=== PATIENT | male | born 1950 | race African-American/Black ===

== ENCOUNTER 2017-03-13 03:01 | Inpatient (IN) | payer MEDICARE ==
[2017-03-13] MEDS ORDERED: Fentanyl 20 MCG/ML 250 ML ONE (03:11)
[2017-03-13 03:28] LABS: Oxyhemoglobin 96.6 % (94.0-97.0); Sodium 142 mmol/L (135-148)
[2017-03-13 03:42] LABS: Mechanical Tidal Volume 450 ml; Modified Allen's Test POSITIVE; Vent YES
[2017-03-13 03:43] LABS: Mode SIMV; Pressure Support 10 cmH2O
[2017-03-13 04:28] LABS: #Lymphocytes 0.7 thou/uL (1.20-3.40); #Monocytes 0.5 thou/uL (0.11-0.59); #Neutrophils 4.4 thou/uL (1.40-6.50); %Basophils 0.3 % (0.0-1.0); %Eosinophils 0.3 % (0.0-10.0); %Lymphocytes 12.3 % (21.0-51.0); %Monocytes 8.4 % (0.0-10.0); Hematocrit 48.4 % (42.0-52.0); Mean Platelet Volume 11.1 fL (7.4-10.4); Red Blood Cell (RBC) Count 5.27 mill/uL (4.70-6.10); White Blood Cell (WBC) Count 5.6 thou/uL (4.8-10.8)
[2017-03-13 04:31] LABS: Lactic Acid - Sepsis 1.7 mmol/L (0.5-2.2)
[2017-03-13 04:35] LABS: ALT (SGPT) 22 U/L (8-55); AST (SGOT) 33 U/L (5-34); Alkaline Phosphatase 138 U/L (40-150); Anion Gap 13 mmol/L (10-20); BUN (Urea Nitrogen) 47 mg/dL (8.4-25.7); Bilirubin, Total 7.2 mg/dL (0.2-1.2); CK (CPK) 167 U/L (30-200); Calc. Creatinine Clearance 0 mL/min (70-130); Calcium 9.1 mg/dL (7.8-10.44); Carbon Dioxide 23 mmol/L (23-31); Chloride 106 mmol/L (98-107); Estimated GFR-MDRD 40; Globulin 4.2 g/dL (2.4-3.5)
[2017-03-13 04:36] LABS: Troponin I 0.089 ng/mL (< 0.028)
[2017-03-13] MEDS ORDERED: Sedation Protocol FS ONE (04:49)
[2017-03-13] MEDS ORDERED: Acetaminophen 325 MG/10.15 ML UDCUP PO PRN (04:49)
[2017-03-13] MEDS ORDERED: CCU Electrolyte Replacement 1 EACH IVPB ONE (04:49)
[2017-03-13] MEDS ORDERED: Potassium Phosphate 12 MMOL in Sodium Chloride 0.9% 250 ML 250 ML IV PRN (05:05)
[2017-03-13] MEDS ORDERED: Fentanyl 20 MCG/ML 250 ML IVPB SCH (05:05)
[2017-03-13] MEDS ORDERED: Potassium Chloride 40 MEQ in Sodium Chloride 0.9% 250 ML 250 ML IVPB PRN (05:05)
[2017-03-13] MEDS ORDERED: Magnesium Oxide 400 MG TAB PO PRN ×2 (05:05)
[2017-03-13] MEDS ORDERED: Potassium Phosphate 9 MMOL in Sodium Chloride 0.9% 100 ML IVPB PRN (05:05)
[2017-03-13] MEDS ORDERED: Magnesium 2 GM/NS 0.9% 100 ML 2 GM in Premix Bag 1 BAG IVPB PRN (05:05)
[2017-03-13] MEDS ORDERED: Potassium Chloride 20 MEQ TAB PO PRN (05:05)
[2017-03-13] MEDS ORDERED: Potassium Chloride 40 MEQ in Premix Bag 1 BAG IVPB PRN (05:05)
[2017-03-13] MEDS ORDERED: Propofol 1,000 MG/100 ML VIAL IV PRN (05:05)
[2017-03-13] MEDS ORDERED: CCU ELECTROLYTE REPLACEMENT PROTOCOL FS PRN (05:05)
[2017-03-13] MEDS ORDERED: DISCONTINUE PREVIOUS NARCOTIC PAIN MEDICATIONS AND BENZODIAZEPINES FS SCH (05:05)
[2017-03-13] MEDS ORDERED: Potassium Phosphate 15 MMOL in Sodium Chloride 0.9% 250 ML 250 ML IV PRN (05:05)
[2017-03-13] MEDS ORDERED: Lorazepam 2 MG/ML VIAL SLOW IVP PRN (05:05)
[2017-03-13] MEDS ORDERED: Morphine 4 MG/ML VIAL IV PRN (05:06)
[2017-03-13] MEDS ORDERED: Albuterol Sulfate 1.25 MG/3 ML NEB NEB PRN (05:47)
[2017-03-13] MEDS: Sodium Chloride 0.9% 1,000 ML IV SCH ×2 (05:58→08:00)
[2017-03-13] MEDS ORDERED: Vancomycin HCl 500 MG in Sodium Chloride 0.9% 100 ML IVPB SCH (06:00)
[2017-03-13] MEDS ORDERED: Piperacillin/Tazobactam 3.375 GM in Sodium Chloride 0.9% 100 ML IVPB SCH (06:00)
[2017-03-13 06:15] LABS: Amphetamine Not Detected (NotDetected); Methadone Not Detected (NotDetected); Methamphetamine Not Detected (NotDetected)
[2017-03-13 06:18] LABS: Acetaminophen Less than 6.0 mcg/mL (10.0-30.0); Salicylate Less than 8.0 mg/dL (15.0-30.0)
--- NOTE | 2017-03-13 07:18 | ER ---
DATE OF SERVICE: 03/13/2017 Please refer to the patient's electronic medical record for further details of his visit. In summary, the patient presents and transferred from [facility], where he presented wit h difficulty breathing and questionable near syncopal episode. Reportedly, he has sustained multiple falls over the past 2 days. He has a history of subdural hematoma and frequent falling in the past. He was intubated at [facility] prior to transfer due to respiratory distress. By thei r report, the patient had acute renal failure as well as CHF exacerbation. He was given Zosyn prior to transfer. This was for bilateral lower extremity cellulitis. On arrival, the patient was agitate d and poorly sedated. This improved significantly with ketamine administration on arrival. An OG tu be was placed, and a repeat chest x-ray was performed, which showed adequate endotracheal and OG tube placement. There is no significant vascular congestion noted on his chest x-ray. He does have lowe r extremity edema bilaterally, with erythema of both feet consistent with cellulitis, with multiple u lcerated areas as well. No family is available in the emergency department for further history or co nsultation. The patient remained hemodynamically stable throughout his ER stay. He was tachycardic on arrival and remained so during his stay. I did not give him IV fluids, given concern for CHF. Ad equate sedation was maintained with fentanyl drip. The patient was given vancomycin in addition to t he Zosyn that he had already received, to complete coverage for serious skin infection. He is in gua rded condition at the time of admission to the ICU.
--- NOTE | 2017-03-13 07:22 | HP-2 ---
LOCATION: [place], [place] DATE OF ADMISSION: 03/13/2017 CODE STATUS: Full. PRIMARY CARE PHYSICIAN: IZAIAH ATTENDING PHYSICIAN: Dr. Brina Franklin RESIDENT PHYSICIAN: Dr. Seth Damian HISTORIAN: Patient. History obtained from ER records as well as outside ER records. CHIEF COMPLAINT: Possible syncopal episode per ER records, however, this is extremely unclear. HISTORY OF PRESENT ILLNESS: The patient is a 66-year-old male from outside ER that was transferred h ere after he was intubated for an unknown reason. There is a questionable history of a syncopal epis ode and reports that family found him slumped in the recliner. He does have a history of numerous re cent falls per the outside ER record. ER COURSE: In outside ER, the patient given 2.25 grams of Zosyn and 1 liter normal saline, Versed an d etomidate. PAST MEDICAL HISTORY: 1. Gout. 2. CHF, ejection fraction 15-20% by the last available echocardiogram. 3. Hypertension. 4. Hyperlipidemia. 5. History of subdural hematoma. 6. History of multiple falls. 7. History of atrial flutter. PAST SURGICAL HISTORY: Hernia repair, subdural dural evacuation and AICD placement. ALLERGIES: Unknown. MEDICATIONS: 1. Allopurinol 300 mg. 2. Amlodipine 5 mg. 3. Atorvastatin 20 mg. 4. Carvedilol 25 mg. 5. Digoxin 0.125. 6. Furosemide 40 mg. 7. Coumadin, unknown dose. 8. Lisinopril 20 mg daily. 9. Potassium chloride 20 mEq daily. 10. Ranitidine 75 mg daily. 11. Tramadol 50 mg daily. 12. Aspirin 81 mg. FAMILY HISTORY: Unknown. SOCIAL HISTORY: Unable to obtain. REVIEW OF SYSTEMS: Unable to obtain. Although there is reports of possible syncopal episode from ou tside the ER. PHYSICAL EXAMINATION: VITAL SIGNS: Blood 120/95, pulse 108, respiratory rate on the vent, 12 breaths per minute, T-max 97. 6, pulse ox 90% on the ventilator. Current weight 90 kilograms. GENERAL: The patient is sedated and on the ventilator. EYES: Pupils are pinpoint, conjunctival icterus present. ENT: TMs are pearly page without bulging or erythema. No evidence of hemotympanum. The patient is intubated with endotracheal and OG tubes in place. NECK: Supple. CARDIOVASCULAR: The patient was tachycardic. No murmurs, rubs or gallops. Radial pulse 2+. Pedal pulse 2+. RESPIRATORY: The patient is intubated. Otherwise, lungs are clear to auscultation bilaterally. ABDOMEN: Soft, nontender, normoactive bowel sounds, no masses, distention or organomegaly is appreci ated. EXTREMITIES: There are numerous ulcers with eschar on the bilateral lower extremities as well as don thematous bilateral lower extremities to the knee. MUSCULOSKELETAL: The patient had decreased tone secondary to sedation. NEUROLOGIC: Patient is sedated. LABORATORY DATA: White blood cell count 6.6, hemoglobin 16.2, hematocrit 47.5, platelets 134. Sodiu m 141, potassium 4.5, chloride 102, bicarbonate 21, BUN 47, creatinine 2.37, glucose 72, calcium 9.9, total protein 8.9, albumin 3.4, AST 50, ALT 32, alkaline phosphatase 173, magnesium 2.1, PT 22.9, IN R 2.0, PTT 32.2. Estimated GFR is 31. CK is 289, troponin I is 0.12. UA showed small amount of blood in the urine, otherwise negative. ABG showed pH of 7.53, pCO2 of 19. EKG showed atrial flutter. Chest x-ray showed an enlarged cardiac silhouette. ASSESSMENT AND PLAN: 1. Hypoxic respiratory failure. The patient will be admitted to the ICU, continued on ventilation p rotocol. Repeat a chest x-ray. The patient will be started on broad spectrum antibiotics. Consider Cardiology consult. Pulmonary/Critical Care will be consulted, appreciate recommendations. Conside r an MRI in the morning. We will check a UDS and alcohol level. 2. Acute on chronic renal failure. The patient will be given IV fluids at 50 mL per hour. We will trend daily BMPs. 3. Elevated troponins, they have trended down from 0.12 to 0.089. We will continue to monitor. 4. Hyperbilirubinemia. We will check a direct and total bilirubin and order a right upper quadrant ultrasound. 5. History of atrial flutter. The patient is anticoagulated. INR is therapeutic. We will repeat c oags and trend. 6. Prophylaxis. The patient will be given SCDs as his INR is currently therapeutic and Pepcid for d eep venous thrombosis and gastrointestinal prophylaxis respectively. DISPOSITION/LENGTH OF STAY: Greater than or equal to 2 days. Symptomatic medication will be provided. History and physical exam as well as management was discussed with Dr. Brina Franklin who agrees with th e above history and physical exam, assessment and plan unless otherwise noted in her addendum.
[2017-03-13 08:19] LABS: Bilirubin, Direct 6.3 mg/dL (0.1-0.3); Bilirubin, Total 8.4 mg/dL (0.2-1.2)
[2017-03-13 08:25] LABS: Oxyhemoglobin 96.8 % (94.0-97.0); Sodium 140 mmol/L (135-148)
[2017-03-13 08:26] LABS: Mechanical Tidal Volume 550 ml; Mode SIMV/PSV; Modified Allen's Test NOT DONE; Pressure Support 10 cmH2O; Vent YES
--- NOTE | 2017-03-13 08:26 | ULT ---
RIGHT UPPER QUADRANT ULTRASOUND: DATE: 03/13/17. HISTORY: Hyperbilirubinemia. COMPARISON: None available. FINDINGS: Increased echogenic material within the gallbladder likely related to a large amount of gallbladder s ludge. No definite gallbladder calculus is seen. The gallbladder wall it thickened measuring 0.4 cm in thickness. The common duct is normal in caliber measuring 0.3 cm. The pancreas and right kidney demonstrate a normal sonographic appearance. The right kidney measures 10.1 cm in length. The IVC and hepatic veins are prominent which may be related to volume status. The liver demonstrates a normal sonographic appearance and no hepatic mass is visualized. There is a small amount of intraperitoneal free fluid seen within the right upper quadrant. IMPRESSION: 1. Gallbladder sludge with thickening of the gallbladder wall. No gallbladder calculus is seen and common duct is normal in caliber. Thickening of the gallbladder wall can be seen with cholecystitis in the correct clinical scenario, hypoproteinemia, liver disease versus other etiologies. 2. Ascites. POS: [facility]
[2017-03-13] MEDS: Piperacillin/Tazobactam 2.25 GM in Sodium Chloride 0.9% 100 ML IVPB SCH ×3 (08:27→20:08)
--- NOTE | 2017-03-13 08:37 | RAD ---
FRONTAL RADIOGRAPH OF CHEST: Date: 03/13/17 COMPARISON: 09/11/16. HISTORY: Intubated patient with dyspnea. FINDINGS: Endotracheal tube and nasogastric tube in proper position. Stable transvenous AICD. Stable enlargemen t of the cardiac silhouette. There is dense opacity in the left lung base suggesting left lower lobe consolidation/collapse. Probable associated small left pleural effusion present. IMPRESSION: Lines and tubes as above. Dense pleural and parenchymal opacity in the left lung base. POS: OFF
[2017-03-13] MEDS ORDERED: Famotidine/PF 20 mg/2ml Vial SLOW IVP SCH (09:00)
[2017-03-13 09:16] LABS: Troponin I 0.084 ng/mL (< 0.028)
--- NOTE | 2017-03-13 15:23 | CON ---
DATE OF CONSULTATION: 03/13/2017 REASON FOR CONSULTATION: ?syncope. REFERRING PROVIDER: Seth Damian DO HISTORY OF PRESENT ILLNESS: Mr. Rivero is an unfortunate 66-year-old gentleman who is a patient of Dr Crystal Ackerman. The history is obtained from the chart. He is currently intubated and sedated with no family present. From the chart, it appears he was transferred from an outlying facility after being intubated. His f amily per the note states that he was found slumped over. No other history noted. PAST MEDICAL HISTORY: Cardiomyopathy with LVEF of 15-20%, hyperlipidemia, hypertension, previous sub dural hematoma, atrial flutter, hernia repair. ALLERGIES: None. HOME MEDICATIONS: Include aspirin, tramadol, ranitidine, potassium, lisinopril, Coumadin, Lasix, dig oxin, carvedilol, atorvastatin, amlodipine, allopurinol. SOCIAL HISTORY: Unobtainable. REVIEW OF SYSTEMS: Unobtainable. PHYSICAL EXAMINATION: VITAL SIGNS: Blood pressure 140/90, pulse 113, respirations 20. GENERAL: Patient is a pleasant male who is in no acute distress. The patient appears his/her stated age. He is currently intubated and sedated. NEUROLOGIC: The patient is alert and oriented times 3 with no focal neurologic deficits. HEENT: Sclerae without icterus. Mouth has moist mucous membranes with normal pallor. NECK: No JVD. Carotid upstroke brisk. No bruits bilaterally. LUNGS: Clear to auscultation with unlabored respirations. BACK: No scoliosis or kyphosis. CARDIAC: Regular rate and rhythm with normal S1 and S2. No S3 or S4 noted. No significant rubs, mu rmurs, thrills, or gallops noted throughout the precordium. PMI is not displaced. There is no angelic ternal heave. ABDOMEN: Soft, nontender, nondistended. No peritoneal signs present. No hepatosplenomegaly. No ab normal striae. EXTREMITIES: 2+ femoral and 2+ dorsalis pedis pulses. No cyanosis, clubbing, or edema. SKIN: No gross abnormalities. LABORATORY: Hemoglobin 15.2, white count 5.6. Creatinine 2.02, BUN 47, CK-MB of 8. Peak troponin 0 .089. BNP of 2659. IMPRESSION: 1. Respiratory failure. 2. ?syncope. 3. Cardiomyopathy with last catheterization dated 07/18/2016, felt to be normal. RECOMMENDATIONS: Etiology to his current demise is unknown. This may have been all heart failure re lated. If he truly slumped over, may have been due to dysrhythmia. I do not have the records from [facility] emergency room to note whether he had appropriate blood pressure. At this point, we will have the ICD interrogated. We will repeat his echo. His BNP suggest heart failure. Previous creatinine als o suggested that this is acute on chronic renal insufficiency. The patient has had a previous subdur al hematoma, I would recommend a repeat CT scan.
--- NOTE | 2017-03-13 18:22 | CON ---
DATE OF CONSULTATION: 03/13/2017 HISTORY OF PRESENT ILLNESS: Mr. Rivero is a 66-year-old male. History is obtained from the records s jay he is intubated. Apparently, he was intubated for altered mental status and transferred here. He is primarily followe d at the [facility]. He was here in October and at that time he had bilateral chronic subdural hematomas. I am told by the nursing staff that he has a history of frequent falls. He also has a history of a cardiomyopathy. PAST MEDICAL HISTORY: Remarkable for a lipid disorder, hypertension, atrial flutter, herniorrhaphy. It is unknown whether he smokes or drinks. He was a heavy drinker in the past. Reviewing older records, it appears that on 09/12/2016 of this year, he had bilateral ivy hole evacu ation of his subdurals by Dr. Ruiz. Apparently had atrial flutter in the perioperative period and was seen by Dr. Reyes. Prior to that admission, he was reportedly chronically anticoagulated. He does have a defibrillator in place. He apparently has undergone cardiac catheterization in the past. He was admitted in 07/2016 with facial lacerations, facial fractures. He was here from 07/19/2016 to 07/25/2016. He was discharged from the hospital in July on his Xarelto. He came back in approximately 6 weeks l ater with his subdural hematomas. There is a note on the admission H and P that the patient had stop ped his Xarelto sometime along the way on his own. FAMILY HISTORY: Negative for lung disease at an early age. PHYSICAL EXAMINATION: VITAL SIGNS: Heart rate is 113, blood pressure 114/90, respiratory rate is per mechanical ventilatio n, oximetry is 100%. HEENT: Pupils are small and sluggish. Sclerae are anicteric. LUNGS: Clear anteriorly. HEART: Regular rhythm. ABDOMEN: Soft. EXTREMITIES: Without asymmetry. I do not see any blood culture results yet in the computer. His white count was normal on presentati on. Hemoglobin was 15, where has in September it was 13, suggests maybe it was little intravascularly vol ume depleted. It is interesting in that his liver enzymes are normal, but his bilirubin is 8.4. His BNP was 2659. His albumin was 2.8. I do not see a urinalysis to determine whether or not he is hav ing proteinuria mixed with this. IMPRESSION: Altered mental status of unclear etiology. He has chronic stasis ulcers over both lower extremities. Encephalopathy of unclear etiology, will remain mechanically ventilated. GI has been consulted. Ult rasound may be suggestive of cholecystitis. His elevated creatinine may be secondary to intravascula r volume depletion. With a such limited history on him, it is hard to know what the primary problem is at this point. We will be happy to follow with the other physicians caring for him. Blood gas sh ows that he has mild metabolic acidosis, it is partially compensated with a pH 7.33, CO2 of 41, and p O2 of 160. I suspect this is related to his renal dysfunction. It would not be unreasonable to chec k a cortisol and ammonia level.
[2017-03-13] MEDS ORDERED: Amiodarone HCl 450 MG in Dextrose 5% in Water 250 ML IVPB SCH ×2 (19:00)
--- NOTE | 2017-03-13 19:03 | CON ---
DATE OF CONSULTATION: 03/13/2017 HISTORY OF PRESENT ILLNESS: Patient is a 66-year-old -[place] gentleman who was brought to [facility] emergency room for frequent falls. Apparently there he had some respiratory distress and was intubated. He adds nothing to history of present illness. Consultation for GI was done because of abnormal liver function tests. Apparently according to the electronic medical record and nursing personnel, the patient does not have a history of alcohol abuse. He just had an echocardiogram done and the preliminary ejection fraction was 13%. Reviewing his bilirubin from prior hospitalization july of this year, his bilirubin was elevated at 2.8, then went to 3.1; in September it was 1.7 and t his hospitalization it is 7.2 and 8.4. AST was elevated in July of this year. ALT was also elevate d in July of this year. These are now normal. Alkaline phosphatase is normal. PAST MEDICAL/SURGICAL HISTORY: Includes gout, congestive heart failure, hypertension, hyperlipidemia , subdural hematoma, multiple falls, facial fractures, and atrial flutter. PAST MEDICAL HISTORY: Includes subdural evacuation, defibrillator placement, herniorrhaphy. ALLERGIES: No known allergies per the electronic medical record. HOME MEDICATIONS: Include tramadol 50 mg p.o. q.6 hours p.r.n., Keppra 500 mg p.o. b.i.d., potassium chloride 10 mEq p.o. daily, omeprazole 20 mg p.o. daily, multivitamin 1 p.o. daily, lisinopril 10 mg p.o. daily, Lasix 40 mg p.o. b.i.d., digoxin 0.125 mg p.o. daily, cephalexin 500 mg p.o. q.6 hours, Coreg 25 mg p.o. b.i.d., Lipitor 10 mg p.o. at bedtime, allopurinol 300 mg p.o. daily, albuterol inha ler, acetaminophen with codeine, and albuterol. SOCIAL HISTORY, FAMILY HISTORY AND REVIEW OF SYSTEMS: Unobtainable. PHYSICAL EXAMINATION: GENERAL: Shows a sedated -[place] gentleman in no acute distress. VITAL SIGNS: Temperature 97.7, pulse 114, respiratory rate 12, blood pressure 109/83. HEENT: Shows scleral icterus. NECK: Supple. CHEST: Clear. CARDIOVASCULAR: Regular rate and rhythm. ABDOMEN: Protuberant, but soft. No organomegaly or masses appreciable. He has a small umbilical he rnia. RECTAL: Deferred. EXTREMITIES: Show some pitting edema on the left lower extremity and bilateral ulcers on both lower extremities. LABORATORY DATA: Shows a normal CBC except for platelet count of 103. Chemistries show a total bili madrigal 7.2 with normal transaminases and normal alkaline phosphatase. Repeat showed a total bilirubin 8.4 with a direct of 6.3. BNP was 2659. Troponin was 0.084. BUN is 47, creatinine 2.02, glucose 7 5, albumin 2.8. Toxicology showed a digoxin of 0.3. Salicylate was less than 8. Acetaminophen was less than 6. Plasma alcohol is less than 10. HIV is nonreactive. Syphilis is nonreactive. Right u pper quadrant ultrasound showed gallbladder sludge with thickening of the gallbladder wall, small rebecca unt of ascites, the common bile duct is normal in caliber. ASSESSMENT: 1. Respiratory failure. 2. Frequent falls. 3. History of subdural hematoma. 4. Isolated conjugated hyperbilirubinemia - most likely secondary to the patient's severe cardiomyop athy and reduced ejection fraction. Other possibilities would be acute worsening of chronic underlyi ng liver disease. RECOMMENDATIONS: 1. Hepatitis panel. 2. Continue to follow bilirubin. 3. May consider CT of the liver if renal function improves substantially. 4. We will follow with you.
[2017-03-13 19:47] LABS: Prothrombin Time 22.2 SEC (12.0-14.7)
[2017-03-13] MEDS ORDERED: Warfarin Sodium 5 MG TAB PO SCH (20:30)
[2017-03-14] MEDS: Piperacillin/Tazobactam 2.25 GM in Sodium Chloride 0.9% 100 ML IVPB SCH ×4 (01:02→20:42)
[2017-03-14] MEDS: Sodium Chloride 0.9% 1,000 ML IV SCH (01:02)
[2017-03-14] MEDS: Amiodarone In Dextrose 200 ML IVPB SCH ×2 (02:41→16:31)
[2017-03-14] MEDS: Vancomycin HCl 1.5 GM in Sodium Chloride 0.9% 250 ML 300 ML IVPB SCH (05:03)
[2017-03-14 05:35] LABS: PTT 38.4 SEC (22.9-36.1); Prothrombin Time 21.5 SEC (12.0-14.7)
[2017-03-14 05:44] LABS: Anion Gap 13 mmol/L (10-20); BUN (Urea Nitrogen) 40 mg/dL (8.4-25.7); Calc. Creatinine Clearance 55 mL/min (70-130); Calcium 8.8 mg/dL (7.8-10.44); Carbon Dioxide 25 mmol/L (23-31); Chloride 108 mmol/L (98-107); Estimated GFR-MDRD 50
[2017-03-14 05:46] LABS: ALT (SGPT) 19 U/L (8-55); AST (SGOT) 24 U/L (5-34); Alkaline Phosphatase 124 U/L (40-150); Bilirubin, Direct 5.7 mg/dL (0.1-0.3); Bilirubin, Total 7.4 mg/dL (0.2-1.2); Protein, Total 6.7 g/dL (5.8-8.1)
[2017-03-14 06:46] LABS: Band 2 % (5-11); Bite Cells SLIGHT = 2-5 cells (100X) (0-1/hpf); Hematocrit 50.1 % (42.0-52.0); Mean Platelet Volume 11.3 fL (7.4-10.4); Neutrophil 85 % (42-75); Nucleated RBC 1 % (0); Red Blood Cell (RBC) Count 5.45 mill/uL (4.70-6.10); White Blood Cell (WBC) Count 6.8 thou/uL (4.8-10.8)
[2017-03-14 07:53] LABS: Oxyhemoglobin 96.9 % (94.0-97.0); Sodium 144 mmol/L (135-148)
[2017-03-14 07:56] LABS: Mechanical Tidal Volume 550 ml; Modified Allen's Test NOT DONE; Vent YES
[2017-03-14 07:57] LABS: Mode SIMV/PSV; Pressure Support 10 cmH2O
[2017-03-14] MEDS ORDERED: Furosemide 20 MG/2 ML VIAL SLOW IVP SCH (08:15)
[2017-03-14] MEDS: D5 1/2 NS w/20 mEq KCL 1,000 ML IV SCH (08:43)
[2017-03-14] MEDS ORDERED: Pantoprazole 40 MG VIAL IVP SCH (09:00)
--- NOTE | 2017-03-14 09:03 | RAD ---
PORTABLE CHEST: COMPARISON: Prior day's study. HISTORY: Intubation. FINDINGS: Endotracheal and NG tubes are in satisfactory position. Heart size is enlarged. Internal defibrilla tor device is present. No signs of overt failure. IMPRESSION: Essentially stable exam. POS: [facility]
--- NOTE | 2017-03-14 12:23 | PRG ---
DATE OF SERVICE: 03/14/2017 SUBJECTIVE: Mr. Rivero is awake and alert. Surprisingly, he is in no distress. Passes a leak test. His minute volume is 7-8 liters a minute. OBJECTIVE: VITAL SIGNS: His blood pressure is 113/79, heart rate is 115, respiratory rate in the teens. Oximet ry is in the low 90s. LUNGS: Clear. HEART: Regular rhythm. ABDOMEN: Soft. Ammonia was normal yesterday. Cortisol was 16. LABORATORY AND IMAGING DATA: White count 6.8, hemoglobin 15 grams and platelets 100,000. Sodium 143, potassium 3.4, chloride 108, bicarbonate 25, BUN 40, creatinine 1.6. Bilirubin has gone from 8.4-7.4. He is in sinus rhythm now. ASSESSMENT AND PLAN: I think he is in extremely high risk for complications with anticoagulation, so I would recommend withholding anticoagulation at this point. He had a fall and then developed eithe r bilateral subdurals as a result of his fall at a later date on anticoagulation or independent of th e fall or perhaps from a fall that no one knew about. I think the risk of this happening again is hi gh because of his history of frequent falls and I would recommend no anticoagulation at least for now until he can be documented to be stable on his feet. I do believe he is a candidate for extubation at this point his encephalopathy for whatever reason has resolved. He has passed a leak test and evaristo l be extubated. CRITICAL CARE TIME: 30 minutes.
--- NOTE | 2017-03-14 14:18 | ADD-PRG ---
ADDENDUM: 03/14/[address] the note of Dr. Nancy Thayer. Mr. Rivero is a 66-year-old black male patient with significant history of heart failure who was trans ferred from an outside ED. He was found "slumped over" and was subsequently intubated and transporte d to our institution. This morning, the patient is awake and alert and ready to be extubated, which will be carried out lucinda rtly. Labs looked good with a hemoglobin of 15.5 and hematocrit of 50. Chemistries: Sodium is 143, potassium 3.4, chloride 108, bicarbonate is 25, BUN 40 and creatinine is 1.65. He has a significant elevation of the bilirubin to 7.4 with a direct of 5.7, although his transaminases are normal. Extu bation is soon to follow.
[2017-03-14] MEDS ORDERED: Warfarin Sodium 5 MG TAB PO SCH (17:00)
--- NOTE | 2017-03-14 18:13 | PRG ---
DATE OF SERVICE: 03/14/2017 SUBJECTIVE: The patient has been extubated. He reports he is hungry. He denies any abdominal pain. OBJECTIVE: VITAL SIGNS: Temperature is 98.2, pulse 106, respiratory rate 21 and blood pressure 109/71. LABORATORY DATA: Shows a normal CBC except for platelet count of 100,000. Chemistries showed a tota l bilirubin of 7.5, with a direct of 5.7. Transaminases and alkaline phosphatase are normal. Albumi n is 26. ASSESSMENT: 1. Isolated elevated conjugated bilirubin. 2. Respiratory failure. 3. Cardiomyopathy. RECOMMENDATIONS: Recheck bilirubin. If it continues to decrease, would suspect this is probably rel ated to his severe cardiomyopathy. No other workup needs to be performed.
--- NOTE | 2017-03-14 20:21 | PDOC.FM ---
- Subjective Subjective: Pt intubated and sedated but waking up with stimulation and somewhat following commands. While on sedation vacation over night, pt became very agitated and tried to self-extubate but was able to be re-sedated. No acute events otherwise. - Objective MAR Reviewed: Yes Vital Signs & Weight: Vital Signs (12 hours) Temp Pulse Resp Pulse Ox 03/14/17 18:22 106 H 24 H 100 03/14/17 16:00 98.5 F 03/14/17 15:08 106 H 21 H 96 03/14/17 12:00 98.2 F 96 03/14/17 11:08 115 H 18 98 03/14/17 10:35 116 H 26 H 94 L 03/14/17 10:00 18 Weight Admit Weight 89.811 kg Weight 90.7 kg Most Recent Monitor Data Heart Rate from ECG 108 NIBP 120/89 NIBP BP-Mean 101 Respiration from ECG 18 SpO2 98 I&O: 03/13/17 03/14/17 03/15/17 06:59 06:59 06:59 Intake Total 1979.7 1102.3 Output Total 325 3080 1065 Balance -325 -1100.3 37.3 Result Diagrams: 03/14/17 05:03 03/14/17 05:03 EKG Reviewed by me: Yes (sinus tach to 110s on tele monitor) Radiology Reviewed by me: Yes (right small pleural effusion) Phys Exam - Physical Examination Constitutional: NAD intubated & sedated HEENT: moist MMs, oral pharynx no lesions mild JVD poor air movement in right lung base Cardiovascular: no significant murmur regular but tachycardic Gastrointestinal: soft, non-tender, no distention, positive bowel sounds Musculoskeletal: edema present (trace UE edema) sedated Dx/Plan (1) Acute respiratory failure with hypoxia Code(s): J96.01 - ACUTE RESPIRATORY FAILURE WITH HYPOXIA Status: Acute (2) Acute on chronic systolic heart failure Code(s): I50.23 - ACUTE ON CHRONIC SYSTOLIC (CONGESTIVE) HEART FAILURE Status : Acute (3) Hyperbilirubinemia Code(s): E80.6 - OTHER DISORDERS OF BILIRUBIN METABOLISM Status: Acute (4) Acute worsening of stage 3 chronic kidney disease Code(s): N18.3 - CHRONIC KIDNEY DISEASE, STAGE 3 (MODERATE) Status: Acute (5) Dyslipidemia Code(s): E78.5 - HYPERLIPIDEMIA, UNSPECIFIED Status: Chronic (6) Hypertension Code(s): I10 - ESSENTIAL (PRIMARY) HYPERTENSION Status: Chronic Qualifiers: Hypertension type: unspecified Qualified Code(s): I10 - Essential (primary ) hypertension (7) Non-ischemic cardiomyopathy Code(s): I42.9 - CARDIOMYOPATHY, UNSPECIFIED Status: Chronic (8) Atrial fibrillation Code(s): I48.91 - UNSPECIFIED ATRIAL FIBRILLATION Status: Chronic Qualifiers: Atrial fibrillation type: paroxysmal Qualified Code(s): I48.0 - Paroxysmal atrial fibrillation (9) Atrial flutter Code(s): I48.92 - UNSPECIFIED ATRIAL FLUTTER Status: Resolved Qualifiers: Atrial flutter type: typical Qualified Code(s): I48.3 - Typical atrial flutter - Plan Plan: 66yo AAM with poor history but by review of records has h/o multiple prior subdural hematomas, CKD, HTN, CHF and HLD who presents from outside ED intubated from undetermined etiology aside from hypoxia-- 1) Acute hypoxic respiratory failure- pt did well on SIMV on HD #1, currently on spontaneous breathing trial and following commands. Likely will be extubated later today. CXR shows inc in interval rt pleural effusion overnight. Will give lasix IV this am and monitor I&Os. change IVF from NS to D5 1/2NS + 20KCl. Pulm on board. 2) presumed acute on chronic systolic CHF- repeated echo shows EF 5-10% with AICD and pacer. Fluid restrict, strict I&O, daily weight, monitor fluid status closely. lasix now as above. 3) ALEXSANDRA on CKD- acute kidney injury likely secondary to demand ischemia of kidneys during resp distress. continuing to improve this morning. avoid nephrotoxins and monitor for improvement. 4) A Flutter- resolved after AICD/pacer reset by [employer] last night. remains in sinus tach at this time. Not an anticoagulant candidate due to prior subdurals (one of which was spontaneous and frequent falls). HAS BLED score = 5 with almost 10% risk of major bleed. Will confirm meds with family as med list per outside ER stated pt is on coumadin. On amiodarone gtt per Dr. eGe. 5) Encephalopathy, NOS- undetermined if acute or chronic. may be sedation- induced, neurogenic, or neither. CT Head at outside facility negative. Will wean sedation, reorient and monitor for improvement. 6) Hyperbilirubinemia- likely due to severe CHF, however will monitor. GI on board. appreciate recs. Attending- Dr. Grace.
[2017-03-14] MEDS: traMADol HCl 50 MG TAB PO PRN (20:37)
[2017-03-14] MEDS ORDERED: Carvedilol 25 MG TAB PO SCH (20:45)
[2017-03-14 21:17] LABS: Bilirubin Moderate (Negative); Blood, Urine Large (Negative); Glucose, Urine (Dipstick) Negative (Negative); Ketone, Urine Negative (Negative); Nitrite Negative (Negative); Protein, Urine (Dipstick) 100 mg/dL (Neg-Trace)
[2017-03-14 21:18] LABS: Bacteria/HPF Rare-Few HPF (None Seen); Hyaline Casts/LPF 0-3 HYALINE CAST LPF (0-3 Hyaline); RBC/HPF GREATER THAN 50-TNTC HPF (0-3); Squamous Epithelial 0-3 HPF (0-3); WBC/HPF 21-50 HPF (0-3)
[2017-03-14] MEDS: Atorvastatin Calcium 40 MG TAB PO SCH (21:19)
[2017-03-15] MEDS ORDERED: Sodium Chloride 0.9% 500 ML IVPB SCH (02:00)
[2017-03-15] MEDS: Piperacillin/Tazobactam 2.25 GM in Sodium Chloride 0.9% 100 ML IVPB SCH ×3 (02:08→07:56)
[2017-03-15] MEDS: D5 1/2 NS w/20 mEq KCL 1,000 ML IV SCH (04:12)
[2017-03-15] MEDS: Vancomycin HCl 1.5 GM in Sodium Chloride 0.9% 250 ML 300 ML IVPB SCH (04:12)
[2017-03-15] MEDS: Amiodarone In Dextrose 200 ML IVPB SCH (04:12)
[2017-03-15 04:21] LABS: PTT 44.8 SEC (22.9-36.1); Prothrombin Time 23.1 SEC (12.0-14.7)
[2017-03-15 04:25] LABS: Band 1 % (5-11); Hematocrit 46.9 % (42.0-52.0); Mean Platelet Volume 11.8 fL (7.4-10.4); Neutrophil 76 % (42-75); Red Blood Cell (RBC) Count 5.09 mill/uL (4.70-6.10); Target Cells SLIGHT = 2-5 cells (100X) (0-1/hpf); White Blood Cell (WBC) Count 5.5 thou/uL (4.8-10.8)
[2017-03-15 04:30] LABS: Anion Gap 11 mmol/L (10-20); BUN (Urea Nitrogen) 34 mg/dL (8.4-25.7); Calc. Creatinine Clearance 59 mL/min (70-130); Calcium 8.4 mg/dL (7.8-10.44); Carbon Dioxide 27 mmol/L (23-31); Chloride 107 mmol/L (98-107); Estimated GFR-MDRD 55
[2017-03-15 04:31] LABS: ALT (SGPT) 17 U/L (8-55); AST (SGOT) 21 U/L (5-34); Alkaline Phosphatase 100 U/L (40-150); Bilirubin, Total 6.5 mg/dL (0.2-1.2); Protein, Total 6.2 g/dL (5.8-8.1)
--- NOTE | 2017-03-15 07:21 | PDOC.FM ---
- Subjective Subjective: Pt awake and oriented only to self. Reoriented during morning's visit. Denies any pain at this time. - Objective MAR Reviewed: Yes Vital Signs & Weight: Vital Signs (12 hours) Temp Pulse Resp Pulse Ox 03/15/17 04:00 98.3 F 03/15/17 02:54 72 22 H 03/15/17 00:00 97.8 F 03/14/17 22:43 111 H 33 H 03/14/17 20:00 97.6 F 111 H 26 H 94 L Weight Admit Weight 89.811 kg Weight 91.3 kg Most Recent Monitor Data Heart Rate from ECG 67 NIBP 91/66 NIBP BP-Mean 78 Respiration from ECG 23 SpO2 98 I&O: 03/14/17 03/15/17 03/16/17 06:59 06:59 06:59 Intake Total 1979.7 3791.3 Output Total 3080 1350 Balance -1100.3 2441.3 Result Diagrams: 03/15/17 04:00 03/15/17 04:00 EKG Reviewed by me: Yes (normal sinus rhythm in 60s) Radiology Reviewed by me: Yes (improved right & left pleural effusions, no consolidations) Phys Exam - Physical Examination Constitutional: NAD HEENT: moist MMs, oral pharynx no lesions facial lac- well healing Neck: no JVD, supple Respiratory: no wheezing, clear to auscultation bilateral Cardiovascular: RRR, no significant murmur Gastrointestinal: soft, non-tender mildly distended Musculoskeletal: no edema Neurological: non-focal Psychiatric: normal affect Deviation from normal: oriented to self Skin: no rash Dx/Plan (1) Acute respiratory failure with hypoxia Code(s): J96.01 - ACUTE RESPIRATORY FAILURE WITH HYPOXIA Status: Acute (2) Acute on chronic systolic heart failure Code(s): I50.23 - ACUTE ON CHRONIC SYSTOLIC (CONGESTIVE) HEART FAILURE Status : Acute (3) Hyperbilirubinemia Code(s): E80.6 - OTHER DISORDERS OF BILIRUBIN METABOLISM Status: Acute (4) Acute worsening of stage 3 chronic kidney disease Code(s): N18.3 - CHRONIC KIDNEY DISEASE, STAGE 3 (MODERATE) Status: Acute (5) Dyslipidemia Code(s): E78.5 - HYPERLIPIDEMIA, UNSPECIFIED Status: Chronic (6) Hypertension Code(s): I10 - ESSENTIAL (PRIMARY) HYPERTENSION Status: Chronic Qualifiers: Hypertension type: unspecified Qualified Code(s): I10 - Essential (primary ) hypertension (7) Non-ischemic cardiomyopathy Code(s): I42.9 - CARDIOMYOPATHY, UNSPECIFIED Status: Chronic (8) Atrial fibrillation Code(s): I48.91 - UNSPECIFIED ATRIAL FIBRILLATION Status: Chronic Qualifiers: Atrial fibrillation type: paroxysmal Qualified Code(s): I48.0 - Paroxysmal atrial fibrillation (9) Atrial flutter Code(s): I48.92 - UNSPECIFIED ATRIAL FLUTTER Status: Resolved Qualifiers: Atrial flutter type: typical Qualified Code(s): I48.3 - Typical atrial flutter - Plan Plan: 66yo AAM with poor history but by review of records has h/o multiple prior subdural hematomas, CKD, HTN, CHF and HLD who presents from outside ED intubated from undetermined etiology aside from hypoxia-- 1) Acute hypoxic respiratory failure- doing well after extubation yesterday. satting 90s on 2L O2. Etiology unclear at this time- may be secondary to fluid overload from CHF vs. arrhythmia (pt in persistent Aflutter on arrival) vs. infectious etiology. BCx show NGTD. Descalate abx at this time-- d/c vanc and zosyn and likely po augmentin vs. omnicef. 2) presumed acute on chronic systolic CHF- repeated echo shows EF 5-10% with AICD and pacer. Fluid restrict, strict I&O, daily weight, monitor fluid status closely. lasix restarted po today. 3) ALEXSANDRA on CKD- acute kidney injury likely secondary to demand ischemia during resp distress. continuing to improve this morning. avoid nephrotoxins and monitor for improvement. 4) A Flutter- resolved after AICD/pacer reset by [employer] upon arrival. Pt noted to be in Aflutter for many months per interrogation, but remains in sinus tach at this time. Not an anticoagulant candidate due to prior subdurals (one of which was spontaneous and frequent falls). HAS BLED score = 5 with almost 10% risk of major bleed. On amiodarone gtt per Dr. Gee, and will likely transition to po today. 5) Encephalopathy, NOS- may be sedation-induced, neurogenic, or neither. CT Head at outside facility negative. continue to reorient. 6) Hyperbilirubinemia- likely due to severe CHF with hepatic congestion. improving.
[2017-03-15] MEDS: Carvedilol 6.25 MG TAB PO SCH ×2 (07:55→18:10)
[2017-03-15] MEDS: Lisinopril 10 MG TAB PO SCH (07:56)
[2017-03-15] MEDS: Multivit, Therapeutic 1 TAB PO SCH (07:56)
[2017-03-15] MEDS: Furosemide 40 MG TAB PO SCH ×2 (07:56→13:20)
[2017-03-15] MEDS ORDERED: Carvedilol 25 MG TAB PO SCH (08:00)
--- NOTE | 2017-03-15 08:46 | PRG ---
DATE OF SERVICE: 03/15/2017 SUBJECTIVE: The patient is much better today. He is eating. He is ready for more solid food. He i s having no abdominal pain. OBJECTIVE: VITAL SIGNS: Blood pressure 93/66, respiratory rate of 20, pulse of 63, temperature is 97.9. CHEST: Clear. CARDIOVASCULAR: Regular rate and rhythm. ABDOMEN: Soft, nontender, without organomegaly. LABORATORY DATA: Shows a total bilirubin of 6.5, direct bilirubin of 5.0. AST and ALT as well as al kaline phosphatase were all normal. ASSESSMENT: Isolated, elevated, conjugated bilirubin -- is unusual picture, but probably related to the patient's cardiomyopathy and probably some hepatic congestion. It seems to be improving. No oth er further workup needs to be performed. RECOMMENDATIONS: We will sign off.
[2017-03-15] MEDS ORDERED: FLU VACC TS2017-18 (>65YR) 0.5 ML SYRINGE IM ONE (09:00)
[2017-03-15] MEDS: Amoxicillin/Potassium Clav 875 MG TAB PO SCH ×2 (09:53→20:22)
--- NOTE | 2017-03-15 09:55 | ULT ---
BLADDER ULTRASOUND: HISTORY: Moody not draining. Decreased output. FINDINGS: There is ascites noted. The bladder appears contracted. A Moody catheter is in place. The bladder wall appears somewhat thick-walled, even considering the contraction. IMPRESSION: 1. Moderate ascites. 2. Moody catheter appears to be within the bladder which appears completely contracted on this exam. POS: [facility]
--- NOTE | 2017-03-15 10:22 | RAD ---
PORTABLE CHEST: HISTORY: Respiratory distress. COMPARISON: 03/14/17 exam. FINDINGS: The endotracheal and NG tubes have been removed. Heart size is enlarged. No signs of overt failure. IMPRESSION: 1. Interval removal of the endotracheal and nasogastric tubes. 2. Marked cardiomegaly. POS: [facility]
[2017-03-15] MEDS: traMADol HCl 50 MG TAB PO PRN (12:15)
--- NOTE | 2017-03-15 12:39 | ADD-PRG ---
DATE OF SERVICE: 03/15/2017 ADDENDUM This is an addendum to the note of Dr. Nancy Thayer. Mr. Rivero is awake and alert this morning, having been extubated yesterday. His vital signs are stab le and we will transfer him to the regular floor. He really cannot give us much more history than we have already in that he thinks he "passed out." He denies any chest pain. His AICD has been interr ogated and evidently readjusted. His labs this morning are within normal range except for a slight e levation of his creatinine to 1.54 with GFR of 55.
--- NOTE | 2017-03-15 18:14 | PRG ---
DATE OF SERVICE: 03/14/2017 SUBJECTIVE: Mr. Rivero actually is awake, alert, in no distress after being extubated. OBJECTIVE: GENERAL: He is oriented x3. VITAL SIGNS: He is afebrile, heart rate 60, respiratory rate 21, oximetry is 99 on 2 liters, blood p ressure 98/54. LUNGS: Clear. HEART: Regular rhythm. ABDOMEN: Soft. LABORATORY DATA: White count 5.5, hemoglobin 14.8, platelets 78,000. Sodium 141, potassium 3.6, chloride 107, bicarbonate 27, BUN 34, creatinine 1.54, which is improved f rom 1.65 yesterday. IMPRESSION: Respiratory failure with encephalopathy that is resolved. All cultures are negative so far. I believe he is medically stable to move out of the critical care environment.
[2017-03-15] MEDS: Atorvastatin Calcium 40 MG TAB PO SCH (20:22)
[2017-03-15] MEDS: Amiodarone 200 MG TAB PO SCH (20:22)
[2017-03-16 05:01] LABS: Prothrombin Time 21.2 SEC (12.0-14.7)
[2017-03-16 05:12] LABS: Anion Gap 14 mmol/L (10-20); BUN (Urea Nitrogen) 33 mg/dL (8.4-25.7); Calc. Creatinine Clearance 63 mL/min (70-130); Calcium 8.6 mg/dL (7.8-10.44); Carbon Dioxide 22 mmol/L (23-31); Chloride 106 mmol/L (98-107); Estimated GFR-MDRD 59
[2017-03-16 05:26] LABS: Band 2 % (5-11); Hematocrit 47.9 % (42.0-52.0); Neutrophil 84 % (42-75); Red Blood Cell (RBC) Count 5.17 mill/uL (4.70-6.10); Target Cells SLIGHT = 2-5 cells (100X) (0-1/hpf); White Blood Cell (WBC) Count 8.1 thou/uL (4.8-10.8)
--- NOTE | 2017-03-16 09:11 | PRG ---
DATE OF SERVICE: 03/16/2017 HISTORY: Mr. Rivero says he is feeling better, says his breathing is better. PHYSICAL EXAMINATION: VITAL SIGNS: Blood pressure is 115/78, pulse 76 regular. LUNGS: Clear. NECK: The neck veins are markedly distended. CARDIAC: Normal S1, S2. ABDOMEN: Soft, nontender. EXTREMITIES: Mild edema. ASSESSMENT: 1. Severe congestive heart failure. 2. Ventricular arrhythmias. 3. Atrial arrhythmias. PLAN: 1. EP has been consulted about the possibility of ablation for the atrial flutter. 2. He has a defibrillator in place concerning ventricular tachycardia. No other recommendations at this point. The patient wishes to have the Moody catheter removed.
[2017-03-16] MEDS ORDERED: Furosemide 40 MG/4 ML VIAL SLOW IVP SCH (09:15)
[2017-03-16] MEDS: Amoxicillin/Potassium Clav 875 MG TAB PO SCH ×2 (09:51→20:23)
[2017-03-16] MEDS: Carvedilol 6.25 MG TAB PO SCH ×2 (09:51→16:04)
[2017-03-16] MEDS: Amiodarone 200 MG TAB PO SCH ×2 (09:51→20:23)
[2017-03-16] MEDS: Multivit, Therapeutic 1 TAB PO SCH (09:51)
[2017-03-16] MEDS: Furosemide 40 MG TAB PO SCH ×2 (09:52→16:04)
--- NOTE | 2017-03-16 10:15 | PDOC.FM ---
- Subjective Subjective: CC: Ready to go home HPI: Patient resting comfortably in bed. Explained plan for today. patient states his memory is returning and understands he was confused over the past few weeks. Does not remember when his last visited. - Objective MAR Reviewed: Yes Vital Signs & Weight: Vital Signs (12 hours) Temp Pulse Resp BP Pulse Ox 03/16/17 08:10 97.8 F 76 20 115/78 94 L 03/16/17 07:46 97 03/16/17 07:44 88 20 97 03/16/17 04:00 81 18 108/73 94 L 03/16/17 03:38 93 L 03/15/17 23:40 98 03/15/17 23:39 98 Weight Admit Weight 89.811 kg Weight 90.356 kg Most Recent Monitor Data Heart Rate from ECG 74 NIBP 86/61 NIBP BP-Mean 75 Respiration from ECG 24 SpO2 95 I&O: 03/15/17 03/16/17 03/17/17 06:59 06:59 06:59 Intake Total 3791.3 1926 Output Total 1350 955 Balance 2441.3 971 Result Diagrams: 03/16/17 04:25 03/16/17 04:25 EKG Reviewed by me: Yes (2 brief episodes (5 and 8 beats) of V-tach overnight. A -paced rate 80s) <Nick Rodriguez - Last Filed: 03/16/17 10:12> - Objective Vital Signs & Weight: Vital Signs (12 hours) Temp Pulse Resp BP Pulse Ox 03/16/17 12:04 82 22 H 03/16/17 11:32 97.4 F L 81 20 118/85 98 03/16/17 08:10 97.8 F 76 20 115/78 94 L 03/16/17 08:00 97.8 F 82 22 H 03/16/17 07:46 97 03/16/17 07:44 88 20 97 03/16/17 04:00 81 18 108/73 94 L 03/16/17 03:38 93 L Weight Admit Weight 89.811 kg Weight 90.356 kg Most Recent Monitor Data Heart Rate from ECG 74 NIBP 86/61 NIBP BP-Mean 75 Respiration from ECG 24 SpO2 95 I&O: 03/15/17 03/16/17 03/17/17 06:59 06:59 06:59 Intake Total 3791.3 1926 Output Total 1350 955 Balance 2441.3 971 Result Diagrams: 03/16/17 04:25 03/16/17 04:25 <David Flor - Last Filed: 03/16/17 14:23> Phys Exam - Physical Examination Constitutional: NAD HEENT: sclera anicteric Dry MM Neck: no nodes, supple Respiratory: no wheezing, clear to auscultation bilateral Cardiovascular: RRR, no significant murmur Gastrointestinal: soft, non-tender Musculoskeletal: no edema Neurological: non-focal, moves all 4 limbs Psychiatric: A&O x 3 (Person, place, time, and situation, ) Skin: no rash, cap refill <2 seconds <Nick Rodriguez - Last Filed: 03/16/17 10:12> Dx/Plan (1) Acute on chronic systolic heart failure Code(s): I50.23 - ACUTE ON CHRONIC SYSTOLIC (CONGESTIVE) HEART FAILURE Status : Acute Plan: TTE showed EF 5-10% - EP consulted due to a-flutter at time of admission. awaiting recommendations. AICD in place. - (2) Acute respiratory failure with hypoxia Code(s): J96.01 - ACUTE RESPIRATORY FAILURE WITH HYPOXIA Status: Acute Plan: respiratory status improving. Off supplemental oxygen. - will provided oxygen PRN. (3) Physical deconditioning Code(s): R53.81 - OTHER MALAISE Status: Acute Plan: PT/OT consulted for eval and treatment - will consult case management for potential placement options and discharge planning. (4) Acute worsening of stage 3 chronic kidney disease Code(s): N18.3 - CHRONIC KIDNEY DISEASE, STAGE 3 (MODERATE) Status: Acute Plan: Cr. Trending down. Continue to monitor. (5) Hyperbilirubinemia Code(s): E80.6 - OTHER DISORDERS OF BILIRUBIN METABOLISM Status: Acute Plan: GI evaluated and has signed off. Will repeat tomorrow. <Nick Rodriguez - Last Filed: 03/16/17 10:12> Attending Addendum - Attending Addendum I personally evaluated the patient and discussed the management with Dr. Rodriguez. I agree with the History, Examination, Assessment and Plan documented above with any addition or exceptions noted below. <David Flor - Last Filed: 03/16/17 14:23>
[2017-03-16] MEDS: Atorvastatin Calcium 40 MG TAB PO SCH (20:24)
[2017-03-16] MEDS ORDERED: Furosemide 100 MG/10 ML VIAL SLOW IVP SCH (22:00)
[2017-03-17 04:55] LABS: PTT 40.7 SEC (22.9-36.1); Prothrombin Time 21.9 SEC (12.0-14.7)
[2017-03-17] MEDS: Amiodarone 200 MG TAB PO SCH ×2 (05:13→20:33)
[2017-03-17] MEDS: Carvedilol 6.25 MG TAB PO SCH ×2 (05:13→18:49)
[2017-03-17] MEDS: Furosemide 40 MG TAB PO SCH ×2 (05:13→15:38)
[2017-03-17 05:20] LABS: ALT (SGPT) 23 U/L (8-55); AST (SGOT) 33 U/L (5-34); Alkaline Phosphatase 107 U/L (40-150); Anion Gap 14 mmol/L (10-20); BUN (Urea Nitrogen) 32 mg/dL (8.4-25.7); Bilirubin, Direct 5.6 mg/dL (0.1-0.3); Bilirubin, Total 7.7 mg/dL (0.2-1.2); Calc. Creatinine Clearance 70 mL/min (70-130); Calcium 8.5 mg/dL (7.8-10.44); Carbon Dioxide 23 mmol/L (23-31); Chloride 103 mmol/L (98-107); Estimated GFR-MDRD 66; Protein, Total 6.5 g/dL (5.8-8.1)
[2017-03-17 05:32] LABS: Hematocrit 46.5 % (42.0-52.0); Mean Platelet Volume 8.1 fL (7.4-10.4); Red Blood Cell (RBC) Count 5.09 mill/uL (4.70-6.10); White Blood Cell (WBC) Count 5.6 thou/uL (4.8-10.8)
[2017-03-17 05:34] LABS: Neutrophil 86 % (42-75); Nucleated RBC 3 % (0); Target Cells SLIGHT = 2-5 cells (100X) (0-1/hpf)
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
--- NOTE | 2017-03-17 09:19 | PDOC.FM ---
- Subjective Subjective: CC: Ready to leave hospital HPI: Patient states he is eager to leave hospital for inpatient rehab but understands he needs some additional treatment. came and visited yesterday and is in agreement with rehab. Nurse reports rash in right groin and states EP is going to try to perform ablation today. - Objective MAR Reviewed: Yes Vital Signs & Weight: Vital Signs (12 hours) Temp Pulse Resp BP BP Pulse Ox 03/17/17 07:40 98.3 F 85 16 118/79 97 03/17/17 06:20 83 20 96 03/17/17 05:36 97 03/17/17 05:13 114/82 03/17/17 04:00 84 18 114/82 95 03/16/17 22:56 83 16 95 Weight Admit Weight 89.811 kg Weight 91.716 kg Most Recent Monitor Data Heart Rate from ECG 74 NIBP 86/61 NIBP BP-Mean 75 Respiration from ECG 24 SpO2 95 I&O: 03/16/17 03/17/17 03/18/17 06:59 06:59 06:59 Intake Total 1926 1800 Output Total 955 1775 Balance 971 25 Result Diagrams: 03/17/17 04:20 03/17/17 04:20 EKG Reviewed by me: Yes (atrial paced rate 80s. 11 beats V-tach yesterday morning ) <Nick Rodriguez - Last Filed: 03/17/17 09:17> - Objective Vital Signs & Weight: Vital Signs (12 hours) Temp Pulse Resp BP BP BP BP 03/17/17 11:54 97.5 F L 85 20 123/89 03/17/17 11:27 83 20 03/17/17 08:02 118/79 103/74 03/17/17 07:40 98.3 F 85 16 118/79 03/17/17 06:20 83 20 03/17/17 05:36 03/17/17 05:13 114/82 03/17/17 04:00 84 18 114/82 Pulse Ox 03/17/17 11:54 100 03/17/17 11:27 95 03/17/17 08:02 03/17/17 07:40 97 03/17/17 06:20 96 03/17/17 05:36 97 03/17/17 05:13 03/17/17 04:00 95 Weight Admit Weight 89.811 kg Weight 91.716 kg Most Recent Monitor Data Heart Rate from ECG 74 NIBP 86/61 NIBP BP-Mean 75 Respiration from ECG 24 SpO2 95 I&O: 03/16/17 03/17/17 03/18/17 06:59 06:59 06:59 Intake Total 1926 1800 Output Total 955 1775 Balance 971 25 Result Diagrams: 03/17/17 04:20 03/17/17 04:20 <David Flor - Last Filed: 03/17/17 13:49> Phys Exam - Physical Examination Constitutional: NAD HEENT: moist MMs, sclera anicteric Respiratory: no wheezing, clear to auscultation bilateral Cardiovascular: RRR, no significant murmur Musculoskeletal: pulses present, edema present (trace) Neurological: non-focal, moves all 4 limbs Psychiatric: normal affect, A&O x 3 Deviation from normal: excoriation in right groin crease <Nick Rodriguez - Last Filed: 03/17/17 09:17> Dx/Plan (1) Acute on chronic systolic heart failure Code(s): I50.23 - ACUTE ON CHRONIC SYSTOLIC (CONGESTIVE) HEART FAILURE Status : Acute Plan: TTE showed EF 5-10% - EP planning for ablation this afternoon or tomorrow. (2) Acute respiratory failure with hypoxia Code(s): J96.01 - ACUTE RESPIRATORY FAILURE WITH HYPOXIA Status: Acute Plan: respiratory status improving. Off supplemental oxygen. - will provided oxygen PRN. (3) Physical deconditioning Code(s): R53.81 - OTHER MALAISE Status: Acute Plan: PT/OT consulted for eval and treatment - case management awaiting PT/OT recs for submission to centers. (4) Acute worsening of stage 3 chronic kidney disease Code(s): N18.3 - CHRONIC KIDNEY DISEASE, STAGE 3 (MODERATE) Status: Acute Plan: Cr. Trending down. Continue to monitor. (5) Hyperbilirubinemia Code(s): E80.6 - OTHER DISORDERS OF BILIRUBIN METABOLISM Status: Acute Plan: GI evaluated and has signed off. remains elevated - will call Dr. Reyes to see if any additional evaluation needs to be performed. <Nick Rodriguez - Last Filed: 12/05/17 09:17> Attending Addendum - Attending Addendum I personally evaluated the patient and discussed the management with Dr. Rodriguez. I agree with the History, Examination, Assessment and Plan documented above with any addition or exceptions noted below. awaiting electro-electro mechanic luz. Examined large scab on right side of face Estefanía sebceous cyst underneath. Can have excision outpt. <David Flor - Last Filed: 03/17/17 13:49>
[2017-03-17] MEDS: Amoxicillin/Potassium Clav 875 MG TAB PO SCH ×2 (10:16→20:32)
[2017-03-17] MEDS: Multivit, Therapeutic 1 TAB PO SCH (10:16)
[2017-03-17] MEDS ORDERED: Heparin 1000 UNIT/NS 500ML(OR) 500 ML ONE (16:30)
[2017-03-17] MEDS ORDERED: Heparin 10,000 UNITS/1 ML VIAL ONE (16:30)
[2017-03-17] MEDS ORDERED: Fentanyl 100 MCG/2 ML VIAL ONE (16:37)
[2017-03-17] MEDS ORDERED: Ketamine 50 MG/ML VIAL ONE (16:37)
[2017-03-17] MEDS ORDERED: Midazolam HCl 2 mg/2 ml Vial ONE (16:37)
[2017-03-17] MEDS ORDERED: Propofol 500 MG/50 ML VIAL ONE (16:37)
[2017-03-17] MEDS ORDERED: DOPamine 400 MG/D5W 250 ML 250 ML ONE (17:29)
[2017-03-17] MEDS ORDERED: Acetaminophen 325 MG TAB PO PRN (19:12)
[2017-03-17] MEDS ORDERED: traMADol HCl 50 MG TAB PO PRN (19:12)
[2017-03-17] MEDS ORDERED: Nitroglycerin 0.4 MG TAB (25 Tab Bottle) SL PRN (19:12)
[2017-03-17] MEDS ORDERED: Mag-Al 1200 mg/1200 mg/30 ML UDCUP PO PRN (19:12)
[2017-03-17] MEDS ORDERED: Bisacodyl 10 MG SUPP PR PRN (19:12)
[2017-03-17] MEDS ORDERED: diphenhydrAMINE 25 MG CAP PO PRN (19:12)
[2017-03-17] MEDS ORDERED: Ondansetron HCl/PF 4 MG/2 ML Vial IVP PRN (19:12)
[2017-03-17] MEDS ORDERED: Bisacodyl 5 MG TAB PO PRN (19:12)
[2017-03-17] MEDS ORDERED: Temazepam 15 MG CAP PO PRN (19:12)
[2017-03-17] MEDS: Atorvastatin Calcium 40 MG TAB PO SCH (20:33)
[2017-03-18 06:23] LABS: PTT 39.7 SEC (22.9-36.1); Prothrombin Time 20.9 SEC (12.0-14.7)
[2017-03-18 06:27] LABS: Anion Gap 13 mmol/L (10-20); BUN (Urea Nitrogen) 27 mg/dL (8.4-25.7); Calc. Creatinine Clearance 72 mL/min (70-130); Calcium 8.7 mg/dL (7.8-10.44); Carbon Dioxide 21 mmol/L (23-31); Chloride 105 mmol/L (98-107); Estimated GFR-MDRD 68
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
[2017-03-18 07:35] LABS: Hematocrit 51.8 % (42.0-52.0); Mean Platelet Volume 8.5 fL (7.4-10.4); Neutrophil 87 % (42-75); Ovalocytes SLIGHT = 2-5 cells (100X) (0-1/hpf); Poikilocytosis SLIGHT = 6-15 cells (100X) (0-5/hpf); Red Blood Cell (RBC) Count 5.54 mill/uL (4.70-6.10); Tear Drops SLIGHT = 2-5 cells (100X) (0-1/hpf)
[2017-03-18] MEDS: Amoxicillin/Potassium Clav 875 MG TAB PO SCH ×2 (09:09→21:11)
[2017-03-18] MEDS: Amiodarone 200 MG TAB PO SCH (09:09)
[2017-03-18] MEDS: Carvedilol 6.25 MG TAB PO SCH ×2 (09:09→16:48)
[2017-03-18] MEDS: Multivit, Therapeutic 1 TAB PO SCH (09:10)
[2017-03-18] MEDS: Lisinopril 10 MG TAB PO SCH (09:10)
[2017-03-18] MEDS: Furosemide 40 MG TAB PO SCH (09:10)
[2017-03-18] MEDS: Torsemide 100 MG TAB PO SCH (09:11)
[2017-03-18] MEDS ORDERED: Apixaban 5 MG TAB PO SCH ×3 (10:17→21:00)
--- NOTE | 2017-03-18 10:21 | PDOC.FM ---
- Subjective Subjective: CC: Ready to go home HPI: States he has been walking to bathroom since littlejohn removed. No concerns. Denies chest pain. Tolerated EP procedure well. - Objective MAR Reviewed: Yes Vital Signs & Weight: Vital Signs (12 hours) Temp Pulse Resp BP BP Pulse Ox 03/18/17 09:10 131/94 H 03/18/17 09:09 114/82 03/18/17 08:50 92 20 98 03/18/17 08:00 97.9 F 97 17 131/94 H 91 L 03/18/17 04:00 98.1 F 100 22 H 121/85 100 03/18/17 02:40 97 03/18/17 01:36 99 20 97 Weight Admit Weight 89.811 kg Weight 91.354 kg Most Recent Monitor Data Heart Rate from ECG 74 NIBP 86/61 NIBP BP-Mean 75 Respiration from ECG 24 SpO2 95 I&O: 03/17/17 03/18/17 03/19/17 06:59 06:59 06:59 Intake Total 1800 500 Output Total 1775 1875 Balance 25 -1375 Result Diagrams: 03/18/17 05:51 03/18/17 05:51 EKG Reviewed by me: Yes (atrial paced. rate 90s ) Phys Exam - Physical Examination Constitutional: NAD HEENT: moist MMs Neck: no nodes, supple Respiratory: no wheezing, no rales, no rhonchi, clear to auscultation bilateral Cardiovascular: RRR, no significant murmur Musculoskeletal: pulses present, edema present (trace) Neurological: non-focal, moves all 4 limbs Psychiatric: normal affect, A&O x 3 Dx/Plan (1) Acute on chronic systolic heart failure Code(s): I50.23 - ACUTE ON CHRONIC SYSTOLIC (CONGESTIVE) HEART FAILURE Status : Acute Plan: TTE showed EF 5-10%. Ablation yesterday. EP recommends no amiodarone, anticoagulation for 1 month, and continued management of heart failure - d/c pending placement. Patient states he is still not sure if he wants to go to inpatient rehab. Explained importance of PT to preventing future complications and falls. (2) Physical deconditioning Code(s): R53.81 - OTHER MALAISE Status: Acute Plan: PT/OT consulted for eval and treatment - awaiting placement. Discussed importance with patient. will follow up later today. (3) Acute worsening of stage 3 chronic kidney disease Code(s): N18.3 - CHRONIC KIDNEY DISEASE, STAGE 3 (MODERATE) Status: Acute Plan: Cr. Trending down. Continue to monitor. (4) Hyperbilirubinemia Code(s): E80.6 - OTHER DISORDERS OF BILIRUBIN METABOLISM Status: Acute Plan: GI evaluated and has signed off. follow up outpatient. (5) Acute respiratory failure with hypoxia Code(s): J96.01 - ACUTE RESPIRATORY FAILURE WITH HYPOXIA Status: Resolved Plan: respiratory status improving. - will provided oxygen PRN.
--- NOTE | 2017-03-18 12:16 | PRG ---
DATE OF SERVICE: 03/18/2017 SUBJECTIVE: Mr. Rivero is doing better today. He says he is not having shortness of breath. PHYSICAL EXAMINATION: VITAL SIGNS: Blood pressure 131/94, pulse 90. NECK: Veins are down. LUNGS: Clear. CARDIAC: Normal S1, S2. ASSESSMENT: 1. Status post atrial flutter ablation. 2. History of congestive heart failure, clinically has improved. PLAN: 1. He is on carvedilol. 2. Torsemide. 3. Amiodarone was stopped. 4. Eliquis for at least a month. 5. He is on daily potassium. 6. He is on lisinopril.
[2017-03-18 12:29] VITALS: BMI 26.6
[2017-03-18] MEDS ORDERED: Cepastat Lozenges 1 LOZ PO PRN (15:18)
--- NOTE | 2017-03-18 19:46 | PRG ---
DATE OF SERVICE: 03/18/2017 ELECTROPHYSIOLOGY FOLLOWUP NOTE SUBJECTIVE: Mr. Rivero is doing well one day after his ablation procedure. OBJECTIVE: VITAL SIGNS: Blood pressure is 117/78, heart rate 91, respirations 20, temperature 97.6 degrees Fahrenheit. GENERAL: He is alert and oriented man in no apparent distress. NECK: Supple. Jugular vein is not distended. CHEST: Coarse without crackles. CARDIOVASCULAR: Heart sounds are regular rate and rhythm. No murmur or gallop. ABDOMEN: Benign. Bowel sounds positive. EXTREMITIES: Lower extremity edema are without edema, clubbing, or cyanosis. Left precordial ICD insertion site is well healed. DATA BASE: Telemetry strips reviewed reveals sinus rhythm. The atrial pacing at 100 beats per minute noted. White count 7.0, hemoglobin 15.5, platelet count 87,000. INR is 1.8. Sodium 135, potassium 3.7, BUN is 27, creatinine 1.27. ASSESSMENT AND PLAN: Mr. Rivero is a 66-year-old male with history of congestive heart failure, nonischemic cardiomyopathy, history of ventricular arrhythmias and atrial arrhythmia as well. He has been with chest pain and atrial flutter ever since the ICD implant in the summer. He underwent ablation yesterday in sinus rhythm. He could be considered with continued anticoagulation, although somewhat increased risk for bleeding due to his chronically reduced platelet count. At this point, hence the improved platelet count we will not hold the Eliquis but consider if furtherbleeding issues are seen. Also, we will try to stop the amiodarone and monitor for recurrence of atrial fibrillation. FRANCIS
[2017-03-18] MEDS: Atorvastatin Calcium 40 MG TAB PO SCH (21:11)
[2017-03-19 06:08] LABS: PTT 42.3 SEC (22.9-36.1); Prothrombin Time 25.2 SEC (12.0-14.7)
[2017-03-19 06:19] LABS: Anion Gap 12 mmol/L (10-20); BUN (Urea Nitrogen) 25 mg/dL (8.4-25.7); Calc. Creatinine Clearance 77 mL/min (70-130); Calcium 8.5 mg/dL (7.8-10.44); Carbon Dioxide 22 mmol/L (23-31); Chloride 103 mmol/L (98-107); Estimated GFR-MDRD 74
[2017-03-19 06:21] LABS: Hematocrit 46.9 % (42.0-52.0); Mean Platelet Volume 10.3 fL (7.4-10.4); Red Blood Cell (RBC) Count 5.11 mill/uL (4.70-6.10); Target Cells SLIGHT = 2-5 cells (100X) (0-1/hpf); White Blood Cell (WBC) Count 6.2 thou/uL (4.8-10.8)
[2017-03-19 06:56] LABS: Band 3 % (5-11); Neutrophil 70 % (42-75)
--- NOTE | 2017-03-19 08:51 | PDOC.FM ---
- Subjective Subjective: CC: tired HPI: Patient and patient's spouse present at time of exam. Spouse states he had difficulty sleeping last night but is resting now. State CM is working with them for placement in [place]. is very agreeable to SNF for PT. Patient still agrees to placement. - Objective Vital Signs & Weight: Vital Signs (12 hours) Temp Pulse Resp BP Pulse Ox 03/19/17 04:00 97.4 F L 79 14 113/75 92 L Weight Admit Weight 89.811 kg Weight 92.714 kg Most Recent Monitor Data Heart Rate from ECG 74 NIBP 86/61 NIBP BP-Mean 75 Respiration from ECG 24 SpO2 95 I&O: 03/18/17 03/19/17 03/20/17 06:59 06:59 06:59 Intake Total 500 240 Output Total 4028 416 Accellos -1375 -602 Result Diagrams: 03/19/17 05:32 03/19/17 05:32 <Nick Rodriguez W - Last Filed: 03/19/17 10:18> - Objective Vital Signs & Weight: Vital Signs (12 hours) Temp Pulse Resp BP BP Pulse Ox 03/19/17 11:41 127/91 H 03/19/17 11:36 127/91 H 03/19/17 04:00 97.4 F L 79 14 113/75 92 L Weight Admit Weight 89.811 kg Weight 92.714 kg Most Recent Monitor Data Heart Rate from ECG 74 NIBP 86/61 NIBP BP-Mean 75 Respiration from ECG 24 SpO2 95 I&O: 03/18/17 03/19/17 03/20/17 06:59 06:59 06:59 Intake Total 500 240 Output Total 9605 491 Accellos -1375 -305 Result Diagrams: 03/19/17 05:32 03/19/17 05:32 <David Flor - Last Filed: 03/19/17 13:01> Phys Exam - Physical Examination Constitutional: NAD HEENT: moist MMs Respiratory: no wheezing, clear to auscultation bilateral Gastrointestinal: soft, no distention Neurological: non-focal, moves all 4 limbs Psychiatric: A&O x 3 Skin: normal turgor, cap refill <2 seconds <Nick Rodriguez W - Last Filed: 03/19/17 10:18> Dx/Plan (1) Acute on chronic systolic heart failure Code(s): I50.23 - ACUTE ON CHRONIC SYSTOLIC (CONGESTIVE) HEART FAILURE Status : Acute Plan: TTE showed EF 5-10%. Ablation yesterday. EP recommends no amiodarone and continued management of heart failure - d/c pending placement. - discussed anticoagulation with EP and Cards. Given thrombocytopenia and Hx of subdural bleeds no anticoagulation at this time. (2) Physical deconditioning Code(s): R53.81 - OTHER MALAISE Status: Acute Plan: PT/OT consulted for eval and treatment - awaiting placement. Discussed importance with patient. will follow up later today. (3) Acute worsening of stage 3 chronic kidney disease Code(s): N18.3 - CHRONIC KIDNEY DISEASE, STAGE 3 (MODERATE) Status: Acute Plan: Cr. Trending down. Continue to monitor. Sodium has trended down over past 2 days. - repeat tomorrow if not placed. If placed, repeat BMP 1 week. (4) Hyperbilirubinemia Code(s): E80.6 - OTHER DISORDERS OF BILIRUBIN METABOLISM Status: Acute Plan: GI evaluated and has signed off. follow up outpatient. (5) Acute respiratory failure with hypoxia Code(s): J96.01 - ACUTE RESPIRATORY FAILURE WITH HYPOXIA Status: Resolved Plan: respiratory status improving. - will provided oxygen PRN. <Nick Rodriguez - Last Filed: 03/19/17 10:18> Attending Addendum - Attending Addendum I personally evaluated the patient and discussed the management with Dr. Rodriguez. I agree with the History, Examination, Assessment and Plan documented above with any addition or exceptions noted below. Discharge planning. <David Flor - Last Filed: 03/19/17 13:01>
[2017-03-19] MEDS: Carvedilol 6.25 MG TAB PO SCH ×2 (11:36→17:35)
[2017-03-19] MEDS: Multivit, Therapeutic 1 TAB PO SCH (11:41)
[2017-03-19] MEDS: Lisinopril 10 MG TAB PO SCH (11:41)
[2017-03-19] MEDS: Amoxicillin/Potassium Clav 875 MG TAB PO SCH (11:41)
[2017-03-19] MEDS: Torsemide 100 MG TAB PO SCH (12:00)
[2017-03-19 16:49] VITALS: TEMP 97.6
[2017-03-19 17:35] VITALS: BP 127/91
--- NOTE | 2017-03-19 19:44 | DIS-2 ---
DATE OF ADMISSION: 03/13/2017 DATE OF DISCHARGE: 03/19/2017 ADMITTING ATTENDING: Brina Franklin M.D. DISCHARGE ATTENDING: David Flor M.D. RESIDENT: Nick Rodriguez M.D. PRIMARY CARE PHYSICIAN: David Flor M.D. CONSULTATIONS: 1. Dr. Shelby Ackerman, Cardiology. 2. Dr. Joshua Perdomo, Electrophysiology. 3. Dr. Phil Reyes, Gastroenterology. 4. Dr. Garett Stover, Pulmonology/Critical Care. 5. Dr. Dhruv Gee, Cardiology. PERTINENT LABORATORY FINDINGS: Platelets at time of admission 103, trended down to 76 and were 82 at time of discharge. CK-MB at time of admission 8.0, troponin at time of admission 0.089 and trended down to 0.084. Creatinine at time of admission 2.02 trended down to 1.19. Negative urine drug scree n, negative HIV and syphilis, moderate leukocyte esterase on urinalysis with 21-50 white blood cells. PRIMARY DIAGNOSES: 1. Acute hypoxic respiratory failure secondary to atrial flutter versus atrial fibrillation. 2. Acute chronic injury on chronic kidney disease stage 3. 3. Hyperbilirubinemia. 4. Acute exacerbation of heart failure with reduced ejection fraction. SECONDARY DIAGNOSES: 1. Physical deconditioning. 2. Gout. 3. Hypertension. 4. Hyperlipidemia. 5. History of recurrent subdural hematomas. DISCHARGE MEDICATIONS: 1. Albuterol sulfate 90 mcg inhaled q.6 hours p.r.n. 2. Augmentin 875 mg q.12 hours to be taken until 03/23/2017. 3. Lipitor 40 mg at bedtime. 4. Benzocaine/menthol throat lozenge one lozenge q. 2 hours p.r.n. 5. Dulcolax 10 mg daily p.r.n. constipation. 6. Carvedilol 6.25 mg b.i.d. 7. Albuterol DuoNeb 3 mL nebulized q.i.d. p.r.n. 8. Lisinopril 10 mg daily. 9. Potassium chloride 10 mEq daily. 10. Torsemide 50 mg daily. 11. Vitamin E 400 units daily. 12. Zantac 150 mg daily. DISCONTINUED MEDICATIONS: None. HISTORY OF PRESENT ILLNESS AND HOSPITAL COURSE: Mr. Rivero is a pleasant 66-year-old -[place] male who presented as a transfer from outside ER and was intubated at time of arrival. There was in itially concern for syncopal episode per family, but the history was unclear. There was concern for infection at the time of admission and he was started on broad spectrum antibiotics of vancomycin and Zosyn. Urine was consistent with acute urinary tract infection. He remained mechanically ventilate d until 03/14/2017. He was found to be in atrial flutter at the time of admission. Prompted consultation with Cardiology and subsequently Electrophysiology. He underwent ablation on 03/17/2017. At the time of admission, he was found to have elevated creatinine, which trended down with fluids. An echocardiogram performed on 03/13/2017 showed ejection fraction of 5%-10%. Patient already has an AICD and pacemaker in place. I talked about the antibiotics and so antibiotic coverage was deescalated on 03/15/2017, Augmentin to treat the presumed urinary tract infection. Additionally, at time of admission, the patient was found to have elevated direct and indirect biliru bin. Dr. Phil Reyes from Gastroenterology was consulted for further recommendations. Dr. Reyes felt that this was an isolated event, likely related to the cardiomyopathy and hepatic congestion. He did not recommend any additional evaluation at that time. The patient's overall mental status and orientation improved throughout his hospital stay. He went f rom A and O to person at the time of extubation to A and O x4 by the day of discharge. Initially, th e patient was to be placed on Eliquis for anticoagulation due to the ablation he received during this hospitalization. However, given his history of falls and recurrent subdural hematomas, Cardiology a nd Electrophysiology decided against anticoagulation at this time. Given his state of physical decon ditioning, case management was consulted for placement. He was successfully placed at [facility]. Arrangements have been made for discharge. Vital signs at time of discharge were s table. DISPOSITION: The patient is currently being discharged in stable condition. However, his long-term prognosis is guarded given his severe heart failure. DISCHARGE INSTRUCTIONS: 1. Location: [facility]. 2. Activity: Physical therapy and occupational therapy to be performed at [facility]. 3. Diet: Heart healthy, low sodium, fluid restricted 2000 mL a day. FOLLOWUP: The patient is to call and follow up with Dr. Phil Reyes of Gastroenterology, Dr. Joshua clarke of Electrophysiology. He is to follow up with Dr. Shelby Ackerman in 2-3 weeks. He was also advis ed to [facility] and [facility]. He was also set up with the [facility] pr ior to discharge. Approximately 35 minutes were spent on this discharge preparing discharge materials, coordinating pat ient transportation and providing patient and family education.
--- NOTE | 2017-03-19 21:08 | PRG ---
DATE OF SERVICE: 03/19/2017. SUBJECTIVE: Mr. Rivero seems to be doing well 2 days after his ablation procedure. He is recovering, continue wound care. OBJECTIVE: VITAL SIGNS: Blood pressure is 127/91, heart rate 79, respirations 14, temperature 97.4 degrees Fahr enheit. GENERAL: He is alert and oriented man in no apparent distress. NECK: Supple. Jugular veins not distention. CHEST: Coarse, no crackles. Left precordial ICD insertion site is well healed. ABDOMEN: Benign. Bowel sounds positive. EXTREMITIES: Lower extremities without edema, clubbing or cyanosis. DATABASE: EKG reveals sinus rhythm, no atrial arrhythmias, ventricular pacing is noted. LABORATORY DATA: Reveals white count 6.2, hemoglobin 7.6, platelet count is 82. Sodium 132, potassi um 3.7, BUN is 25, creatinine 1.19. ASSESSMENT AND PLAN: Mr. Rivero is a pleasant 66-year-old man with history of nonischemic cardiomyopa thy, dual chamber ICD implantation with resultant atrial flutter, which eventually is terminated this admission and he underwent a cavotricuspid isthmus ablation. He is doing well now. He was placed b ack on Eliquis. Monitor his borderline platelet counts. Routine followup is requested in 6-8 weeks.
--- NOTE | 2017-04-14 13:59 | EKG ---
Test Reason : TACHYCARDIA Blood Pressure : / mmHG Vent. Rate : 107 BPM Atrial Rate : 107 BPM P-R Int : 220 ms QRS Dur : 090 ms QT Int : 336 ms P-R-T Axes : 101 -04 109 degrees QTc Int : 448 ms Sinus tachycardia with 1st degree A-V block with Fusion complexes Low voltage QRS Cannot rule out Anteroseptal infarct , age undetermined Abnormal ECG #2 No change Confirmed by JAILYN MOSS DO ([id number]), editorial manager RAYMON KERN ([id number]) on 04/14/2017 1:59:04 PM Referred By: CASSANDRA MOSS Confirmed By:JAILYN MOSS DO
--- NOTE | 2017-04-14 13:59 | EKG ---
Test Reason : INTUBATED Blood Pressure : / mmHG Vent. Rate : 105 BPM Atrial Rate : 105 BPM P-R Int : 200 ms QRS Dur : 098 ms QT Int : 384 ms P-R-T Axes : 094 -32 203 degrees QTc Int : 507 ms Sinus tachycardia with occasional Premature ventricular complexes Left axis deviation Abnormal ECG Confirmed by JAILYN MOSS DO ([id number]), purchase request editor RAYMON KERN ([id number]) on 04/14/2017 1:58:18 PM Referred By: ISA Confirmed By:JAILYN MOSS DO
== END 2017-03-19 17:50 | disposition swing bed (61) | DRG 273 ==
LOC: ERS 03:01 → CCU 03:27 → 2SW 03-15 21:47 → 2NO 03-17 18:33
PROVIDERS: ADMIT Student in an Organized Health Care Education/Training Program; ATTEND Student in an Organized Health Care Education/Training Program
PROC: 5A1945Z Respiratory Ventilation, 24-96 Consecutive Hours (ICD-10-PCS; principal; 2017-03-13)
PROC: 02583ZZ Destruction of Conduction Mechanism, Percutaneous Approach (ICD-10-PCS; 2017-03-17)
PROC: 4A023FZ Measurement of Cardiac Rhythm, Percutaneous Approach (ICD-10-PCS; 2017-03-17)
PROC: 4A0234Z Measurement of Cardiac Electrical Activity, Percutaneous Approach (ICD-10-PCS; 2017-03-17)
PROC: 02K83ZZ Map Conduction Mechanism, Percutaneous Approach (ICD-10-PCS; 2017-03-17)
PROC: 025J3ZZ Destruction of Tricuspid Valve, Percutaneous Approach (ICD-10-PCS; 2017-03-17)
DX: I48.3 Typical atrial flutter (principal); J96.01 Acute respiratory failure with hypoxia; I50.23 Acute on chronic systolic (congestive) heart failure; G93.40 Encephalopathy, unspecified; N17.9 Acute kidney failure, unspecified; E87.2 Acidosis; D69.6 Thrombocytopenia, unspecified; N18.3 Chronic kidney disease, stage 3 (moderate); I42.9 Cardiomyopathy, unspecified; I13.0 Hypertensive heart and chronic kidney disease with heart failure and stage 1 through stage 4 chronic kidney disease, or unspecified chronic kidney disease; N39.0 Urinary tract infection, site not specified; L03.116 Cellulitis of left lower limb; L03.115 Cellulitis of right lower limb; K76.1 Chronic passive congestion of liver; E78.5 Hyperlipidemia, unspecified; Z91.81 History of falling; Z95.810 Presence of automatic (implantable) cardiac defibrillator; G47.30 Sleep apnea, unspecified; J44.9 Chronic obstructive pulmonary disease, unspecified; E80.6 Other disorders of bilirubin metabolism; I83.009 Varicose veins of unspecified lower extremity with ulcer of unspecified site; R53.81 Other malaise; I48.0 Paroxysmal atrial fibrillation; M10.9 Gout, unspecified
CPT/HCPCS: 36415; 51702; 71010; 76705; 76856; 76942; 80048; 80053; 80061; 80076; 80162; 80202; 80306; 80307; 81003; 81015; 82140; 82247; 82248; 82271; 82533; 82553; 82805; 83605; 83880; 84443; 84484; 85007; 85025; 85027; 85610; 85730; 86780; 87040; 87086; 87389; 93005; 93010; 93306; 93613; 93623; 93653; 94002; 94003; 94640; 96365; 96366; 96375; 99292; A4216; C1730; C1769; C9113; G8978-GP-CK; G8979-GP-CI; G8987-GO-CK; G8988-GO-CI; J0282; J1265; J1644; J1940; J2250; J2543; J2704; J3010; J3370; J7050; J7070; J7620; S0028

== ENCOUNTER 2017-04-22 13:26 | Inpatient (IN) | payer MEDICARE, SELFPAY ==
[2017-04-22] MEDS ORDERED: EPINEPHrine 1 MG/10 ML Abboject SYRINGE ONE (13:43)
[2017-04-22 14:27] LABS: Bilirubin Large (Negative); Blood, Urine Small (Negative); Clarity CLOUDY (Clear); Glucose, Urine (Dipstick) Negative (Negative); Leukocyte Small (Negative); Nitrite Negative (Negative); Protein, Urine (Dipstick) 30 mg/dL (Neg-Trace); Specific Gravity, Urine 1.019 (1.002-1.036); pH, Urine 5.5 (5.0-9.0)
[2017-04-22 14:29] LABS: Bacteria/HPF None Seen HPF (None Seen); Squamous Epithelial 0-3 HPF (0-3)
[2017-04-22 14:30] LABS: Pathc Cast-AUWi Flag 8.26 (0-2.49); Yeast-AUWi Flag 40.2 (0-25.0)
[2017-04-22 14:36] LABS: Actual Bicarbonate (HCO3a) 17.8 mEq/L (22-26); Base Excess (BEa) -6.1 mEq/L (0 (+/-) 2.5); CO2 Tension 30.3 mmHg (35.0-45.0); Calcium, Ionized 1.2 mmol/L (1.12-1.30); Hematocrit-ABG 38.6 % (42.0-52.0); Hemoglobin (Hb) 11.7 g/dL (14.0-18.0); O2 Tension (PaO2) 141.8 mmHg (80.0-100.0); pH, Arterial 7.39 (7.35-7.45)
[2017-04-22 14:37] LABS: ALV-art Gradient 243.925 (0-20); Analyzer IN Cardio ER; Puncture Site L.R.
[2017-04-22 14:45] LABS: Crystals/HPF 1+ AMORPH URATES HPF (Negative); Yeast-All Forms None Seen HPF (None Seen)
[2017-04-22] MEDS ORDERED: Pantoprazole 80 MG, Admixture Fee 1 EACH in Sodium Chloride 0.9% 100 ML IVP SCH (15:00)
--- NOTE | 2017-04-22 15:01 | RAD ---
CHEST ONE VIEW: History: Chest pain. Comparison: 03-15-17 FINDINGS: Cardiac silhouette is magnified and enlarged. Pulmonary vasculature is more engorged than on the prev ious exam. Mediastinum is midline with a dual-lead left subclavian cardiac electronic device. No loba r consolidation or pleural fluid are apparent. There are mild patchy bilateral infiltrates. IMPRESSION: Interval increase in edema associated with CHF. POS: [facility]
[2017-04-22 15:06] LABS: #Basophils 0.1 thou/uL (0.0-0.2); #Lymphocytes 0.7 thou/uL (1.20-3.40); #Monocytes 0.8 thou/uL (0.11-0.59); #Neutrophils 10.5 thou/uL (1.40-6.50); %Basophils 1.2 % (0.0-1.0); %Eosinophils 0.1 % (0.0-10.0); %Lymphocytes 5.4 % (21.0-51.0); %Monocytes 6.2 % (0.0-10.0); %Neutrophils 87.1 % (42.0-75.0); Hemoglobin 12.8 g/dL (14.0-18.0); Mean Corpuscular HGB CONC 30.7 g/dL (32.0-36.0); Mean Corpuscular Hemoglobin 29.4 pg (27.0-31.0); Mean Corpuscular Volume 95.7 fl (80.0-94.0); Platelet Count 113 thou/uL (130-400); RBC Distribution Width 20.2 % (11.5-14.5); Red Blood Cell (RBC) Count 4.36 mill/uL (4.70-6.10); White Blood Cell (WBC) Count 12.1 thou/uL (4.8-10.8)
[2017-04-22] MEDS ORDERED: Succinylcholine Chloride 20 MG/ML 10 ml SYRINGE FS ONE (15:07)
[2017-04-22 15:08] LABS: INR-International Normal Ratio 3.1; PTT 39.3 SEC (22.9-36.1); Prothrombin Time 33.4 SEC (12.0-14.7)
[2017-04-22 15:24] LABS: Anisocytosis SLIGHT = 6-15 cells (100X) (0-5/hpf); Burr Cells SLIGHT = 2-5 cells (100X) (0-1/hpf); MDiff Complete? YES; PLT Morphology Comment Appears Decreased; Polychromasia SLIGHT = 2-3 cells (100X) (0-2/hpf); Schistocytes SLIGHT = 2-5 cells (100X) (0-1/hpf); Target Cells SLIGHT = 2-5 cells (100X) (0-1/hpf); Tear Drops SLIGHT = 2-5 cells (100X) (0-1/hpf)
[2017-04-22 15:26] LABS: ALT (SGPT) 34 U/L (8-55); AST (SGOT) 58 U/L (5-34); Albumin 2.6 g/dL (3.4-4.8); Alkaline Phosphatase 148 U/L (40-150); Anion Gap 26 mmol/L (10-20); BUN (Urea Nitrogen) 83 mg/dL (8.4-25.7); Bilirubin, Total 12.3 mg/dL (0.2-1.2); CK (CPK) 258 U/L (30-200); Calc. Creatinine Clearance 0 mL/min (70-130); Calcium 9.6 mg/dL (7.8-10.44); Carbon Dioxide 16 mmol/L (23-31); Chloride 101 mmol/L (98-107); Estimated GFR-MDRD 28; Globulin 4.3 g/dL (2.4-3.5); Glucose 80 mg/dL (80-115); Iron 32 ug/dL (65-175); Iron Binding Capacity, Total 195 mcg/dL (261-462); Lipase 33 U/L (8-78); Protein, Total 6.9 g/dL (5.8-8.1); Sodium 138 mmol/L (136-145)
[2017-04-22] MEDS ORDERED: Propofol 1,000 MG/100 ML VIAL IV ONE (15:26)
[2017-04-22 15:32] LABS: CKMB 13.2 ng/mL (0-6.6); Troponin I 0.325 ng/mL (< 0.028)
[2017-04-22] MEDS ORDERED: Octreotide Acetate 1,250 MCG in Sodium Chloride 0.9% 250 ML 250 ML IVPB SCH ×2 (15:45→19:00)
[2017-04-22] MEDS ORDERED: fentaNYL Citrate/PF 2,000 MCG in Sodium Chloride 0.9% 60 ML IV SCH ×2 (16:00→17:48)
[2017-04-22] MEDS ORDERED: Octreotide Acetate 100 MCG/ML VIAL ONE (16:02)
[2017-04-22] MEDS ORDERED: cefTRIAXone\\ROCEPHIN 2 GM in Sodium Chloride 0.9% 100 ML IVPB ONE (16:15)
[2017-04-22] MEDS ORDERED: Fentanyl 100 MCG/2 ML VIAL ONE (16:25)
[2017-04-22 16:34] LABS: Actual Bicarbonate (HCO3a) 20.4 mEq/L (22-26); Analyzer IN Cardio ER; Base Excess (BEa) -4.4 mEq/L (0 (+/-) 2.5); CO2 Tension 36.5 mmHg (35.0-45.0); Calcium, Ionized 1.2 mmol/L (1.12-1.30); Hematocrit-ABG 38.5 % (42.0-52.0); Hemoglobin (Hb) 11.7 g/dL (14.0-18.0); O2 Tension (PaO2) 144.8 mmHg (80.0-100.0); pH, Arterial 7.37 (7.35-7.45)
[2017-04-22 16:35] LABS: ALV-art Gradient 161.575 (0-20); Puncture Site L.B.
[2017-04-22] MEDS ORDERED: Pantoprazole 40 MG VIAL ONE (16:35)
--- NOTE | 2017-04-22 16:35 | RAD ---
CHEST 1 VIEW: Date: 04/22/17 HISTORY: Chest pain. COMPARISON: Earlier exam on same date. FINDINGS: Cardiac silhouette remains magnified and enlarged. Pulmonary vasculature remains engorged with patchy areas of parenchymal infiltrate throughout each lung. Mediastinum is midline. Tip of an endotracheal catheter overlies the thoracic inlet. Nasogastric tube now descends to the abdomen. IMPRESSION: Endotracheal catheter and nasogastric tube are in good radiographic position. Other findings are stab le. POS: [facility]
[2017-04-22] MEDS ORDERED: Sedation Protocol FS ONE (17:42)
[2017-04-22] MEDS ORDERED: CCU Electrolyte Replacement 1 EACH FS ONE (17:42)
[2017-04-22] MEDS ORDERED: Lorazepam 2 MG/ML VIAL SLOW IVP PRN (17:48)
[2017-04-22] MEDS ORDERED: Magnesium 2 GM/NS 0.9% 100 ML 2 GM in Premix Bag 1 BAG IVPB PRN (17:48)
[2017-04-22] MEDS ORDERED: Potassium Chloride 20 MEQ TAB PO PRN (17:48)
[2017-04-22] MEDS ORDERED: Morphine 2 MG/ML SYRINGE SLOW IVP PRN (17:48)
[2017-04-22] MEDS ORDERED: Potassium Phosphate 9 MMOL in Sodium Chloride 0.9% 100 ML IVPB PRN (17:48)
[2017-04-22] MEDS ORDERED: Potassium Chloride 40 MEQ in Premix Bag 1 BAG IVPB PRN (17:48)
[2017-04-22] MEDS ORDERED: DISCONTINUE PREVIOUS NARCOTIC PAIN MEDICATIONS AND BENZODIAZEPINES FS SCH (17:48)
[2017-04-22] MEDS ORDERED: CCU ELECTROLYTE REPLACEMENT PROTOCOL FS PRN (17:48)
[2017-04-22] MEDS ORDERED: Potassium Phosphate 15 MMOL in Sodium Chloride 0.9% 250 ML 250 ML IV PRN (17:48)
[2017-04-22] MEDS ORDERED: Potassium Phosphate 12 MMOL in Sodium Chloride 0.9% 250 ML 250 ML IV PRN (17:48)
[2017-04-22] MEDS ORDERED: Magnesium Oxide 400 MG TAB PO PRN ×2 (17:48)
[2017-04-22] MEDS ORDERED: Potassium Chloride 40 MEQ in Sodium Chloride 0.9% 250 ML 250 ML IVPB PRN (17:48)
[2017-04-22] MEDS ORDERED: cefTRIAXone\\ROCEPHIN 1 GM in Sodium Chloride 0.9% 100 ML IVPB SCH (19:00)
--- NOTE | 2017-04-22 19:48 | HP ---
PRIMARY CARE PROVIDER: [facility]. CHIEF COMPLAINT: Vomiting blood. HISTORY OF PRESENT ILLNESS: Mr. Rivero is a 66-year-old gentleman, who was seen at [facility] on 04/22/2017. Please note that patient is currently intubated and unable to provide any history. History was obtained from discussion with his by the bedside, discussion with the emergency room physician and review of medical records. Mr. Rivero was hospitalized at this facility from 03/13/2017 to 03/19/2017 of this year for acute hypo xic respiratory failure secondary to atrial flutter versus atrial fibrillation, acute chronic injury on chronic kidney disease stage 3, hyperbilirubinemia, and CHF exacerbation. Following that admission, he was discharged to [facility], from where he was subse quently discharged home. Today, he started vomiting blood. His reports that he vomited several times, with bright red bl ood. He also had a melanotic stools. In the emergency room, Mr. Rivero was found to have decreased level of consciousness. He was intubate d for airway protection. He was then referred to hospital service for admission. REVIEW OF SYSTEMS: Could not be completed. Because of the patient's intubated status. 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 PAST SURGICAL HISTORY: Significant for hernia repair, subdural hematoma evacuation, AICD placement, and electrophysiology study and radiofrequency ablation on 03/17/2017. FAMILY HISTORY: No family history of liver disease. SOCIAL HISTORY: No history of tobacco use. The patient's also reports that he has not had alco hol in several years. ALLERGIES: No known drug allergies. CURRENT MEDICATIONS: Atorvastatin 20 mg daily, allopurinol 300 mg daily, potassium chloride 20 mEq d aily, tramadol p.r.n., carvedilol 25 mg 2 times a day, digoxin 125 mcg daily, Lasix 40 mg 2 times a d ay, amlodipine 5 mg daily, lisinopril 10 mg daily, multivitamins 1 tablet daily, and ranitidine 75 mg daily. PHYSICAL EXAMINATION: GENERAL: Mr. Rivero is intubated and mechanically ventilated. VITAL SIGNS: Blood pressure is 100/74, pulse is 112. He is breathing at rate of 12 and saturating 9 9% on ventilator. He is afebrile. EYES: He has scleral icterus. No conjunctival pallor. Pupils are reactive to light and equal bilat erally. ENT: Endotracheal tube present. Nasogastric tube with bloody output. NECK: No lymphadenopathy. CARDIOVASCULAR: S1 and S2 are heard, regular and tachycardic. Peripheral pulses palpable in the upp er extremities, feeble in the lower extremities. No pericardial rub. ABDOMEN: Soft, no guarding or rigidity, bowel sounds heard. SKIN: He has bilateral lower extremity edema, with open wounds and eschar on the shins bilaterally. NEUROLOGICAL: Full neurological examination was not possible secondary to the patient's intubated st atus. There is no facial droop. Deep tendon reflexes are 2+. LYMPHATIC: No cervical lymphadenopathy. PSYCHIATRIC: Unable to assess mood, affect, or orientation to person, place, or time. LABORATORY DATA: Mr. Rivero labs and investigations were reviewed. I reviewed his electrocardiogram, which shows sinus tachycardia, no ST changes to suggest an acute coronary syndrome. I also reviewed his chest x-ray, which shows endotracheal tube in place, with a possible interstitial edema. Laboratory investigation showed leukocytosis with 12,100 white cells, of which 87% are neutrophils, m acrocytic anemia with hemoglobin 12.8, thrombocytopenia with platelet count 113,000, INR 3.1, arteria l blood gases showing pH 7.37, pCO2 of 36.5 and pO2 of 144.8, normal sodium, normal potassium, decrea sed carbon dioxide of 16, elevated anion gap of 83, elevated lactic acid of 9.9, elevated creatinine of 2.73, elevated blood urea nitrogen of 83, last known creatinine of 1.19 on 03/19/2017, decreased i esther of 32, decreased TIBC of 195, elevated ferritin of 648, elevated total bilirubin of 12.3, last bi lirubin 7.7 on 03/17/2017, elevated troponin I of 0.325, elevated BNP level of 4330, normal lipase an d urinalysis that is positive for blood, bilirubin, leukocyte esterase, and urobilinogen. ASSESSMENT AND PLAN: Mr. Rivero is a 66-year-old gentleman, who was seen at [facility] on 03/22/2018. His problem list includes: 1. Gastrointestinal bleed: Mr. Rivero is presenting with hematemesis. He is currently intubated and mechanically ventilated. His case has been discussed with Gastroenterology Service by the emergency room physician. Mr. Rivero will be continued on octreotide and Protonix drips. Ceftriaxone will als o be continued, as per GI Service for recommendations. Mr. Rivero will be admitted to the Critical Ca re Unit for further management. His hemoglobin and hematocrit will be rechecked. He is receiving FF P and packed RBCs. 2. Coagulopathy: Patient was noted to have elevated INR during his recent hospitalization, attribut ed to hepatic congestion from congestive heart failure. He is receiving FFPs to correct coagulopathy . 3. Congestive heart failure. Monitor fluid status, adjust fluids accordingly. 4. Hypertension: Monitor vital signs, titrate antihypertensives as needed. 5. Dyslipidemia: Hold statins for now, given abnormal liver function test. 6. Metabolic acidosis: Likely secondary to lactic acidosis from hypoperfusion. Administer fluids, recheck lactic acid level. LEVEL OF RISK: High. LEVEL OF COMPLEXITY: High. Many thanks for allowing me to participate in your patient's care. Please feel free to contact me wi th any questions or concerns.
[2017-04-22 20:33] LABS: INR-International Normal Ratio 2.3; Prothrombin Time 26.5 SEC (12.0-14.7)
[2017-04-22 20:41] LABS: Platelet Count 96 thou/uL (130-400)
[2017-04-22 20:42] LABS: #Lymphocytes 0.6 thou/uL (1.20-3.40); #Monocytes 0.7 thou/uL (0.11-0.59); #Neutrophils 8.3 thou/uL (1.40-6.50); %Eosinophils 0.1 % (0.0-10.0); %Lymphocytes 6.2 % (21.0-51.0); %Monocytes 7.3 % (0.0-10.0); %Neutrophils 86.4 % (42.0-75.0); Mean Corpuscular HGB CONC 31.7 g/dL (32.0-36.0); Mean Corpuscular Volume 94.4 fl (80.0-94.0); RBC Distribution Width 20.5 % (11.5-14.5); Red Blood Cell (RBC) Count 3.67 mill/uL (4.70-6.10); White Blood Cell (WBC) Count 9.6 thou/uL (4.8-10.8)
[2017-04-22 20:45] LABS: Lactic Acid 3.5 mmol/L (0.5-2.2)
[2017-04-22] MEDS: Sodium Chloride 0.9% 1,000 ML IV SCH (20:55)
[2017-04-22] MEDS: Propofol 1,000 MG/100 ML VIAL IV PRN (20:59)
[2017-04-22 21:01] LABS: Critical Call Chem Troponin I RESULT DECREASING
--- NOTE | 2017-04-22 21:01 | CON ---
DATE OF CONSULTATION: 04/22/2017 REASON FOR CONSULTATION: Ventilator management. HISTORY OF PRESENT ILLNESS: This is a 66-year-old male who is intubated in the ER. According to the ER physician, the patient came from home. He was found to have a large upper GI bleed at home with bloody vomitus; however, since he has been here, he has had both melena and bright red blood per rect um. He had NG tubes inserted in the stomach with copious amounts of dark fluid present. He was init ially on BiPAP because of shortness of breath. Dr. Medeiros was contacted from the GI group and stated that the patient needed to be intubated if an EGD was to be performed. The patient has been seen by Dr. Ca and Dr. Stover in the hospital. He has had a head injury in the past from a fall. PAST MEDICAL HISTORY: 1. Cardiomyopathy 2. Chronic atrial fibrillation. 3. Hypertension. 4. Hyperlipidemia. 5. Chronic obstructive pulmonary disease. 6. Question of varices in the past. PAST SURGICAL HISTORY: 1. Hernia repair. 2. Dual chamber AICD placement. 3. Bilateral evacuation of subdural hematoma. FAMILY MEDICAL HISTORY: Unremarkable. SOCIAL HISTORY: , does not smoke, does not consume alcohol. ALLERGIES: None. MEDICATIONS: Demadex, potassium chloride, lisinopril, DuoNeb, Coreg, Lipitor, Augmentin, albuterol, RespiClick. REVIEW OF SYSTEMS: Cannot be obtained as the patient is intubated on mechanical ventilation. ALLERGIES: None. PHYSICAL EXAMINATION: VITAL SIGNS: Heart rate 107, blood pressure 117/93, respiratory rate 18. GENERAL: The patient is currently intubated on mechanical ventilation. HEENT: His pupils are reactive. Sclerae are anicteric. Oropharynx is clear. NECK: No JVD. LUNGS: Clear to auscultation bilaterally. CARDIOVASCULAR: S1, S2, tachycardic without murmur. ABDOMEN: Soft, slightly protuberant. EXTREMITIES: He has edema in his thighs. He has some ulcerative lesions about 1 cm in size of his l eft leg. NEUROLOGIC: He is currently chemically paralyzed and neuro exam cannot be performed for that reason. LABORATORY DATA: White blood cell count 12, hematocrit 41, platelet count 113. INR 3.1, pH 7.39, pC O2 of 30, pO2 of 141 that was on 60% FiO2 on BiPAP. Sodium 138, potassium 5, chloride 101, CO2 16, B UN 83, creatinine 2.7, glucose 80, lactate is 9.9, troponin 0.32. BNP 4330. His x-rays that I revie wed post-intubation showed the endotracheal tube in good position. He had cardiomegaly, no acute inf iltrates. There is a defibrillator pacemaker present in the left chest. ASSESSMENT: 1. Upper gastrointestinal bleeding. 2. Acute respiratory failure requiring mechanical ventilation. 3. Elevated BNP. RECOMMENDATIONS: 1. GI consultation. 2. Fluid resuscitation. 3. Octreotide drip. 4. Adjust mechanical ventilation settings.
[2017-04-23] MEDS: Sodium Chloride 0.9% 1,000 ML IV SCH ×2 (01:19→04:29)
--- NOTE | 2017-04-23 02:31 | OP ---
PREOPERATIVE DIAGNOSES: 1. Hematemesis and melena, gastrointestinal bleed. 2. Coagulopathy. PROCEDURES: Esophagogastroduodenoscopy with control of hemorrhage. The patient was on the ventilato r, intubated. Anesthesia was not utilized. The patient received 2 units FFP just before starting th e procedure secondary to INR of 3. POSTOPERATIVE DIAGNOSES: 1. Ulcer, large, circumferential at the gastroesophageal junction, irregular with multiple little ve ssels, one of the clot and active bleeding. This was injected with 1:10,000 epinephrine 4 mL and the n cauterized with a 10-Mauritian heater probe with good ablation. A second small visible vessel then be [place] to bleed and this was cauterized with 10-Mauritian heater probe and ablated. 2. Hiatal hernia with no evidence of Tiffany-Mckeon tear or Angus's ulcers or erosions. 3. Otherwise, normal stomach. 4. [place] ulcers in the duodenum 2-3 mm x 4-5 mm in size, white base with no active bleeding. 5. Normal duodenum and the third portion. RECOMMENDATIONS: 1. Keep the patient intubated. 2. The patient will need to be seen by Cardiology and Critical Care. 3. Continue Protonix drip. 4. Wean octreotide drip in the morning as there is no evidence of varices. 5. Serial H&Hs. 6. Transfuse for hemoglobin less than 8 or give FFP for INR of greater than 2.5. 7. It would be reasonable to perform a second look endoscopy before the patient was extubated. Actu ally, this does not appear to be a malignancy in his esophagus. PROCEDURE IN DETAIL: After the patient's was informed of the risks, benefits, and possible comp lications of endoscopy including perforation, bleeding, reactions to medication and aspiration, [facility] consent was obtained. The patient was already intubated in the ICU. The endoscope was advanced through the esophagus, stomach, and the second and third portion of the duodenum. There was a large amount of blood and ulcer in the distal esophagus. This was passed and the stomach was entered and t here was a hiatal hernia. There was no evidence of Angus's ulcers or erosions. Retroflexed views in the stomach revealed some old blood. This was cleared away and no varices were seen in the stomac h or lesions in the proximal stomach. The antrum was normal. The duodenal bulb was entered and ther e were some small white-based erosions 2-5 mm in size with no active bleeding. The duodenal bulb was investigated and cleared of all debris, was passed to the second and third portions with no blood or ulcers noted. The scope was then brought back into the esophagus and the esophagus was irrigated an d suctioned away and there was a large ulcer noted with a visible vessel with active arterial bleedin g. There were no signs of varices or portal hypertensive change in this region. Injection of epinep hrine 1:10,000, 4 mL was made and the bleeding slowed. At this point in time, a 10-Mauritian heater pro be was used to cauterize the visible vessel with good effect. There was another small vessel next to it, which started oozing, this was cauterized as well. The area was then irrigated again, the stoma ch was reevaluated. Retroflexed views in the esophagus were again looked at, there was no active ble eding. The NG tube was replaced. The esophagus appeared normal still with no bleeding. The scope w as removed. The patient tolerated the procedure well with no complications. I think that it would be reasonable to perform a second look endoscopy before this patient is extubat ed to make sure that this does not appear to be a malignancy. This could be done at a later date.
[2017-04-23 04:12] LABS: Anion Gap 15 mmol/L (10-20); BUN (Urea Nitrogen) 91 mg/dL (8.4-25.7); Calc. Creatinine Clearance 38 mL/min (70-130); Calcium 8.7 mg/dL (7.8-10.44); Carbon Dioxide 24 mmol/L (23-31); Chloride 105 mmol/L (98-107); Estimated GFR-MDRD 32; Glucose 152 mg/dL (80-115); Potassium 4.3 mmol/L (3.5-5.1); Sodium 140 mmol/L (136-145)
[2017-04-23 04:24] LABS: #Monocytes 0.5 thou/uL (0.11-0.59); #Neutrophils 8.3 thou/uL (1.40-6.50); %Eosinophils 0.2 % (0.0-10.0); %Neutrophils 84.9 % (42.0-75.0); Hemoglobin 10.6 g/dL (14.0-18.0); Mean Corpuscular HGB CONC 32.1 g/dL (32.0-36.0); Mean Corpuscular Hemoglobin 30.2 pg (27.0-31.0); Mean Platelet Volume 10.1 fL (7.4-10.4); Platelet Count 79 thou/uL (130-400); RBC Distribution Width 19.6 % (11.5-14.5); Red Blood Cell (RBC) Count 3.52 mill/uL (4.70-6.10); White Blood Cell (WBC) Count 9.7 thou/uL (4.8-10.8)
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
[2017-04-23 07:33] LABS: Actual Bicarbonate (HCO3a) 24.3 mEq/L (22-26); Base Excess (BEa) -0.7 mEq/L (0 (+/-) 2.5); CO2 Tension 41.4 mmHg (35.0-45.0); Calcium, Ionized 1.3 mmol/L (1.12-1.30); Hematocrit-ABG 32.4 % (42.0-52.0); Hemoglobin (Hb) 10.1 g/dL (14.0-18.0); O2 Tension (PaO2) 78.5 mmHg (80.0-100.0); Puncture Site LRA; pH, Arterial 7.39 (7.35-7.45)
--- NOTE | 2017-04-23 08:27 | RAD ---
AP VIEW CHEST: HISTORY: Ventilator-dependent patient. FINDINGS: AP view chest was obtained on 04/23/17. Comparison is made to previous exam from 04/22/17. AP view chest demonstrates nasogastric and endotracheal tubes to be in place. A dual-lead intracardi ac defibrillator is seen. Cardiomegaly is noted. There is some blunting of the left costophrenic an gle compatible with a small left-sided pleural effusion. No other significant intrathoracic abnormal ity is seen. IMPRESSION: 1. Cardiomegaly, pulmonary vascular congestion, and left-sided pleural effusions. 2. Nasogastric and endotracheal tubes are in good position. POS: [facility]
[2017-04-23] MEDS: cefTRIAXone\\ROCEPHIN 1 GM, Syringe 0.4 ML in Sterile Water 9.6 ML SLOW IVP SCH (08:42)
[2017-04-23] MEDS ORDERED: FLU VACC TS2017-18 (>65YR) 0.5 ML SYRINGE IM ONE (09:00)
[2017-04-23] MEDS: Pantoprazole 80 MG in Sodium Chloride 0.9% 100 ML IVP SCH ×2 (09:33→19:47)
[2017-04-23] MEDS ORDERED: Sodium Chloride 0.9% 1,000 ML IV SCH (10:49)
[2017-04-23] MEDS ORDERED: Furosemide 100 MG/10 ML VIAL SLOW IVP SCH (11:00)
--- NOTE | 2017-04-23 11:05 | PRG ---
DATE OF SERVICE: 04/23/2017 SERVICE: Pulmonary Medicine. INTERVAL HISTORY: The patient is doing okay from a respiratory standpoint. Overnight, he was seen b y Gastroenterology. EGD was performed and there was an actively bleeding large ulcer in the stomach. It was injected and cauterized. He had good hemostasis. Dr. Medeiros has requested that we leave th e patient intubated for the time being, because of the higher risk of rebleed. He is going to do a s econd look before we consider extubating him. Otherwise, there have been no other changes. The amelia ent is encephalopathic and cannot provide any additional elements of the history. PHYSICAL EXAMINATION: VITAL SIGNS: Afebrile, pulse 115, blood pressure 107/76, respirations 18, saturation 94% on 40% FiO2 and a PEEP of 5. GENERAL: The patient is intubated. He is encephalopathic. He has been off of sedation for over 3 h ours, but still remains poorly responsive. He does follow some simple commands, but falls asleep tamia ost immediately. He grimaces with noxious stimuli to all 4 extremities. HEENT: Normocephalic, atraumatic. Sclerae are white, conjunctivae pink. Oral and nasal mucosae are moist without lesions. LUNGS: Decent air entry. Crackles are present. HEART: Normal rate, regular. ABDOMEN: Soft, nontender, nondistended. Bowel sounds are positive. MUSCULOSKELETAL: No cyanosis or clubbing. He has got 3-4+ pitting on the dependent portion of his e ntire body. GENITOURINARY: Moody catheter in place. NEUROLOGIC: Grossly nonfocal. LABORATORY DATA: WBC 9.7, hemoglobin 10.6 and roughly stable, platelets 79,000. INR 2.3. PH 7.39, pCO2 of 41, pO2 of 78. Creatinine 2.45 and down trending. BUN 91 and roughly stable. Basic metabol ic profile is otherwise unremarkable. Calcium 8.7, lactate 3.5, significantly improved. Troponin 0. 32 and down trending. BNP 4300. Liver function studies were essentially unremarkable except for a b ilirubin of 12.3. Urinalysis is positive for bilirubin, leukocyte esterase, and urobilinogen. Urine culture is unremarkable today. IMAGING: Chest x-ray demonstrates endotracheal tube in decent position. There is cardiomegaly and p ulmonary vascular congestion. Left side pleural effusion is obvious. There is an enteric catheter c oursing below the level of the diaphragm. Pacemaker wires overlie the chest. ASSESSMENT: 1. Acute hypoxic respiratory failure. 2. Acute on chronic systolic heart failure. 3. Chronic atrial fibrillation. 4. Acute blood loss anemia. 5. Peptic ulcer disease. PLAN: We will continue our antibiotic, aggressive Protonix, and octreotide per GI recommendations. Pulmonary Critical Care will continue to follow while the patient remains in this location. He will remain on mechanical ventilation until GI has an opportunity to re-scope him. He will remain intubat ed until we are further notified that it would be reasonable for us to start weaning the ventilator. We will provide him with a sedation holiday as long as he tolerates it. Supportive measures will ot herwise be continued. Critical care time: 30 minutes.
[2017-04-23] MEDS ORDERED: Furosemide 100 MG/10 ML VIAL ONE (12:18)
--- NOTE | 2017-04-23 14:17 | PRG ---
DATE OF SERVICE: 04/23/2017 SUBJECTIVE: The patient is on the vent, does not anything history of present illness. OBJECTIVE: VITAL SIGNS: Pulse is 130, blood pressure 122/81, respiratory rate 18, temperature 98.1. CHEST: Clear. CARDIOVASCULAR: Regular rate and rhythm. ABDOMEN: Benign. LABORATORY DATA: Shows hemoglobin 10.6, hematocrit 33.1, platelet count is 79,000. PT is 26.5 with an INR of 2.3. Chemistries show BUN 91, creatinine 2.45, glucose 152, total bilirubin is 12.3, AST o f 58, and BMP was 4330. ASSESSMENT: 1. Upper gastrointestinal hemorrhage - stable. 2. Large ulcer at the gastroesophageal junction. 3. Heart failure. RECOMMENDATIONS: 1. Okay to discontinue octreotide. 2. Continue proton pump inhibitor continuous infusion. 3. Repeat EGD in 48-72 hours.
--- NOTE | 2017-04-23 15:08 | PDOC.PN ---
- Subjective Encounter Start Date: 04/23/17 Encounter Start Time: 09:00 Pt seen for followup re: GI bleed. Intubated, unable to complete ROS. - Objective Resuscitation Status: Resuscitation Status FULL:Full Resuscitation MAR Reviewed: Yes Vital Signs & Weight: Vital Signs (12 hours) Temp Pulse Resp BP Pulse Ox 04/23/17 12:00 101.6 F H 04/23/17 11:20 117 H 107/78 04/23/17 11:07 120 H 21 H 92 L 04/23/17 10:00 22 H 04/23/17 08:00 100.6 F H 04/23/17 07:02 103 H 99/74 04/23/17 06:56 98 14 98 04/23/17 06:00 14 04/23/17 04:00 98.8 F 14 Weight Admit Weight 206 lb Weight 206 lb 5.643 oz Most Recent Monitor Data Heart Rate from ECG 128 NIBP 107/78 NIBP BP-Mean 85 Respiration from ECG 25 SpO2 94 I&O: 04/22/17 04/23/17 04/24/17 06:59 06:59 06:59 Intake Total 2211.7 0 Output Total 570 490 Balance 1641.7 -490 Result Diagrams: 04/24/17 04:00 04/24/17 04:00 EKG Reviewed by me: Yes (Tele: NSR) Phys Exam - Physical Examination Intubated HEENT: moist MMs ETT+, scleral icterus+ Neck: no nodes Respiratory: no wheezing, no rales, no rhonchi, clear to auscultation bilateral Cardiovascular: RRR, no rub Gastrointestinal: soft, non-tender, no distention, positive bowel sounds Musculoskeletal: pulses present, edema present Neurological: moves all 4 limbs Deviation from normal: Unable to assess mood, affect or orientation to person, place or time Deviation from normal: Multiple wounds toya shins Dx/Plan (1) GI bleed Code(s): K92.2 - GASTROINTESTINAL HEMORRHAGE, UNSPECIFIED Status: Acute (2) Esophagogastric ulcer Code(s): K25.9 - GASTRIC ULCER, UNSP ACUTE OR CHRONIC, W/O HEMOR OR PERF Status: Acute (3) ALEXSANDRA (acute kidney injury) Code(s): N17.9 - ACUTE KIDNEY FAILURE, UNSPECIFIED Status: Acute (4) Elevated troponin Code(s): R74.8 - ABNORMAL LEVELS OF OTHER SERUM ENZYMES Status: Acute (5) DM2 (diabetes mellitus, type 2) Status: Chronic (6) Dyslipidemia Code(s): E78.5 - HYPERLIPIDEMIA, UNSPECIFIED Status: Chronic (7) Gout Code(s): M10.9 - GOUT, UNSPECIFIED Status: Chronic (8) Hypertension Code(s): I10 - ESSENTIAL (PRIMARY) HYPERTENSION Status: Chronic Qualifiers: Hypertension type: unspecified Qualified Code(s): I10 - Essential (primary ) hypertension - Plan * . Continue PPI drip. Continue antibiotics as below. GI, PCCM following. s/p EGD yesterday, repeat EGD planned. Review of Systems - Medications/Allergies Allergies/Adverse Reactions: Allergies Allergy/AdvReac Type Severity Reaction Status Date / Time No Known Allergies Allergy Verified 04/22/17 20:19 Medications: Current Medications Albuterol/Ipratropium (Duoneb) 3 ml NEB [id number] ANA Last Admin: 04/23/17 11:07 Dose: 3 ml Furosemide (Lasix) 80 mg SLOW IVP 0600 ANA Fentanyl Citrate 2,000 mcg/ (Sodium Chloride) 100 mls @ 0 mls/hr IV INF ANA; Per Protocol PRN Reason: Protocol Stop: 05/22/17 17:48 Fentanyl Citrate (Fentanyl Bolus) 250 mls @ 0 mls/hr IVPB PRN PRN; As Directed PRN Reason: Breakthrough pain Stop: 05/22/17 17:48 Pantoprazole Sodium 80 mg/ (Sodium Chloride) 100 mls @ 10 mls/hr IVP INF ANA Last Admin: 04/23/17 09:33 Dose: 100 mls Ceftriaxone Sodium 1 gm/ (Syringe 0.4 ml/ Sterile Water) 10 mls @ 120 mls/hr SLOW IVP Q24HR ANA Last Admin: 04/23/17 08:42 Dose: 10 mls Sodium Chloride (Normal Saline 0.9%) 1,000 mls @ 0 mls/hr IV .Q0M ANA PRN Reason: KVO Influenza Virus Vaccine (Fluzone High-Dose Syr) 0.5 ml IM .ONCE ONE Stop: 04/27/17 12:31 Lactulose (Lactulose) 30 gm PO DAILY ANA Ccu Electrolyte (Replacement Protocol) 0 each FS PRN PRN PRN Reason: FOR ELECTROLYTE REPLACEMENT Discontinue Previous Narcotic Pain Medications And Benzodiazepines 1 each FS .ONE [facility] Stop: 05/22/17 17:48 Propofol (Diprivan) 1,000 mg IV INF PRN; Protocol PRN Reason: TO ACHIEVE SCHNEIDER SCORE 2-3 Stop: 05/22/17 17:48 Last Admin: 04/22/17 20:59 Dose: 1,000 mg Sodium Chloride (Flush - Normal Saline) 10 ml IVF Q12HR [facility] Last Admin: 04/23/17 08:43 Dose: 10 ml Sodium Chloride (Flush - Normal Saline) 10 ml IVF PRN PRN PRN Reason: Saline Flush
[2017-04-23] MEDS: Propofol 1,000 MG/100 ML VIAL IV PRN (15:30)
[2017-04-23] MEDS ORDERED: Digoxin 0.5 MG/2 ML AMP SLOW IVP SCH (19:15)
[2017-04-24] MEDS: Propofol 1,000 MG/100 ML VIAL IV PRN ×2 (00:19→18:12)
[2017-04-24] MEDS ORDERED: Digoxin 0.5 MG/2 ML AMP SLOW IVP SCH ×3 (01:30→23:15)
[2017-04-24] MEDS: Pantoprazole 80 MG in Sodium Chloride 0.9% 100 ML IVP SCH (04:28)
[2017-04-24 04:52] LABS: Anion Gap 16 mmol/L (10-20); BUN (Urea Nitrogen) 78 mg/dL (8.4-25.7); Calc. Creatinine Clearance 44 mL/min (70-130); Calcium 8.5 mg/dL (7.8-10.44); Carbon Dioxide 26 mmol/L (23-31); Chloride 107 mmol/L (98-107); Estimated GFR-MDRD 38; Glucose 104 mg/dL (80-115); Sodium 145 mmol/L (136-145)
[2017-04-24 05:18] LABS: Band 9 % (5-11); Hemoglobin 11.2 g/dL (14.0-18.0); Hypochromia SLIGHT = 6-15 cells (100X) (0-5/hpf); Lymphocytes 9 % (21-51); MDiff Complete? YES; Mean Corpuscular HGB CONC 31.4 g/dL (32.0-36.0); Mean Corpuscular Hemoglobin 29.5 pg (27.0-31.0); Mean Corpuscular Volume 93.9 fl (80.0-94.0); Mean Platelet Volume 10.4 fL (7.4-10.4); Monocytes 1 % (0-10); Neutrophil 80 % (42-75); Platelet Count 71 thou/uL (130-400); Polychromasia SLIGHT = 2-3 cells (100X) (0-2/hpf); Reactive Lymphocytes 1 % (0-10); White Blood Cell (WBC) Count 7.6 thou/uL (4.8-10.8)
[2017-04-24] MEDS ORDERED: Furosemide 100 MG/10 ML VIAL SLOW IVP SCH ×2 (06:00→10:05)
[2017-04-24] MEDS: cefTRIAXone\\ROCEPHIN 1 GM, Syringe 0.4 ML in Sterile Water 9.6 ML SLOW IVP SCH (08:44)
[2017-04-24] MEDS ORDERED: Dextrose 5% in Water 1,000 ML IV SCH (10:15)
--- NOTE | 2017-04-24 10:15 | PRG ---
DATE OF SERVICE: 04/24/2017 SERVICE: Pulmonary Medicine INTERVAL HISTORY: Overnight, the patient went into atrial fibrillation and had a rapid rate. He got a couple doses of digoxin and his heart rate is under slightly better control. Blood pressure is do ing a little bit better. He is encephalopathic secondary to likely medications and possible toxins f rom liver disease. Otherwise, there has been no interval change to his condition. The edema is slig htly improved. PHYSICAL EXAMINATION: VITAL SIGNS: Afebrile, currently with a T-max of 101.6. Pulse 114, blood pressure 101/70, respirati ons 13, saturation 100% on 31% FiO2 and a PEEP of 5. GENERAL: Patient is intubated and sedated. HEENT: Normocephalic, atraumatic. Sclerae are white, conjunctivae pink. Oral mucosa is moist witho ut lesions. LUNGS: Decent air entry. Crackles are present. No prolonged expiratory phase or wheezing is apprec iated. He has thick, purulent material coming from endotracheal tube. ABDOMEN: Soft, nontender, nondistended. Bowel sounds are positive. HEART: Tachycardic. Regular. MUSCULOSKELETAL: No cyanosis or clubbing. There is diffuse edema present throughout the dependent r egions of his entire body. GENITOURINARY: Moody catheter in place. NEUROLOGIC: Grossly nonfocal. LABORATORY DATA: WBC 7.6, hemoglobin 11.2, platelets 71,000. INR 2.3 and roughly stable. Creatinin e is down trending to 2.12. BUN 78. Basic metabolic profile is otherwise unremarkable, but his sodi um is starting to creep up at 145. Ammonia was quite low. Blood culture x1 and urine culture negati ve to date. ASSESSMENT: 1. Acute hypoxic respiratory failure, slowly improving. 2. Acute on chronic systolic heart failure. 3. Chronic atrial fibrillation. 4. Acute blood loss anemia. 5. Peptic ulcer disease. 6. Community-acquired pneumonia. PLAN: We will continue empiric antibiotics directed at pathology. He has significantly improved over the last 24 hours. His sodium is starting to creep up so we will add some free water, but will need to continue to aggressively diurese him as tolerated. He will remain on mechanical ventilation until his mentation improves, and he demonstrates no strength to clear his secretions which are quite heavy at this time. We will give him a spontaneous breathing trial today just to see how things go. To be honest with you, his oxygen requirements are quite low. Critical care time: 30 minutes.
[2017-04-24] MEDS: Piperacillin/Tazobactam 2.25 GM in Sodium Chloride 0.9% 50 ML IVPB SCH ×2 (10:32→17:54)
--- NOTE | 2017-04-24 12:57 | PDOC.PN ---
- Subjective Encounter Start Date: 04/24/17 Encounter Start Time: 10:00 Pt seen for followup re: GI bleed. Intubated, unable to obtain ROS. - Objective Resuscitation Status: Resuscitation Status FULL:Full Resuscitation MAR Reviewed: Yes Vital Signs & Weight: Vital Signs (12 hours) Temp Pulse Resp BP Pulse Ox 04/24/17 12:00 98.6 F 04/24/17 11:27 129 H 115/82 04/24/17 11:16 127 H 20 94 L 04/24/17 10:28 114 H 04/24/17 10:00 17 04/24/17 08:05 114 H 101/75 04/24/17 08:04 115 H 15 99 04/24/17 08:00 98.2 F 04/24/17 07:00 98.2 F 04/24/17 06:00 14 04/24/17 04:00 97.7 F 12 04/24/17 02:40 112 H 15 92 L 04/24/17 02:00 15 04/24/17 01:39 127 H Weight Admit Weight 206 lb Weight 206 lb 5.643 oz Most Recent Monitor Data Heart Rate from ECG 132 NIBP 118/71 NIBP BP-Mean 87 Respiration from ECG 18 SpO2 97 I&O: 04/23/17 04/24/17 04/25/17 06:59 06:59 06:59 Intake Total 2211.7 2002.4 0 Output Total 570 3280 1270 Balance 1641.7 -1277.6 -1270 Result Diagrams: 04/24/17 04:00 04/24/17 04:00 EKG Reviewed by me: Yes (Tele: a fib with rvr) Phys Exam - Physical Examination Intubated HEENT: moist MMs Scleral icterus+, ETT+ Neck: no nodes Respiratory: no wheezing, no rhonchi Bibasal crackles Cardiovascular: irregular S1, S2, tachy, irreg Gastrointestinal: soft, non-tender, no distention, positive bowel sounds Musculoskeletal: edema present Neurological: moves all 4 limbs Deviation from normal: Unable to assess mood, affect or orientation to person, place or time Deviation from normal: James leg wounds Dx/Plan (1) GI bleed Code(s): K92.2 - GASTROINTESTINAL HEMORRHAGE, UNSPECIFIED Status: Acute (2) Esophagogastric ulcer Code(s): K25.9 - GASTRIC ULCER, UNSP ACUTE OR CHRONIC, W/O HEMOR OR PERF Status: Acute (3) ALEXSANDRA (acute kidney injury) Code(s): N17.9 - ACUTE KIDNEY FAILURE, UNSPECIFIED Status: Acute (4) Elevated troponin Code(s): R74.8 - ABNORMAL LEVELS OF OTHER SERUM ENZYMES Status: Acute (5) DM2 (diabetes mellitus, type 2) Status: Chronic (6) Dyslipidemia Code(s): E78.5 - HYPERLIPIDEMIA, UNSPECIFIED Status: Chronic (7) Gout Code(s): M10.9 - GOUT, UNSPECIFIED Status: Chronic (8) Hypertension Code(s): I10 - ESSENTIAL (PRIMARY) HYPERTENSION Status: Chronic Qualifiers: Hypertension type: unspecified Qualified Code(s): I10 - Essential (primary ) hypertension - Plan plan discussed w/ family, continue antibiotics * . Hemoglobin stable, creatinine improving. Continue diuretics. Gave a third dose of digoxin (0.25 mg), continue to monitor telemetry. Continue IV antibiotic as below. Review of Systems - Medications/Allergies Allergies/Adverse Reactions: Allergies Allergy/AdvReac Type Severity Reaction Status Date / Time No Known Allergies Allergy Verified 04/22/17 20:19 Medications: Current Medications Acetaminophen (Tylenol) 325 mg PO Q6H PRN PRN Reason: Headache/Fever or Pain Albuterol/Ipratropium (Duoneb) 3 ml NEB [id number] ANA Last Admin: 04/24/17 11:16 Dose: 3 ml Furosemide (Lasix) 60 mg SLOW IVP 0600 ANA Fentanyl Citrate 2,000 mcg/ (Sodium Chloride) 100 mls @ 0 mls/hr IV INF ANA; Per Protocol PRN Reason: Protocol Stop: 05/22/17 17:48 Last Admin: 04/23/17 17:45 Dose: 100 mls Fentanyl Citrate (Fentanyl Bolus) 250 mls @ 0 mls/hr IVPB PRN PRN; As Directed PRN Reason: Breakthrough pain Stop: 05/22/17 17:48 Dextrose/Water (D5w) 1,000 mls @ 50 mls/hr IV .Q20H ANA Last Admin: 04/24/17 10:28 Dose: 1,000 mls Piperacillin Sod/Tazobactam (Sod 2.25 gm/ Sodium Chloride) 50 mls @ 100 mls/hr IVPB Q6HR ANA Last Admin: 04/24/17 10:32 Dose: 50 mls Influenza Virus Vaccine (Fluzone High-Dose Syr) 0.5 ml IM .ONCE ONE Stop: 04/27/17 12:31 Lactulose (Lactulose) 30 gm PO DAILY [facility] Last Admin: 04/24/17 08:45 Dose: 30 gm Pantoprazole Sodium (Protonix) 40 mg IVP Q12HR [facility] Propofol (Diprivan) 1,000 mg IV INF PRN; Protocol PRN Reason: TO ACHIEVE SCHNEIDER SCORE 2-3 Stop: 05/22/17 17:48 Last Admin: 04/24/17 00:19 Dose: 1,000 mg Sodium Chloride (Flush - Normal Saline) 10 ml IVF Q12HR [facility] Last Admin: 04/24/17 08:45 Dose: 10 ml Sodium Chloride (Flush - Normal Saline) 10 ml IVF PRN PRN PRN Reason: Saline Flush
--- NOTE | 2017-04-24 13:59 | PRG ---
DATE OF SERVICE: 04/24/2017 SUBJECTIVE: The patient is on the ventilator and adds nothing, has no subjective complaints. OBJECTIVE: VITAL SIGNS: Pulse is 135, blood pressure 110/71, respiratory rate of 29. CHEST: Clear. CARDIOVASCULAR: Regular rate and rhythm. ABDOMEN: Soft and nontender without organomegaly or masses. LABORATORY DATA: Shows hemoglobin of 11.2, hematocrit 35.6. Chemistries show BUN 78, creatinine 2.1 2. ASSESSMENT: 1. Gastrointestinal bleed secondary to gastroesophageal junction ulceration - stable. 2. Congestive heart failure. 3. Respiratory failure. 4. Pneumonia. RECOMMENDATIONS: 1. Continue proton pump inhibitor. 2. Dr. Bella covering weekend.
[2017-04-24] MEDS: Pantoprazole 40 MG VIAL IVP SCH (21:00)
[2017-04-24] MEDS ORDERED: Sodium Chloride 0.9% 500 ML IVPB SCH (23:00)
[2017-04-24] MEDS: Piperacillin/Tazobactam 2.25 GM in Sodium Chloride 0.9% 100 ML IVPB SCH (23:23)
[2017-04-25] MEDS: Sodium Chloride 0.9% 1,000 ML IV SCH ×2 (02:10→14:45)
[2017-04-25] MEDS ORDERED: Sodium Chloride 0.9% 500 ML IVPB SCH (02:15)
[2017-04-25 04:17] LABS: Anion Gap 15 mmol/L (10-20); BUN (Urea Nitrogen) 70 mg/dL (8.4-25.7); Calc. Creatinine Clearance 51 mL/min (70-130); Carbon Dioxide 27 mmol/L (23-31); Chloride 112 mmol/L (98-107); Estimated GFR-MDRD 44; Glucose 144 mg/dL (80-115); Potassium 3.5 mmol/L (3.5-5.1); Sodium 150 mmol/L (136-145)
[2017-04-25 04:26] LABS: Band 15 % (5-11); Hemoglobin 10.1 g/dL (14.0-18.0); Lymphocytes 8 % (21-51); MDiff Complete? YES; Mean Corpuscular HGB CONC 31.7 g/dL (32.0-36.0); Mean Corpuscular Hemoglobin 30.1 pg (27.0-31.0); Mean Corpuscular Volume 95.2 fl (80.0-94.0); Mean Platelet Volume 6.2 fL (7.4-10.4); Monocytes 2 % (0-10); Neutrophil 75 % (42-75); PLT Morphology Comment Appears Decreased; Platelet Count 47 thou/uL (130-400); RBC Distribution Width 20.6 % (11.5-14.5); Red Blood Cell (RBC) Count 3.34 mill/uL (4.70-6.10); White Blood Cell (WBC) Count 6.9 thou/uL (4.8-10.8)
[2017-04-25] MEDS: Piperacillin/Tazobactam 2.25 GM in Sodium Chloride 0.9% 100 ML IVPB SCH ×4 (06:09→23:31)
[2017-04-25] MEDS: Propofol 1,000 MG/100 ML VIAL IV PRN ×2 (06:19→16:25)
[2017-04-25] MEDS: Pantoprazole 40 MG VIAL IVP SCH ×2 (09:33→20:00)
--- NOTE | 2017-04-25 10:20 | PRG ---
DATE OF SERVICE: 04/25/2017 The patient is intubated on the vent, sedated. Appears to be encephalopathic. His initial x-ray lucinda ws left-sided pleural effusion. PHYSICAL EXAMINATION: VITAL SIGNS: Blood pressure 102/80, pulse is 80, respirations 18, his I's and O's are 2712 in, 3223 out. CHEST: Chest revealed bilateral rhonchi. CARDIAC: Normal S1-S2. No gallops. LABORATORY: White count is 6000, H&H 10 and 30, platelet count 47, 75 segs, 15 bands. Sodium 150, c reatinine 1.8, BUN 70. His is at the bedside. She told me [facility] [place]. IMPRESSION: 1. Respiratory failure. 2. Gastrointestinal bleed. 3. Left pleural effusion. 4. Congestive heart failure. 5. Atrial fibrillation. 6. Pneumonia. PLAN: Continue antibiotics. Continue nutrition, PT and supportive care. Slow weaning. One-half hour critical care time.
--- NOTE | 2017-04-25 11:42 | PDOC.PN ---
- Subjective Encounter Start Date: 04/25/17 Encounter Start Time: 09:20 Pt seen for followup re: GI Bleed. Intubated, unable to obtain ROS. - Objective Resuscitation Status: Resuscitation Status FULL:Full Resuscitation MAR Reviewed: Yes Vital Signs & Weight: Vital Signs (12 hours) Temp Pulse Resp BP Pulse Ox 04/25/17 10:46 105 H 113/79 04/25/17 08:06 80 102/66 04/25/17 06:00 14 04/25/17 04:00 99.1 F 18 04/25/17 02:34 117 H 18 95 04/25/17 02:00 19 04/25/17 00:00 99.6 F 18 Weight Admit Weight 206 lb Weight 206 lb 5.643 oz Most Recent Monitor Data Heart Rate from ECG 86 NIBP 88/60 NIBP BP-Mean 67 Respiration from ECG 23 SpO2 94 I&O: 04/24/17 04/25/17 04/26/17 06:59 06:59 06:59 Intake Total 2002.4 2712.3 Output Total 3280 3230 Balance -1277.6 -517.7 Result Diagrams: 04/25/17 03:39 04/25/17 03:39 EKG Reviewed by me: Yes (Tele: a. barrera) Phys Exam - Physical Examination Intubated ETT+, sclerae icteric Neck: no nodes Respiratory: clear to auscultation bilateral Cardiovascular: irregular Gastrointestinal: soft Musculoskeletal: edema present No spontaneous limb movements Deviation from normal: leg wounds+ Dx/Plan (1) GI bleed Code(s): K92.2 - GASTROINTESTINAL HEMORRHAGE, UNSPECIFIED Status: Acute (2) Esophagogastric ulcer Code(s): K25.9 - GASTRIC ULCER, UNSP ACUTE OR CHRONIC, W/O HEMOR OR PERF Status: Acute (3) ALEXSANDRA (acute kidney injury) Code(s): N17.9 - ACUTE KIDNEY FAILURE, UNSPECIFIED Status: Acute (4) Elevated troponin Code(s): R74.8 - ABNORMAL LEVELS OF OTHER SERUM ENZYMES Status: Acute (5) DM2 (diabetes mellitus, type 2) Status: Chronic (6) Dyslipidemia Code(s): E78.5 - HYPERLIPIDEMIA, UNSPECIFIED Status: Chronic (7) Gout Code(s): M10.9 - GOUT, UNSPECIFIED Status: Chronic (8) Hypertension Code(s): I10 - ESSENTIAL (PRIMARY) HYPERTENSION Status: Chronic Qualifiers: Hypertension type: unspecified Qualified Code(s): I10 - Essential (primary ) hypertension - Plan * . Creatinine improving. Hypernatremia, ? due to overdiuresis, decrease lasix dose. Continue antibiotics. Cardiology consulted. Review of Systems - Medications/Allergies Allergies/Adverse Reactions: Allergies Allergy/AdvReac Type Severity Reaction Status Date / Time No Known Allergies Allergy Verified 04/22/17 20:19 Medications: Current Medications Acetaminophen (Tylenol) 325 mg PO Q6H PRN PRN Reason: Headache/Fever or Pain Albuterol/Ipratropium (Duoneb) 3 ml NEB [id number] [facility] Last Admin: 04/25/17 10:45 Dose: 3 ml Furosemide (Lasix) 60 mg SLOW IVP 0600 [facility] Last Admin: 04/25/17 06:09 Dose: 60 mg Fentanyl Citrate 2,000 mcg/ (Sodium Chloride) 100 mls @ 0 mls/hr IV INF ANA; Per Protocol PRN Reason: Protocol Stop: 05/22/17 17:48 Last Admin: 04/23/17 17:45 Dose: 100 mls Fentanyl Citrate (Fentanyl Bolus) 250 mls @ 0 mls/hr IVPB PRN PRN; As Directed PRN Reason: Breakthrough pain Stop: 05/22/17 17:48 Piperacillin Sod/Tazobactam (Sod 2.25 gm/ Sodium Chloride) 100 mls @ 200 mls/ hr IVPB Q6HR [facility] Last Admin: 04/25/17 11:30 Dose: 100 mls Sodium Chloride (Normal Saline 0.9%) 1,000 mls @ 100 mls/hr IV .Q10H [facility] Last Admin: 04/25/17 02:10 Dose: 1,000 mls Influenza Virus Vaccine (Fluzone High-Dose Syr) 0.5 ml IM .ONCE ONE Stop: 04/27/17 12:31 Lactulose (Lactulose) 30 gm PO DAILY [facility] Last Admin: 04/25/17 09:32 Dose: 30 gm Pantoprazole Sodium (Protonix) 40 mg IVP Q12HR [facility] Last Admin: 04/25/17 09:33 Dose: 40 mg Propofol (Diprivan) 1,000 mg IV INF PRN; Protocol PRN Reason: TO ACHIEVE SCHNEIDER SCORE 2-3 Stop: 05/22/17 17:48 Last Admin: 04/25/17 06:19 Dose: 1,000 mg Sodium Chloride (Flush - Normal Saline) 10 ml IVF Q12HR ANA Last Admin: 04/25/17 09:33 Dose: 10 ml Sodium Chloride (Flush - Normal Saline) 10 ml IVF PRN PRN PRN Reason: Saline Flush
[2017-04-25] MEDS: Acetaminophen 325 MG TAB PO PRN ×2 (16:25→22:25)
[2017-04-25] MEDS: Diltiazem HCl 125 MG, Admixture Fee 1 EACH in Sodium Chloride 0.9% 100 ML IVPB SCH (17:42)
--- NOTE | 2017-04-25 18:06 | PRG ---
DATE OF SERVICE: 04/25/2017 SUBJECTIVE: The patient was unable to contribute to interviewing due to being on mechanical ventilat ion and sedated. OBJECTIVE: VITAL SIGNS: Temperature 98.8, pulse 80, blood pressure 102/83, satting 100% on 23% FiO2 via ventila tion support. GENERAL: Patient in no acute distress on mechanical ventilation and sedated. CARDIOVASCULAR: Irregularly irregular rhythm with no discernible murmurs, gallops, or rubs. RESPIRATORY: Coarse breath sounds heard in all lung lewis. ABDOMEN: Normoactive bowel sounds, soft, nontender, nondistended. LABORATORY DATA: CBC with a white blood cell count of 3.7, hemoglobin 9.7, hematocrit 30.2, and plat elets 231. ASSESSMENT: Patient is a 66-year-old -Citizen Of The [place] male presenting with acute GI bleed secondary to gastroesophageal junction ulceration. RECOMMENDATIONS: 1. We will continue to trend H&H and transfuse as necessary to maintain an H&H of 7/21. 2. We would continue PPI 40 mg b.i.d. 3. Continue to monitor clinically for signs of hematochezia or melena. His BUN is indicative of an active GI bleed. We will continue to follow. Please call with any questions.
[2017-04-26] MEDS: Piperacillin/Tazobactam 2.25 GM in Sodium Chloride 0.9% 100 ML IVPB SCH ×4 (04:58→23:09)
[2017-04-26 05:08] LABS: Anion Gap 11 mmol/L (10-20); BUN (Urea Nitrogen) 65 mg/dL (8.4-25.7); Calc. Creatinine Clearance 52 mL/min (70-130); Calcium 8.2 mg/dL (7.8-10.44); Carbon Dioxide 30 mmol/L (23-31); Chloride 114 mmol/L (98-107); Estimated GFR-MDRD 45; Glucose 137 mg/dL (80-115); Potassium 3.1 mmol/L (3.5-5.1); Sodium 152 mmol/L (136-145)
[2017-04-26] MEDS: Propofol 1,000 MG/100 ML VIAL IV PRN ×2 (05:15→15:04)
[2017-04-26 05:30] LABS: Band 17 % (5-11); Hemoglobin 10.9 g/dL (14.0-18.0); Lymphocytes 5 % (21-51); MDiff Complete? YES; Macrocytosis SLIGHT = 6-15 cells (100X) (0-5/hpf); Mean Corpuscular HGB CONC 32.3 g/dL (32.0-36.0); Mean Corpuscular Hemoglobin 30.5 pg (27.0-31.0); Mean Corpuscular Volume 94.5 fl (80.0-94.0); Mean Platelet Volume 7.4 fL (7.4-10.4); Metamyelocyte 1 % (0-0); Monocytes 1 % (0-10); Neutrophil 76 % (42-75); PLT Morphology Comment Appears Decreased; Platelet Count 47 thou/uL (130-400); RBC Distribution Width 20.1 % (11.5-14.5); Red Blood Cell (RBC) Count 3.59 mill/uL (4.70-6.10); White Blood Cell (WBC) Count 9.9 thou/uL (4.8-10.8)
[2017-04-26 07:48] LABS: Actual Bicarbonate (HCO3a) 27.4 mEq/L (22-26); Base Excess (BEa) 3.1 mEq/L (0 (+/-) 2.5); CO2 Tension 40.3 mmHg (35.0-45.0); Hematocrit-ABG 32.3 % (42.0-52.0); Hemoglobin (Hb) 10.7 g/dL (14.0-18.0); O2 Tension (PaO2) 67.3 mmHg (80.0-100.0); pH, Arterial 7.45 (7.35-7.45)
[2017-04-26 07:49] LABS: ALV-art Gradient 165.525 (0-20); Calcium, Ionized 1.2 mmol/L (1.12-1.30); Puncture Site RR
[2017-04-26] MEDS: Furosemide 40 MG/4 ML VIAL SLOW IVP SCH (09:28)
[2017-04-26] MEDS: Potassium Chloride 20 MEQ in Premix Bag 1 BAG IVPB SCH ×2 (09:28→10:38)
[2017-04-26] MEDS: Pantoprazole 40 MG VIAL IVP SCH ×2 (09:28→22:23)
--- NOTE | 2017-04-26 11:14 | PDOC.PN ---
- Subjective Encounter Start Date: 04/26/17 Encounter Start Time: 11:13 Patient seen and examined, no new issues, remains intubated - Objective Resuscitation Status: Resuscitation Status FULL:Full Resuscitation Vital Signs & Weight: Vital Signs (12 hours) Pulse Resp BP 04/26/17 10:23 104 H 102/71 04/26/17 10:00 33 H 04/26/17 08:00 17 04/26/17 07:26 103 H 105/84 04/26/17 06:00 19 04/26/17 04:00 36 H 04/26/17 02:39 109 H 04/26/17 02:38 105 H 25 H 04/26/17 02:00 33 H 04/26/17 00:00 20 Weight Admit Weight 206 lb Weight 206 lb 5.643 oz Most Recent Monitor Data Heart Rate from ECG 103 NIBP 102/71 NIBP BP-Mean 87 Respiration from ECG 20 SpO2 91 I&O: 04/25/17 04/26/17 04/27/17 06:59 06:59 06:59 Intake Total 2712.3 2428.8 90 Output Total 3230 2460 365 Balance -517.7 -31.2 -275 Result Diagrams: 04/26/17 04:30 04/26/17 04:30 Phys Exam - Physical Examination Constitutional: NAD HEENT: PERRLA, moist MMs Neck: no nodes, no JVD coarse breathe sounds Cardiovascular: RRR 2/6 YAMILE appreciated Gastrointestinal: soft, non-tender Musculoskeletal: pulses present B/L LE in bandages Dx/Plan (1) Hypokalemia Code(s): E87.6 - HYPOKALEMIA Status: Acute (2) ALEXSANDRA (acute kidney injury) Code(s): N17.9 - ACUTE KIDNEY FAILURE, UNSPECIFIED Status: Acute (3) GI bleed Code(s): K92.2 - GASTROINTESTINAL HEMORRHAGE, UNSPECIFIED Status: Acute (4) DM2 (diabetes mellitus, type 2) Status: Chronic (5) Atrial fibrillation with RVR Code(s): I48.91 - UNSPECIFIED ATRIAL FIBRILLATION Status: Acute Comment: rate controlled - On Coreg, ACEI restarted (6) Physical deconditioning Code(s): R53.81 - OTHER MALAISE Status: Acute - Plan * No GI bleeding for today * monitor H&H * K being replaced, will obtain repeat K in the evening and in AM * vent management per pulmonary * BP stable * no family at bedside
[2017-04-26 13:01] LABS: Hemoglobin 11.1 g/dL (14.0-18.0)
--- NOTE | 2017-04-26 14:39 | PRG ---
DATE OF SERVICE: 04/26/2017 SUBJECTIVE: Fatou Rivero is sedated. PHYSICAL EXAMINATION: VITAL SIGNS: Pulse 95, blood pressure 102/71, sats 90%, respirations 20-30. GENERAL: He opens his eyes. Appears to be encephalopathic. I's and O's, 2428 in and 2460 out. CHEST: Extensive rhonchi and crackles. CARDIAC: Sinus tachycardia. ABDOMEN: Soft. LABORATORY DATA: White count 9,000, hemoglobin and hematocrit 9 and 30 , platelet count low 47, pO2 of 67, pCO2 of 40, pH 7.45, rate of 7, 40%. LABORATORY DATA: Sodium 152 and creatinine 0.8. Respiratory culture is growing Pseudomonas. IMPRESSION: 1. Status post aspiration. 2. Gastrointestinal bleed, encephalopathy. He is to go for repeat EGD, hold extubation until GI has reassessed him. Continue neb treatments. Alexis goodrich is on Zosyn antibiotics, which is sensitive to his present Pseudomonas and Enterobacter coverage, w elizabet I was continued. We will start on diuretics today. I will watch his kidney function. Marginal sodium is 152, he is dry. I would avoid excessive diuretics. One-half hour critical care time.
[2017-04-26 16:21] LABS: Potassium 3.1 mmol/L (3.5-5.1)
--- NOTE | 2017-04-26 19:12 | CON ---
DATE OF CONSULTATION: 04/26/2017 REASON FOR CONSULTATION: Atrial fibrillation. PRIMARY AUTO REBUILDER: Dr. Shelby Ackerman. HISTORY OF PRESENT ILLNESS: Mr. Rivero is an unfortunate 66-year-old gentleman who recently presented with GI bleed. From a cardiac standpoint, he underwent coronary angiography by Dr. Shelby Ackerman on 07/20/2016 and was not found to have significant coronary artery disease. He underwent implantation of AICD on 03/17/[address] Perdomo. He recently presented with hematemesis and elevated LFTs. He do es have a history of LVEF of 5% to 10%. The patient is currently intubated and unable to give histor y. Family is not available. PAST MEDICAL HISTORY: Nonischemic cardiomyopathy, ICD placement, hypertension, hyperlipidemia, subdu ral hematoma, atrial flutter, hernia repair. FAMILY HISTORY: Negative for CAD. SOCIAL HISTORY: No current tobacco or alcohol use. ALLERGIES: None. REVIEW OF SYSTEMS: Unobtainable. PHYSICAL EXAMINATION: GENERAL: He is currently intubated and sedated. VITAL SIGNS: On 04/24/2017, blood pressure 110/70, pulse 130, respirations 20. NEUROLOGIC: The patient is alert and oriented times 3 with no focal neurologic deficits. HEENT: Sclerae without icterus. Mouth has moist mucous membranes with normal pallor. NECK: No JVD. Carotid upstroke brisk. No bruits bilaterally. LUNGS: Clear to auscultation with unlabored respirations. BACK: No scoliosis or kyphosis. CARDIAC: Irregularly irregular. ABDOMEN: Soft, nontender, nondistended. No peritoneal signs present. No hepatosplenomegaly. No abnormal striae. EXTREMITIES: 2+ femoral and 2+ dorsalis pedis pulses. No cyanosis, clubbing, or edema. SKIN: No gross abnormalities. PERTINENT LABORATORY DATA: Hemoglobin 11.2, creatinine 2.12. IMPRESSION: 1. Atrial fibrillation with rapid ventricular response. 2. Nonischemic cardiomyopathy. 3. Status post ICD. 4. Gastrointestinal bleed. RECOMMENDATIONS: 1. Add low dose Cardizem for rate control. 2. Give 0.25 mg IV digoxin. 3. Continue ICU care and vent support.
--- NOTE | 2017-04-26 21:19 | PRG ---
DATE OF SERVICE: 04/26/2017 SUBJECTIVE: Overnight or early this morning, the patient had a bout of bright red/maroon colored bow el movement concerning for GI blood loss as noted by nursing staff. Repeat bowel movement later in did not show this repeated episode of bleeding. There was no derangement in the patient's hea rt rate or blood pressure during this time. No further events or problems overnight. The patient alford s continued to be sedated and is on mechanical ventilation making any interviewing impossible. OBJECTIVE: VITAL SIGNS: Temperature 98.1, pulse 116, blood pressure 115/78, respiratory rate 15, satting 96% on mechanical ventilation. GENERAL: The patient in no acute distress on mechanical ventilation and sedation. CARDIOVASCULAR: Irregularly irregular rhythm with no discernible murmurs, gallops, or rubs. RESPIRATORY: Coarse breath sounds heard in all lung lewis consistent with mechanical ventilation. ABDOMEN: Normoactive bowel sounds, soft, nontender, nondistended. LABORATORY DATA: CBC with a white blood cell count of 9.9, hemoglobin 10.9, hematocrit 33.9, platele ts 47. Repeat CBC at 12:38 p.m., showed a hemoglobin of 11.1 and hematocrit of 35.2. ASSESSMENT AND PLAN: The patient is a 66-year-old -[place] male presenting with acute GI ble ed secondary to gastroesophageal junction ulceration. RECOMMENDATIONS: 1. Would continue to trend H and H, and transfuse as necessary to maintain an H and H of 7/21. 2. Would continue to monitor clinically for signs of active bleeding including hematochezia or melen a. 3. Would continue PPI 40 mg b.i.d. 4. If the patient does have a drop in his H and H, would have a low threshold to perform repeat uppe r endoscopy for evaluation. We will continue to follow. Please call with any questions.
[2017-04-26] MEDS: Acetaminophen 325 MG TAB PO PRN (22:23)
[2017-04-26] MEDS: Morphine 4 MG/ML VIAL IV PRN (22:30)
[2017-04-27] MEDS: Piperacillin/Tazobactam 2.25 GM in Sodium Chloride 0.9% 100 ML IVPB SCH ×4 (06:33→23:18)
[2017-04-27] MEDS: Propofol 1,000 MG/100 ML VIAL IV PRN ×2 (06:33→18:55)
[2017-04-27 06:51] LABS: Anion Gap 12 mmol/L (10-20); BUN (Urea Nitrogen) 47 mg/dL (8.4-25.7); Calc. Creatinine Clearance 62 mL/min (70-130); Calcium 8.1 mg/dL (7.8-10.44); Carbon Dioxide 30 mmol/L (23-31); Chloride 116 mmol/L (98-107); Estimated GFR-MDRD 56; Glucose 102 mg/dL (80-115); Sodium 155 mmol/L (136-145)
[2017-04-27 06:52] LABS: Band 43 % (5-11); Hemoglobin 11.6 g/dL (14.0-18.0); Lymphocytes 8 % (21-51); MDiff Complete? YES; Mean Corpuscular HGB CONC 31.1 g/dL (32.0-36.0); Mean Corpuscular Hemoglobin 29.5 pg (27.0-31.0); Mean Corpuscular Volume 94.9 fl (80.0-94.0); Mean Platelet Volume 6.7 fL (7.4-10.4); Neutrophil 49 % (42-75); PLT Morphology Comment Appears Decreased; Platelet Count 49 thou/uL (130-400); RBC Distribution Width 20.2 % (11.5-14.5); Red Blood Cell (RBC) Count 3.91 mill/uL (4.70-6.10); Target Cells MODERATE= 6-15 cells (100X) (0-1/hpf); White Blood Cell (WBC) Count 12.9 thou/uL (4.8-10.8)
[2017-04-27 06:55] LABS: Potassium 2.9 mmol/L (3.5-5.1)
[2017-04-27] MEDS ORDERED: Potassium Chloride 40 MEQ in Sodium Chloride 0.9% 250 ML 250 ML IVPB SCH (08:00)
[2017-04-27] MEDS: Pantoprazole 40 MG VIAL IVP SCH ×2 (09:04→22:01)
[2017-04-27] MEDS: Furosemide 40 MG/4 ML VIAL SLOW IVP SCH (09:04)
[2017-04-27] MEDS ORDERED: Digoxin 0.5 MG/2 ML AMP SLOW IVP SCH (09:30)
--- NOTE | 2017-04-27 09:35 | PRG ---
DATE OF SERVICE: 04/27/2017 HISTORY: Mr. Rivero is intubated on ventilator currently. Plan is to do an endoscopy later, sedated now. PHYSICAL EXAMINATION: VITAL SIGNS: The blood pressure 130/70, pulse 100-110 and irregular. LUNGS: Clear. CARDIAC: Irregular, irregular. ABDOMEN: Soft, nontender. EXTREMITIES: No edema. ASSESSMENT: 1. Status post gastrointestinal bleed. Hemoglobin is now controlled. 2. Hemoglobin 11.6. 3. Cardiomyopathy. 4. Chronic atrial fibrillation. PLAN: 1. Try to wean off the ventilator. 2. Resume lisinopril, carvedilol, and torsemide. 3. Add digoxin. We will continue to follow with you.
[2017-04-27 12:28] LABS: Potassium 3.2 mmol/L (3.5-5.1)
[2017-04-27] MEDS ORDERED: FLU VACC TS2017-18 (>65YR) 0.5 ML SYRINGE IM ONE (12:30)
[2017-04-27] MEDS: Diltiazem HCl 125 MG, Admixture Fee 1 EACH in Sodium Chloride 0.9% 100 ML IVPB SCH (13:08)
[2017-04-27] MEDS: Morphine 4 MG/ML VIAL IV PRN ×2 (14:40→17:22)
--- NOTE | 2017-04-27 14:48 | PDOC.PN ---
- Subjective Encounter Start Date: 04/27/17 Encounter Start Time: 11:00 Pt seen for followup for GI bleed. Intubated, unable to provide ROS. - Objective Resuscitation Status: Resuscitation Status FULL:Full Resuscitation MAR Reviewed: Yes Vital Signs & Weight: Vital Signs (12 hours) Temp Pulse Resp BP Pulse Ox 04/27/17 14:00 24 H 04/27/17 12:35 80 04/27/17 12:00 97.8 F 20 04/27/17 11:51 80 123/74 04/27/17 11:47 80 34 H 91 L 04/27/17 10:00 19 04/27/17 08:00 98.3 F 83 19 92 L 04/27/17 07:05 110 H 135/84 04/27/17 07:04 102 H 21 H 94 L 04/27/17 06:00 26 H 04/27/17 04:00 99.3 F 29 H Weight Admit Weight 206 lb Weight 206 lb 5.643 oz Most Recent Monitor Data Heart Rate from ECG 102 NIBP 130/74 NIBP BP-Mean 87 Respiration from ECG 20 SpO2 90 I&O: 04/26/17 04/27/17 04/28/17 06:59 06:59 06:59 Intake Total 2428.8 1872 Output Total 2460 2255 500 Balance -31.2 -383 -500 Result Diagrams: 04/27/17 05:55 04/27/17 11:55 EKG Reviewed by me: Yes (Tele: vicki rust) Phys Exam - Physical Examination Intubated HEENT: moist MMs ETT Neck: no nodes Respiratory: clear to auscultation bilateral Cardiovascular: RRR Gastrointestinal: soft Musculoskeletal: pulses present Neurological: moves all 4 limbs Deviation from normal: James leg wounds Dx/Plan (1) GI bleed Code(s): K92.2 - GASTROINTESTINAL HEMORRHAGE, UNSPECIFIED Status: Acute (2) Esophagogastric ulcer Code(s): K25.9 - GASTRIC ULCER, UNSP ACUTE OR CHRONIC, W/O HEMOR OR PERF Status: Acute (3) ALEXSANDRA (acute kidney injury) Code(s): N17.9 - ACUTE KIDNEY FAILURE, UNSPECIFIED Status: Acute (4) Elevated troponin Code(s): R74.8 - ABNORMAL LEVELS OF OTHER SERUM ENZYMES Status: Acute (5) DM2 (diabetes mellitus, type 2) Status: Chronic (6) Dyslipidemia Code(s): E78.5 - HYPERLIPIDEMIA, UNSPECIFIED Status: Chronic (7) Gout Code(s): M10.9 - GOUT, UNSPECIFIED Status: Chronic (8) Hypertension Code(s): I10 - ESSENTIAL (PRIMARY) HYPERTENSION Status: Chronic Qualifiers: Hypertension type: unspecified Qualified Code(s): I10 - Essential (primary ) hypertension - Plan continue antibiotics * . Hemoglobin stable. Creatinine improving. Continue PPI. Continue IV Zosyn. Review of Systems - Medications/Allergies Allergies/Adverse Reactions: Allergies Allergy/AdvReac Type Severity Reaction Status Date / Time No Known Allergies Allergy Verified 04/22/17 20:19 Medications: Current Medications Acetaminophen (Tylenol) 325 mg PO Q6H PRN PRN Reason: Headache/Fever or Pain Last Admin: 04/26/17 22:23 Dose: 325 mg Albuterol/Ipratropium (Duoneb) 3 ml NEB [id number] ANA Last Admin: 04/27/17 11:47 Dose: 3 ml Digoxin (Lanoxin) 0.125 mg SLOW IVP DAILY ANA Furosemide (Lasix) 40 mg SLOW IVP DAILY ANA Last Admin: 04/27/17 09:04 Dose: 40 mg Fentanyl Citrate 2,000 mcg/ (Sodium Chloride) 100 mls @ 0 mls/hr IV INF ANA; Per Protocol PRN Reason: Protocol Stop: 05/22/17 17:48 Last Admin: 04/23/17 17:45 Dose: 100 mls Fentanyl Citrate (Fentanyl Bolus) 250 mls @ 0 mls/hr IVPB PRN PRN; As Directed PRN Reason: Breakthrough pain Stop: 05/22/17 17:48 Piperacillin Sod/Tazobactam (Sod 2.25 gm/ Sodium Chloride) 100 mls @ 200 mls/ hr IVPB Q6HR ANA Last Admin: 04/27/17 12:35 Dose: 100 mls Diltiazem HCl 125 mg/Miscellaneous Medication 1 each/ Sodium Chloride 125 mls @ 2.5 mls/hr IVPB INF ANA PRN Reason: Protocol Last Admin: 04/27/17 13:08 Dose: 125 mls Lactulose (Lactulose) 30 gm PO DAILY ANA Last Admin: 04/27/17 09:04 Dose: 30 gm Morphine Sulfate (Morphine) 2 mg IV Q6H PRN PRN Reason: Mild-Moderate Pain (1-5) Pantoprazole Sodium (Protonix) 40 mg IVP Q12HR [facility] Last Admin: 04/27/17 09:04 Dose: 40 mg Potassium Chloride (Klor-Con) 40 meq PO Q4H [facility] Stop: 04/27/17 18:46 Propofol (Diprivan) 1,000 mg IV INF PRN; Protocol PRN Reason: TO ACHIEVE SCHNEIDER SCORE 2-3 Stop: 05/22/17 17:48 Last Admin: 04/27/17 06:33 Dose: 1,000 mg Sodium Chloride (Flush - Normal Saline) 10 ml IVF Q12HR [facility] Last Admin: 04/27/17 09:06 Dose: 10 ml Sodium Chloride (Flush - Normal Saline) 10 ml IVF PRN PRN PRN Reason: Saline Flush
--- NOTE | 2017-04-27 14:59 | PRG ---
DATE OF SERVICE: 04/27/2017 SERVICE: Pulmonary Medicine. INTERVAL HISTORY: The patient is doing fine from a respiratory standpoint. He is breathing comforta hang on mechanical ventilation. We will give him a sedation holiday and put him on spontaneous breath ing trial. He breathes quite well with that. Otherwise, there has been no interval change to his co ndition. PHYSICAL EXAMINATION: VITAL SIGNS: Afebrile currently with T-max on the 13th of 101.4. Pulse 102, blood pressure 130/74, respirations 20, saturation 91% on 40% FiO2 and PEEP of 5. GENERAL: Patient is awake, alert, in no apparent distress. LUNGS: Decent air entry. Rhonchi are present, but clear with cough. No prolonged expiratory phase or wheezing is appreciated. HEART: Normal rate and regular. ABDOMEN: Soft, nontender, nondistended. Bowel sounds are positive. MUSCULOSKELETAL: No cyanosis or clubbing. There is diffuse pitting throughout. : Moody catheter in place. NEUROLOGIC: Grossly nonfocal. LABORATORY DATA: WBC 12.9 and up trending, hemoglobin 11.6, platelets 49,000. Band count has increa sed to 43%. INR 2.3. Potassium 3.2, creatinine downtrend to 1.5, BUN 47. Sodium 155. Multiple thi ngs are growing from the sputum including Pseudomonas aeruginosa, Enterobacter, and Staph aureus. Th e Staph aureus was sensitive to vancomycin, Pseudomonas, and Enterobacter and essentially pansensitiv e as well. ASSESSMENT: 1. Acute hypoxic respiratory failure, slowly improving. 2. Acute on chronic systolic heart failure. 3. Chronic atrial fibrillation. 4. Acute blood loss anemia, stable. 5. Peptic ulcer disease. 6. Community-acquired pneumonia. PLAN: We will continue antibiotics and nebulized medications. He will need additional free water an d will be aggressively replaced with potassium. We do have control of his volume status. He likely tolerate extubation just fine shortly after we clarify whether or not an EGD needs to be repeated. [facility] will continue to follow while he remains in this location. CRITICAL CARE TIME: 30 minutes.
[2017-04-27] MEDS ORDERED: Potassium Chloride 40 MEQ in Sodium Chloride 0.9% 500 ML IVPB SCH (15:15)
[2017-04-27] MEDS: Acetaminophen 325 MG TAB PO PRN (22:01)
--- NOTE | 2017-04-27 23:33 | OP ---
PREOPERATIVE DIAGNOSES: 1. Gastrointestinal hemorrhage. 2. Coagulopathy. 3. Severe congestive heart failure. 4. Status post endoscopy on 04/22/2017 with large distal esophageal ulcer visible at vessel requirin g cautery to control bleeding, no biopsies were taken at that time, concern was that the ulcer possi hang was malignant. Plan today is for repeat endoscopy to document improvement in the ulcer and chao fy that there is no risk of bleeding, consider biopsies for malignancy before. The patient is extuba mehul, which will be tomorrow. ANESTHESIA: TIVA. The patient is intubated in the ICU. POSTOPERATIVE DIAGNOSES: 1. Large circumferential ulcer about 3 or 4 cm above the gastroesophageal junction, visible vessels have been ablated, not resolving. There were some signs of healing from the endoscopy 5 days ago. 2. Hiatal hernia, no evidence of Tiffany-Mckeon tear, ulcers, erosions. Stomach and duodenum were no rmal. Ulcers in the duodenal bulb were healed. 3. Biopsies taken from the esophageal ulcer. PROCEDURE IN DETAIL: After the patient was informed of the risks, benefits, possible complications o f endoscopy including perforation, bleeding, infection, aspiration, the patient gave informed consent . The endoscope was advanced through the esophagus, stomach, and second and third portion of the duo denum. Previously noted duodenal ulcers were healed. The stomach was normal in . There was no evidence of blood in the esophagus, stomach, or duodenum. The distal esophagus was again notable fo r ulcer circumferentially, this has improved but not as deep as it was previously visible vessels wer e gone. Biopsies were taken from the marginal ulcer base to rule out other process. This seems to b e all reflux related. The scope was removed. The patient tolerated the procedure well with no compl ications. The patient is stable for extubation tomorrow if there are no untoward events overnight.
[2017-04-28] MEDS: Piperacillin/Tazobactam 2.25 GM in Sodium Chloride 0.9% 100 ML IVPB SCH ×4 (06:17→23:59)
[2017-04-28 06:39] LABS: Anion Gap 14 mmol/L (10-20); BUN (Urea Nitrogen) 54 mg/dL (8.4-25.7); Calc. Creatinine Clearance 66 mL/min (70-130); Calcium 8.3 mg/dL (7.8-10.44); Carbon Dioxide 30 mmol/L (23-31); Chloride 119 mmol/L (98-107); Estimated GFR-MDRD 60; Glucose 111 mg/dL (80-115); Magnesium 1.6 mg/dL (1.6-2.6); Potassium 3.8 mmol/L (3.5-5.1); Sodium 159 mmol/L (136-145)
[2017-04-28] MEDS ORDERED: Magnesium Sulfate 4 GM in Sodium Chloride 0.9% 250 ML 250 ML IVPB SCH (07:00)
[2017-04-28 07:01] LABS: #Lymphocytes 0.9 thou/uL (1.20-3.40); #Monocytes 0.3 thou/uL (0.11-0.59); #Neutrophils 10.8 thou/uL (1.40-6.50); %Lymphocytes 7.3 % (21.0-51.0); %Monocytes 2.2 % (0.0-10.0); %Neutrophils 90.5 % (42.0-75.0); Acanthocytes SLIGHT = 1-5 cells (100X) (None Seen); Band 20 % (5-11); Hemoglobin 11.8 g/dL (14.0-18.0); Lymphocytes 9 % (21-51); MDiff Complete? YES; Mean Corpuscular HGB CONC 30.9 g/dL (32.0-36.0); Mean Corpuscular Hemoglobin 29.4 pg (27.0-31.0); Mean Corpuscular Volume 95.3 fl (80.0-94.0); Mean Platelet Volume 7.6 fL (7.4-10.4); Monocytes 1 % (0-10); Neutrophil 70 % (42-75); PLT Morphology Comment Appears Decreased; Platelet Count 51 thou/uL (130-400); Polychromasia SLIGHT = 2-3 cells (100X) (0-2/hpf); RBC Distribution Width 20.6 % (11.5-14.5); Red Blood Cell (RBC) Count 4.01 mill/uL (4.70-6.10); Schistocytes SLIGHT = 2-5 cells (100X) (0-1/hpf); Target Cells MODERATE= 6-15 cells (100X) (0-1/hpf); White Blood Cell (WBC) Count 11.9 thou/uL (4.8-10.8)
--- NOTE | 2017-04-28 08:40 | PRG ---
DATE OF SERVICE: 04/28/2017 SERVICE: Pulmonary Medicine. INTERVAL HISTORY: The patient is doing really well from a respiratory standpoint. He underwent an E GD yesterday and a biopsy was performed of the esophagus. Outside of that, there has been no interva l change to his condition. He is breathing comfortably on a spontaneous breathing trial this morning . He is little agitated mostly from the tube in his throat. Outside of this, there were no overnigh t events. PHYSICAL EXAMINATION: VITAL SIGNS: Afebrile, pulse 104, blood pressure 136/80, respirations 12, saturation 90% on 37% FiO2 and a PEEP of 5. GENERAL: The patient is awake. He is following commands. He is intubated. HEENT: Normocephalic, atraumatic. Sclerae are white, conjunctivae pink. Oral and nasal mucosa is m oist without lesions. LUNGS: Decent air entry. There is no prolonged expiratory phase or wheezing present. HEART: Normal rate, regular. ABDOMEN: Soft, nontender, and nondistended. Bowel sounds are positive. MUSCULOSKELETAL: No cyanosis or clubbing. There is diffuse pitting throughout. GENITOURINARY: Moody catheter in place. NEUROLOGIC: Grossly nonfocal. LABORATORY DATA: WBC 11.9, hemoglobin 11.8, and platelets 70,000. Creatinine 1.41 and BUN 54. Sodi um 159. Basic metabolic profile is otherwise unremarkable. Magnesium 1.6 and potassium 3.8. Sputum is growing Pseudomonas, Enterobacter, and Staphylococcus aureus. IMAGING: Chest x-ray has severely rotated film. The distortion prevents accurate interpretation of the study. ASSESSMENT: 1. Acute hypoxic respiratory failure, improving slowly. 2. Acute on chronic systolic heart failure. 3. Chronic atrial fibrillation. 4. Acute blood loss anemia. 5. Peptic ulcer disease. 6. Community-acquired pneumonia secondary to Pseudomonas and methicillin-sensitive Staphylococcus au reus. PLAN: We will continue our antibiotics and nebulized medication. The patient will undergo spontaneo us breathing trial once he is awake enough. If he meets criteria, extubation will be performed. Oth erwise, supportive measures will be continued. I will give him magnesium and potassium. He will nee d additional free water over the next 24 hours and as we continue to diurese him he remains volume ov erloaded. CRITICAL CARE TIME: 30 minutes.
--- NOTE | 2017-04-28 09:14 | RAD ---
CHEST ONE VIEWS: History: Dyspnea. Intubated. Comparison: 04-23-17 FINDINGS: Cardiac silhouette remains magnified and enlarged. Right pleural fluid has increased. Pulmonary vascu lature is engorged. Bilateral perihilar infiltrates have increased since the previous exam. Lines and tubes appear unchanged in position. IMPRESSION: Interval worsening of pulmonary edema and right pleural fluid. POS: [facility]
[2017-04-28] MEDS: Pantoprazole 40 MG VIAL IVP SCH ×2 (09:43→20:40)
[2017-04-28] MEDS: Digoxin 0.5 MG/2 ML AMP SLOW IVP SCH (09:44)
[2017-04-28] MEDS: Furosemide 40 MG/4 ML VIAL SLOW IVP SCH (09:44)
[2017-04-28] MEDS: Dextrose 5% in Water 1,000 ML IV SCH ×2 (09:47→20:41)
[2017-04-28] MEDS ORDERED: Digoxin 0.5 MG/2 ML AMP SLOW IVP SCH (11:30)
[2017-04-28] MEDS ORDERED: Furosemide 100 MG/10 ML VIAL SLOW IVP SCH (11:30)
--- NOTE | 2017-04-28 11:37 | PRG ---
DATE OF SERVICE: 04/28/2017 SUBJECTIVE: Mr. Rivero is extubated. He is struggling to breathe now. He is very uncomfortable. He is very short of breath. PHYSICAL EXAMINATION: VITAL SIGNS: Blood pressure 130/90, pulse 110, it is irregular to atrial fibrillation. LUNGS: Diffuse rales and rhonchi. CARDIAC: Tachycardic, respiratory rate is increased. EXTREMITIES: Cool, but not cold. IMAGING STUDIES: Chest x-ray shows severe congestive heart failure. ASSESSMENT: 1. Severe congestive heart failure. 2. Atrial arrhythmias. PLAN: 1. We will give additional dose of furosemide. 2. Additional Digoxin. 3. Suspect may need to be reintubated 4. Discussed code status with the patient's . He does not wish to have chest compressions done.
[2017-04-28] MEDS ORDERED: Potassium Chloride 40 MEQ in Sodium Chloride 0.9% 250 ML 250 ML IVPB SCH (12:00)
[2017-04-28 12:09] LABS: CO2 Tension 39.6 mmHg (35.0-45.0); pH, Arterial 7.44 (7.35-7.45)
[2017-04-28 12:10] LABS: Actual Bicarbonate (HCO3a) 26.2 mEq/L (22-26); O2 Tension (PaO2) 45.9 mmHg (80.0-100.0)
[2017-04-28 12:11] LABS: Calcium, Ionized 1.2 mmol/L (1.12-1.30); Puncture Site LRA
--- NOTE | 2017-04-28 13:21 | PDOC.PN ---
- Subjective Encounter Start Date: 04/28/17 Encounter Start Time: 10:30 Pt seen for followup re: GI bleed. Still intubated, but alert. Not answering questions, unable to complete ROS. - Objective Resuscitation Status: Resuscitation Status FULL:Full Resuscitation MAR Reviewed: Yes Vital Signs & Weight: Vital Signs (12 hours) Temp Pulse Resp BP Pulse Ox 04/28/17 12:38 109 H 04/28/17 12:00 98.2 F 04/28/17 11:13 109 H 40 H 87 L 04/28/17 09:44 102 H 04/28/17 08:37 102 H 41 H 85 L 04/28/17 08:33 104 H 41 H 85 L 04/28/17 08:00 98.6 F 28 H 04/28/17 07:58 98.6 F 81 22 H 97 04/28/17 07:00 98.6 F 04/28/17 06:00 43 H 04/28/17 04:00 98.4 F 74 22 H 123/75 04/28/17 02:36 74 31 H 93 L 04/28/17 02:00 30 H Weight Admit Weight 206 lb Weight 206 lb 5.643 oz Most Recent Monitor Data Heart Rate from ECG 109 NIBP 121/71 NIBP BP-Mean 88 Respiration from ECG 8 SpO2 94 I&O: 04/27/17 04/28/17 04/29/17 06:59 06:59 06:59 Intake Total 1872 1516 100 Output Total 2255 1885 1100 Balance -383 -369 -1000 Result Diagrams: 04/28/17 06:00 04/28/17 06:00 EKG Reviewed by me: Yes (Tele: vicki rust) Phys Exam - Physical Examination Intubated HEENT: moist MMs ETT Neck: no nodes Respiratory: clear to auscultation bilateral Cardiovascular: irregular Gastrointestinal: soft Musculoskeletal: edema present Neurological: moves all 4 limbs Deviation from normal: leg wounds Dx/Plan (1) GI bleed Code(s): K92.2 - GASTROINTESTINAL HEMORRHAGE, UNSPECIFIED Status: Acute (2) CAP (community acquired pneumonia) Code(s): J18.9 - PNEUMONIA, UNSPECIFIED ORGANISM Status: Acute (3) Esophagogastric ulcer Code(s): K25.9 - GASTRIC ULCER, UNSP ACUTE OR CHRONIC, W/O HEMOR OR PERF Status: Acute (4) ALEXSANDRA (acute kidney injury) Code(s): N17.9 - ACUTE KIDNEY FAILURE, UNSPECIFIED Status: Acute (5) Elevated troponin Code(s): R74.8 - ABNORMAL LEVELS OF OTHER SERUM ENZYMES Status: Acute (6) DM2 (diabetes mellitus, type 2) Status: Chronic (7) Dyslipidemia Code(s): E78.5 - HYPERLIPIDEMIA, UNSPECIFIED Status: Chronic (8) Gout Code(s): M10.9 - GOUT, UNSPECIFIED Status: Chronic (9) Hypertension Code(s): I10 - ESSENTIAL (PRIMARY) HYPERTENSION Status: Chronic Qualifiers: Hypertension type: unspecified Qualified Code(s): I10 - Essential (primary ) hypertension - Plan continue antibiotics * .s/p repeat EGD yesterday. Continue IV Zosyn. Continue diuretics, digoxin. Review of Systems - Medications/Allergies Allergies/Adverse Reactions: Allergies Allergy/AdvReac Type Severity Reaction Status Date / Time No Known Allergies Allergy Verified 04/22/17 20:19 Medications: Current Medications Acetaminophen (Tylenol) 325 mg PO Q6H PRN PRN Reason: Headache/Fever or Pain Last Admin: 04/27/17 22:01 Dose: 325 mg Albuterol/Ipratropium (Duoneb) 3 ml NEB [id number] [facility] Last Admin: 04/28/17 11:13 Dose: 3 ml Digoxin (Lanoxin) 0.125 mg SLOW IVP DAILY [facility] Last Admin: 04/28/17 09:44 Dose: 0.125 mg Digoxin (Lanoxin) 0.125 mg SLOW IVP NOW [facility] Stop: 04/28/17 14:00 Last Admin: 04/28/17 12:38 Dose: 0.125 mg Furosemide (Lasix) 40 mg SLOW IVP DAILY [facility] Last Admin: 04/28/17 09:44 Dose: 40 mg Furosemide (Lasix) 40 mg SLOW IVP 1500 [facility] Stop: 04/28/17 17:00 Furosemide (Lasix) 80 mg SLOW IVP NOW [facility] Stop: 04/28/17 14:00 Last Admin: 04/28/17 12:42 Dose: 80 mg Fentanyl Citrate 2,000 mcg/ (Sodium Chloride) 100 mls @ 0 mls/hr IV INF ANA; Per Protocol PRN Reason: Protocol Stop: 05/22/17 17:48 Last Admin: 04/23/17 17:45 Dose: 100 mls Fentanyl Citrate (Fentanyl Bolus) 250 mls @ 0 mls/hr IVPB PRN PRN; As Directed PRN Reason: Breakthrough pain Stop: 05/22/17 17:48 Piperacillin Sod/Tazobactam (Sod 2.25 gm/ Sodium Chloride) 100 mls @ 200 mls/ hr IVPB Q6HR [facility] Last Admin: 04/28/17 11:13 Dose: 100 mls Diltiazem HCl 125 mg/Miscellaneous Medication 1 each/ Sodium Chloride 125 mls @ 2.5 mls/hr IVPB INF ANA PRN Reason: Protocol Last Admin: 04/27/17 13:08 Dose: 125 mls Dextrose/Water (D5w) 1,000 mls @ 75 mls/hr IV .[id number] [facility] Last Admin: 04/28/17 09:47 Dose: 1,000 mls Potassium Chloride 40 meq/ (Dextrose/Water) 270 mls @ 67.5 mls/hr IVPB 1200 ANA Stop: 04/28/17 15:59 Last Admin: 04/28/17 12:37 Dose: 270 mls Lactulose (Lactulose) 30 gm PO DAILY [facility] Last Admin: 04/28/17 07:40 Dose: 30 gm Morphine Sulfate (Morphine) 2 mg IV Q6H PRN PRN Reason: Mild-Moderate Pain (1-5) Last Admin: 04/27/17 17:22 Dose: 2 mg Pantoprazole Sodium (Protonix) 40 mg IVP Q12HR [facility] Last Admin: 04/28/17 09:43 Dose: 40 mg Propofol (Diprivan) 1,000 mg IV INF PRN; Protocol PRN Reason: TO ACHIEVE SCHNEIDER SCORE 2-3 Stop: 05/22/17 17:48 Last Admin: 04/27/17 18:55 Dose: 1,000 mg Sodium Chloride (Flush - Normal Saline) 10 ml IVF Q12HR [facility] Last Admin: 04/28/17 09:45 Dose: 10 ml Sodium Chloride (Flush - Normal Saline) 10 ml IVF PRN PRN PRN Reason: Saline Flush
[2017-04-28] MEDS: Diltiazem HCl 125 MG, Admixture Fee 1 EACH in Sodium Chloride 0.9% 100 ML IVPB SCH (14:11)
--- NOTE | 2017-04-28 14:13 | PRG ---
DATE OF SERVICE: 04/28/2017 SUBJECTIVE: Mr. Rivero was extubated this morning. He has had no signs of bleeding. He is having di fficulty walking secondary to shortness of breath. ICU staff is considering re-intubating him. Marcio lima deems his family and him presently. OBJECTIVE: VITAL SIGNS: Pulse 109, blood pressure 136/80, O2 sat 87% on 4 liters. LABORATORY STUDIES: White count 11.9, hemoglobin 11.8. ASSESSMENT: Gastrointestinal bleed, resolved. This is related to ulcer in distal esophagus. Biopsi es were taken yesterday. There were no signs of bleeding, and seems to be improving. He is on panto prazole 40 mg IV q.12 hours, and I will continue this until discharge and then go on oral. We will a wait biopsies taken yesterday. At this time, we will follow from a distance. If I can be of any fur ther assistance, please do not hesitate to contact me.
[2017-04-28] MEDS ORDERED: Furosemide 40 MG/4 ML VIAL SLOW IVP SCH (15:00)
[2017-04-29] MEDS: Morphine 4 MG/ML VIAL IV PRN (03:03)
[2017-04-29] MEDS: Piperacillin/Tazobactam 2.25 GM in Sodium Chloride 0.9% 100 ML IVPB SCH ×3 (06:27→17:34)
[2017-04-29 07:03] LABS: Anion Gap 16 mmol/L (10-20); BUN (Urea Nitrogen) 52 mg/dL (8.4-25.7); Band 43 % (5-11); Calc. Creatinine Clearance 62 mL/min (70-130); Calcium 8.5 mg/dL (7.8-10.44); Carbon Dioxide 29 mmol/L (23-31); Chloride 120 mmol/L (98-107); Estimated GFR-MDRD 56; Glucose 96 mg/dL (80-115); Hemoglobin 11.4 g/dL (14.0-18.0); Hypochromia SLIGHT = 6-15 cells (100X) (0-5/hpf); Lymphocytes 2 % (21-51); MDiff Complete? YES; Mean Corpuscular HGB CONC 30.7 g/dL (32.0-36.0); Mean Corpuscular Volume 94.4 fl (80.0-94.0); Mean Platelet Volume 6.6 fL (7.4-10.4); Monocytes 2 % (0-10); Neutrophil 53 % (42-75); PLT Morphology Comment Appears Decreased; Platelet Count 65 thou/uL (130-400); Potassium 3.3 mmol/L (3.5-5.1); RBC Distribution Width 20.5 % (11.5-14.5); Red Blood Cell (RBC) Count 3.94 mill/uL (4.70-6.10); Target Cells SLIGHT = 2-5 cells (100X) (0-1/hpf); Tear Drops SLIGHT = 2-5 cells (100X) (0-1/hpf); White Blood Cell (WBC) Count 11.8 thou/uL (4.8-10.8)
[2017-04-29 07:06] LABS: Digoxin 1.46 ng/mL (0.8-2.0)
[2017-04-29 07:24] LABS: Sodium 162 mmol/L (136-145)
[2017-04-29] MEDS: Furosemide 40 MG/4 ML VIAL SLOW IVP SCH (09:48)
[2017-04-29] MEDS: Digoxin 0.5 MG/2 ML AMP SLOW IVP SCH (09:49)
[2017-04-29] MEDS: Pantoprazole 40 MG VIAL IVP SCH ×2 (09:49→20:55)
[2017-04-29] MEDS: Dextrose 5% in Water 1,000 ML IV SCH ×4 (09:56→22:50)
[2017-04-29] MEDS ORDERED: Dextrose 5% in Water 1,000 ML IV SCH (09:58)
[2017-04-29] MEDS ORDERED: Furosemide 40 MG/4 ML VIAL SLOW IVP SCH ×2 (10:15→16:00)
--- NOTE | 2017-04-29 10:44 | PRG ---
DATE OF SERVICE: 04/29/2017 SERVICE: Pulmonary Medicine INTERVAL HISTORY: The patient is doing really well from a respiratory standpoint. Yesterday, after extubation, his oxygen requirements went up. He was placed on BiPAP overnight. Otherwise, there wer e no respiratory events. Hemodynamically, things have been fairly stable. He has no specific compla ints otherwise. PHYSICAL EXAMINATION: VITAL SIGNS: Afebrile, pulse 74, blood pressure 146/90, respirations 20, saturation 95% on 55% FiO2 delivered via BiPAP. HEENT: Normocephalic, atraumatic. Sclerae are white, conjunctivae pink. Oral mucosa is moist witho ut lesions. LUNGS: Rhonchi and crackles are present bilaterally with no prolonged expiratory phase or wheezing. HEART: Normal rate, regular. ABDOMEN: Soft, nontender, nondistended. Bowel sounds are positive. MUSCULOSKELETAL: No cyanosis or clubbing. There is trace to 1+ pitting throughout the bilateral dep endent regions of his body. LABORATORY DATA: WBC 11.8, hemoglobin 11.4, platelets 65,000. The band count is actually increasing to 43% once again. INR 2.3. Sodium 162, potassium 3.3. Creatinine 1.50. Basic metabolic profile is otherwise unremarkable. Sputum is growing Pseudomonas, Enterobacter and Staph aureus. Blood cult ures negative x1. Urine culture is also unremarkable. IMAGING: Chest x-ray demonstrates interval worsening of pulmonary edema and left-sided pleural effus ion. ASSESSMENT: 1. Acute hypoxic respiratory failure, stable. 2. Acute on chronic systolic heart failure. 3. Chronic atrial fibrillation. 4. Peptic ulcer disease. 5. Acute blood loss anemia. 6. Community-acquired pneumonia secondary to Pseudomonas and methicillin-sensitive Staphylococcus au reus. 7. Pleural effusion. 8. Hypokalemia. 9. Hypernatremia. PLAN: We will need increase our free water. We will continue to diurese him as tolerated in order t o try to get him negative 1-2 liters over the next 24 hours. The Pulmonary Critical Care will contin ue to follow.
--- NOTE | 2017-04-29 11:21 | PRG ---
DATE OF SERVICE: 04/29/2017 SUBJETIVE: Mr. Rivero remains very short of breath. OBJECTIVE: VITAL SIGNS: Blood pressure 137/70, pulse 70. He is got frequent PVCs and some nonsustained VT. LUNGS: Some rhonchi. CARDIAC: Irregular. ABDOMEN: Soft, nontender. EXTREMITIES: There is no edema. LABORATORY DATA: White blood cell count is 11.8, but there is 20 bands. Sodium is very high 162, cr eatinine is 1.5. ASSESSMENT: 1. Severe hypernatremia. 2. Left shift. 3. Respiratory failure. PLAN: 1. Continue furosemide. 2. Continue digoxin. 3. Diltiazem if needed. 4. Free water being given.
[2017-04-29] MEDS: Potassium Chloride 40 MEQ in Sodium Chloride 0.9% 250 ML 250 ML IVPB SCH ×2 (13:35→18:36)
--- NOTE | 2017-04-29 17:04 | PDOC.PN ---
- Subjective Encounter Start Date: 04/29/17 Encounter Start Time: 10:20 Pt seen for followup re: hypernatremia. Mumbling, not answering questions reliably, unable to complete ROS. - Objective Resuscitation Status: Resuscitation Status FULL:Full Resuscitation MAR Reviewed: Yes Vital Signs & Weight: Vital Signs (12 hours) Temp Pulse Resp Pulse Ox 04/29/17 16:00 98.3 F 04/29/17 14:42 107 H 36 H 96 04/29/17 12:06 103 H 33 H 97 04/29/17 12:00 98.6 F 97 04/29/17 09:49 102 H 04/29/17 08:34 74 39 H 98 04/29/17 08:31 99 39 H 95 04/29/17 08:00 98.7 F 94 20 91 L 04/29/17 07:00 98.8 F Weight Admit Weight 206 lb Weight 206 lb 5.643 oz Most Recent Monitor Data Heart Rate from ECG 106 NIBP 111/70 NIBP BP-Mean 85 Respiration from ECG 42 SpO2 90 I&O: 04/28/17 04/29/17 04/30/17 06:59 06:59 06:59 Intake Total 1516 2502 350 Output Total 1885 3380 835 Balance -399 -878 -485 Result Diagrams: 04/29/17 06:00 04/29/17 06:00 EKG Reviewed by me: Yes (Tele: vicki rust) Phys Exam - Physical Examination Constitutional: NAD Dry mucosae Respiratory: clear to auscultation bilateral Cardiovascular: irregular Gastrointestinal: soft Neurological: moves all 4 limbs Psychiatric: normal affect Deviation from normal: leg dressings+ Dx/Plan (1) Hypernatremia Code(s): E87.0 - HYPEROSMOLALITY AND HYPERNATREMIA Status: Acute (2) Hypokalemia Code(s): E87.6 - HYPOKALEMIA Status: Acute (3) GI bleed Code(s): K92.2 - GASTROINTESTINAL HEMORRHAGE, UNSPECIFIED Status: Acute (4) CAP (community acquired pneumonia) Code(s): J18.9 - PNEUMONIA, UNSPECIFIED ORGANISM Status: Acute (5) Esophagogastric ulcer Code(s): K25.9 - GASTRIC ULCER, UNSP ACUTE OR CHRONIC, W/O HEMOR OR PERF Status: Acute (6) ALEXSANDRA (acute kidney injury) Code(s): N17.9 - ACUTE KIDNEY FAILURE, UNSPECIFIED Status: Acute (7) Elevated troponin Code(s): R74.8 - ABNORMAL LEVELS OF OTHER SERUM ENZYMES Status: Acute (8) DM2 (diabetes mellitus, type 2) Status: Chronic (9) Dyslipidemia Code(s): E78.5 - HYPERLIPIDEMIA, UNSPECIFIED Status: Chronic (10) Gout Code(s): M10.9 - GOUT, UNSPECIFIED Status: Chronic (11) Hypertension Code(s): I10 - ESSENTIAL (PRIMARY) HYPERTENSION Status: Chronic Qualifiers: Hypertension type: unspecified Qualified Code(s): I10 - Essential (primary ) hypertension - Plan continue antibiotics, PT/OT * . Continue D5W. Replace potassium. Recheck labs. Continue antibiotics as below. Monitor vital signs, titrate antihypertensives as needed. Review of Systems - Medications/Allergies Allergies/Adverse Reactions: Allergies Allergy/AdvReac Type Severity Reaction Status Date / Time No Known Allergies Allergy Verified 04/22/17 20:19 Medications: Current Medications Acetaminophen (Tylenol) 325 mg PO Q6H PRN PRN Reason: Headache/Fever or Pain Last Admin: 04/27/17 22:01 Dose: 325 mg Albuterol/Ipratropium (Duoneb) 3 ml NEB [id number] [facility] Last Admin: 04/29/17 14:42 Dose: 3 ml Digoxin (Lanoxin) 0.125 mg SLOW IVP DAILY [facility] Last Admin: 04/29/17 09:49 Dose: 0.125 mg Fentanyl (Sublimaze) 25 mcg SLOW IVP Q1H PRN PRN Reason: Pain Furosemide (Lasix) 40 mg SLOW IVP DAILY [facility] Last Admin: 04/29/17 09:48 Dose: 40 mg Furosemide (Lasix) 40 mg SLOW IVP 1600 [facility] Stop: 04/29/17 18:00 Last Admin: 04/29/17 15:51 Dose: 40 mg Piperacillin Sod/Tazobactam (Sod 2.25 gm/ Sodium Chloride) 100 mls @ 200 mls/ hr IVPB Q6HR [facility] Last Admin: 04/29/17 12:22 Dose: 100 mls Diltiazem HCl 125 mg/Miscellaneous Medication 1 each/ Sodium Chloride 125 mls @ 2.5 mls/hr IVPB INF ANA PRN Reason: Protocol Last Admin: 04/28/17 14:11 Dose: 125 mls Dextrose/Water (D5w) 1,000 mls @ 125 mls/hr IV .Q8H [facility] Last Admin: 04/29/17 13:43 Dose: 1,000 mls Potassium Chloride 40 meq/ (Sodium Chloride) 270 mls @ 67.5 mls/hr IVPB Q4H [facility] Stop: 04/29/17 21:59 Last Admin: 04/29/17 13:35 Dose: 270 mls Lactulose (Lactulose) 30 gm PO DAILY [facility] Last Admin: 04/29/17 09:49 Dose: 30 gm Pantoprazole Sodium (Protonix) 40 mg IVP Q12HR [facility] Last Admin: 04/29/17 09:49 Dose: 40 mg Propofol (Diprivan) 1,000 mg IV INF PRN; Protocol PRN Reason: TO ACHIEVE SCHNEIDER SCORE 2-3 Stop: 05/22/17 17:48 Last Admin: 04/27/17 18:55 Dose: 1,000 mg Sodium Chloride (Flush - Normal Saline) 10 ml IVF Q12HR [facility] Last Admin: 04/29/17 09:56 Dose: 10 ml Sodium Chloride (Flush - Normal Saline) 10 ml IVF PRN PRN PRN Reason: Saline Flush
[2017-04-29] MEDS: Fentanyl 100 MCG/2 ML VIAL SLOW IVP PRN (17:35)
[2017-04-30] MEDS: Piperacillin/Tazobactam 2.25 GM in Sodium Chloride 0.9% 100 ML IVPB SCH ×5 (00:23→23:32)
[2017-04-30] MEDS: Fentanyl 100 MCG/2 ML VIAL SLOW IVP PRN ×3 (03:51→22:50)
[2017-04-30 05:04] LABS: Anion Gap 15 mmol/L (10-20); BUN (Urea Nitrogen) 47 mg/dL (8.4-25.7); Calc. Creatinine Clearance 67 mL/min (70-130); Calcium 8.5 mg/dL (7.8-10.44); Carbon Dioxide 30 mmol/L (23-31); Chloride 120 mmol/L (98-107); Estimated GFR-MDRD 61; Glucose 134 mg/dL (80-115); Phosphorus 2.1 mg/dL (2.3-4.7); Potassium 3.4 mmol/L (3.5-5.1)
[2017-04-30 05:09] LABS: Sodium 162 mmol/L (136-145)
[2017-04-30 05:44] LABS: #Monocytes 0.3 thou/uL (0.11-0.59); #Neutrophils 11.9 thou/uL (1.40-6.50); %Basophils 0.1 % (0.0-1.0); %Eosinophils 0.1 % (0.0-10.0); %Lymphocytes 7.5 % (21.0-51.0); %Monocytes 2.6 % (0.0-10.0); %Neutrophils 89.7 % (42.0-75.0); Hemoglobin 11.7 g/dL (14.0-18.0); MDiff Complete? YES; Mean Corpuscular Hemoglobin 28.1 pg (27.0-31.0); Mean Corpuscular Volume 93.8 fl (80.0-94.0); Mean Platelet Volume 6.8 fL (7.4-10.4); PLT Morphology Comment Appears Decreased; Platelet Count 79 thou/uL (130-400); RBC Distribution Width 20.9 % (11.5-14.5); Red Blood Cell (RBC) Count 4.16 mill/uL (4.70-6.10); Target Cells SLIGHT = 2-5 cells (100X) (0-1/hpf); White Blood Cell (WBC) Count 13.2 thou/uL (4.8-10.8)
--- NOTE | 2017-04-30 09:24 | PRG ---
DATE OF SERVICE: 04/30/2017 SUBJECTIVE: Mr. Rivero is disoriented and confused. REVIEW OF SYSTEMS: Unobtainable. PHYSICAL EXAMINATION: VITAL SIGNS: Blood pressure 133/98, pulse 90s. LUNGS: Clear. CARDIAC: Irregular. ABDOMEN: Soft, nontender. EXTREMITIES: No edema. PERTINENT LABORATORY DATA: Sodium remains very high at 162. ASSESSMENT: 1. Congestive heart failure. 2. Hypernatremia. 3. Stage 2 renal failure. 4. Previous pacemaker defibrillator. PLAN: 1. He is getting free water D5W. 2. He is on digoxin. 3. Continue furosemide.
[2017-04-30] MEDS: Digoxin 0.5 MG/2 ML AMP SLOW IVP SCH (09:50)
[2017-04-30] MEDS: Furosemide 40 MG/4 ML VIAL SLOW IVP SCH ×2 (09:51→14:24)
[2017-04-30] MEDS: Pantoprazole 40 MG VIAL IVP SCH ×2 (09:51→20:24)
[2017-04-30] MEDS: Dextrose 5% in Water 1,000 ML IV SCH ×2 (10:17→14:31)
[2017-04-30] MEDS ORDERED: Potassium Phosphate 30 MMOL in Sodium Chloride 0.9% 250 ML 250 ML IVPB SCH (11:00)
--- NOTE | 2017-04-30 11:13 | PRG ---
DATE OF SERVICE: 04/30/2017 SERVICE: Pulmonary Medicine INTERVAL HISTORY: The patient is doing fine from a cardiovascular and respiratory standpoint. He is breathing fairly well today. He has been weaned down to 40% FiO2. Outside of that, he was a little bit agitated overnight. For some reason, his BiPAP was not placed on him and he kept calling out in termittently throughout the night, likely associated with his apneic events. PHYSICAL EXAMINATION: VITAL SIGNS: Afebrile, pulse 94, blood pressure 133/98, respirations 35, saturation 98% on 40% FiO2 and PEEP of 5. HEENT: Normocephalic, atraumatic. Sclerae are white. Conjunctivae pink. Oral mucosa is moist with out lesions. LUNGS: Excellent air entry. There is no prolonged expiratory phase, wheezing or rhonchi. Crackles are present HEART: Normal rate, regular. ABDOMEN: Soft, nontender, nondistended. Bowel sounds positive. MUSCULOSKELETAL: No cyanosis or clubbing. There is 1+ pitting diffusely located across the posterio r aspect of his body. LABORATORY: WBC 13.2, hemoglobin 11.7, platelets 79,000 and gently up trending. Sodium 162, potassi um 3.4. Chloride is stable at 120. Creatinine 1.40. Basic metabolic profile is otherwise unremarka ble. Phosphorus is 2.1. Multiple things are growing from the sputum. The patient is roughly even over the last 24 hours. Urine output has been more than adequate. ASSESSMENT: 1. Acute hypoxic respiratory failure, stable. 2. Acute on chronic systolic heart failure. 3. Chronic atrial fibrillation. 4. Peptic ulcer disease. 5. Acute blood loss anemia. 6. Community-acquired pneumonia secondary to Pseudomonas and methicillin-sensitive Staphylococcus au reus. 7. Pleural effusion. 8. Hypokalemia. 9. Hypernatremia. We will continue replacing free water, potassium, and also give him some phosphorus. The patient evaristo l need to remain in the ICU for the time being. He absolutely needs his BiPAP at night for central s leep apnea. I will put in a communication order to relay this information to our respiratory therapy crew. Pulmonary Critical Care will continue to follow. At the very least, he belongs in [facility] if we will need to downgrade him.
[2017-04-30] MEDS: Diltiazem HCl 125 MG, Admixture Fee 1 EACH in Sodium Chloride 0.9% 100 ML IVPB SCH (11:38)
--- NOTE | 2017-04-30 14:58 | PDOC.PN ---
- Subjective Encounter Start Date: 04/30/17 Encounter Start Time: 10:20 Pt seen for followup re: hypernatremia. On ventimask, following some commands but not reliabley, unable to answer questions, could not complete ROS. - Objective Resuscitation Status: Resuscitation Status DNR:Do Not Resuscitate MAR Reviewed: Yes Vital Signs & Weight: Vital Signs (12 hours) Temp Pulse Resp Pulse Ox 04/30/17 14:49 97 38 H 94 L 04/30/17 11:12 98 38 H 94 L 04/30/17 09:50 94 04/30/17 07:50 98 04/30/17 07:48 94 35 H 98 04/30/17 07:38 98.7 F 95 37 H 91 L 04/30/17 04:00 98.2 F Weight Admit Weight 206 lb Weight 206 lb 5.643 oz Most Recent Monitor Data Heart Rate from ECG 102 NIBP 133/98 NIBP BP-Mean 106 Respiration from ECG 40 SpO2 91 I&O: 04/29/17 04/30/17 05/01/17 06:59 06:59 06:59 Intake Total 2502 2577.7 Output Total 3380 2755 Balance -878 -177.3 Result Diagrams: 04/30/17 04:30 04/30/17 04:30 EKG Reviewed by me: Yes (Tele: vicki rust) Phys Exam - Physical Examination Constitutional: NAD HEENT: moist MMs Neck: supple Toya crackles Cardiovascular: irregular Gastrointestinal: soft Musculoskeletal: edema present Neurological: moves all 4 limbs Psychiatric: normal affect Deviation from normal: leg wounds toya+ Dx/Plan (1) Hypernatremia Code(s): E87.0 - HYPEROSMOLALITY AND HYPERNATREMIA Status: Acute (2) Hypokalemia Code(s): E87.6 - HYPOKALEMIA Status: Acute (3) CAP (community acquired pneumonia) Code(s): J18.9 - PNEUMONIA, UNSPECIFIED ORGANISM Status: Acute (4) Esophagogastric ulcer Code(s): K25.9 - GASTRIC ULCER, UNSP ACUTE OR CHRONIC, W/O HEMOR OR PERF Status: Acute (5) ALEXSANDRA (acute kidney injury) Code(s): N17.9 - ACUTE KIDNEY FAILURE, UNSPECIFIED Status: Acute (6) Elevated troponin Code(s): R74.8 - ABNORMAL LEVELS OF OTHER SERUM ENZYMES Status: Acute (7) DM2 (diabetes mellitus, type 2) Status: Chronic (8) Dyslipidemia Code(s): E78.5 - HYPERLIPIDEMIA, UNSPECIFIED Status: Chronic (9) Gout Code(s): M10.9 - GOUT, UNSPECIFIED Status: Chronic (10) Hypertension Code(s): I10 - ESSENTIAL (PRIMARY) HYPERTENSION Status: Chronic Qualifiers: Hypertension type: unspecified Qualified Code(s): I10 - Essential (primary ) hypertension (11) GI bleed Code(s): K92.2 - GASTROINTESTINAL HEMORRHAGE, UNSPECIFIED Status: Resolved - Plan plan discussed w/ family, continue antibiotics * . Continue IV D5W. Replace potassium. Hemoglobin stable. Continue digoxin for a. fib. Continue furosemide for CHF. Continue IV antibiotics for pneumonia Review of Systems - Medications/Allergies Allergies/Adverse Reactions: Allergies Allergy/AdvReac Type Severity Reaction Status Date / Time No Known Allergies Allergy Verified 04/22/17 20:19 Medications: Current Medications Acetaminophen (Tylenol) 325 mg PO Q6H PRN PRN Reason: Headache/Fever or Pain Last Admin: 04/27/17 22:01 Dose: 325 mg Albuterol/Ipratropium (Duoneb) 3 ml NEB [id number] ANA Last Admin: 04/30/17 14:49 Dose: 3 ml Digoxin (Lanoxin) 0.125 mg SLOW IVP [facility]ILY [facility] Last Admin: 04/30/17 09:50 Dose: 0.125 mg Fentanyl (Sublimaze) 25 mcg SLOW IVP Q1H PRN PRN Reason: Pain Last Admin: 04/30/17 12:55 Dose: 25 mcg Furosemide (Lasix) 40 mg SLOW IVP 0600,1400 ANA Last Admin: 04/30/17 14:24 Dose: 40 mg Piperacillin Sod/Tazobactam (Sod 2.25 gm/ Sodium Chloride) 100 mls @ 200 mls/ hr IVPB Q6HR ANA Last Admin: 04/30/17 11:40 Dose: 100 mls Diltiazem HCl 125 mg/Miscellaneous Medication 1 each/ Sodium Chloride 125 mls @ 2.5 mls/hr IVPB INF ANA PRN Reason: Protocol Last Admin: 04/30/17 11:38 Dose: 125 mls Dextrose/Water (D5w) 1,000 mls @ 125 mls/hr IV .Q8H [facility] Last Admin: 04/30/17 14:31 Dose: 1,000 mls Potassium Phosphate 30 mmol/ (Sodium Chloride) 260 mls @ 42.466 mls/hr IVPB NOW ANA Stop: 04/30/17 15:00 Last Admin: 04/30/17 11:47 Dose: 260 mls Potassium Chloride 40 meq/ (Sodium Chloride) 270 mls @ 67.5 mls/hr IVPB 1600 [facility]NA Stop: 04/30/17 20:00 Lactulose (Lactulose) 30 gm PO DAILY [facility] Last Admin: 04/30/17 09:51 Dose: Not Given Pantoprazole Sodium (Protonix) 40 mg IVP Q12HR ANA Last Admin: 04/30/17 09:51 Dose: 40 mg Sodium Chloride (Flush - Normal Saline) 10 ml IVF Q12HR [facility] Last Admin: 04/30/17 09:52 Dose: 10 ml Sodium Chloride (Flush - Normal Saline) 10 ml IVF PRN PRN PRN Reason: Saline Flush
[2017-04-30] MEDS ORDERED: Potassium Chloride 40 MEQ in Sodium Chloride 0.9% 250 ML 250 ML IVPB SCH (16:00)
[2017-05-01] MEDS: Dextrose 5% in Water 1,000 ML IV SCH ×3 (02:30→23:18)
[2017-05-01 05:09] LABS: Anion Gap 12 mmol/L (10-20); BUN (Urea Nitrogen) 45 mg/dL (8.4-25.7); Calc. Creatinine Clearance 65 mL/min (70-130); Calcium 8.4 mg/dL (7.8-10.44); Carbon Dioxide 29 mmol/L (23-31); Chloride 120 mmol/L (98-107); Estimated GFR-MDRD 65; Glucose 111 mg/dL (80-115); Potassium 3.4 mmol/L (3.5-5.1); Sodium 158 mmol/L (136-145)
[2017-05-01 05:23] LABS: #Lymphocytes 0.7 thou/uL (1.20-3.40); #Monocytes 0.3 thou/uL (0.11-0.59); #Neutrophils 8.1 thou/uL (1.40-6.50); %Basophils 0.1 % (0.0-1.0); %Eosinophils 0.2 % (0.0-10.0); %Lymphocytes 7.6 % (21.0-51.0); %Monocytes 2.8 % (0.0-10.0); %Neutrophils 89.2 % (42.0-75.0); Hemoglobin 11.6 g/dL (14.0-18.0); Hypochromia SLIGHT = 6-15 cells (100X) (0-5/hpf); MDiff Complete? YES; Mean Corpuscular HGB CONC 29.4 g/dL (32.0-36.0); Mean Corpuscular Hemoglobin 27.4 pg (27.0-31.0); Mean Corpuscular Volume 93.2 fl (80.0-94.0); Mean Platelet Volume 12.1 fL (7.4-10.4); PLT Morphology Comment Appears Decreased; Platelet Count 83 thou/uL (130-400); RBC Distribution Width 20.6 % (11.5-14.5); Red Blood Cell (RBC) Count 4.23 mill/uL (4.70-6.10); Target Cells MODERATE= 6-15 cells (100X) (0-1/hpf)
[2017-05-01] MEDS: Furosemide 40 MG/4 ML VIAL SLOW IVP SCH ×2 (05:39→14:20)
[2017-05-01] MEDS: Piperacillin/Tazobactam 2.25 GM in Sodium Chloride 0.9% 100 ML IVPB SCH (05:40)
[2017-05-01] MEDS: Digoxin 0.5 MG/2 ML AMP SLOW IVP SCH (08:03)
[2017-05-01] MEDS: Pantoprazole 40 MG VIAL IVP SCH ×2 (08:04→20:56)
[2017-05-01] MEDS ORDERED: Potassium Chloride 40 MEQ in Sodium Chloride 0.9% 250 ML 250 ML IVPB SCH (09:45)
--- NOTE | 2017-05-01 09:56 | PRG ---
DATE OF SERVICE: 05/01/2017 SERVICE: Pulmonary Medicine INTERVAL HISTORY: The patient is doing fine from a respiratory standpoint. He denies any current fe vers, chills, nausea, vomiting or chest discomfort. Otherwise, there have been no interval change in his condition. He is breathing comfortably this morning on 40% FiO2. His saturations, when they pi ck up are just fine. Otherwise, there has been no interval change to his condition. PHYSICAL EXAMINATION: VITAL SIGNS: Afebrile, pulse 94, blood pressure 118/74, respirations of 28, saturation 99% on 40% Fi O2 and a PEEP of 5. GENERAL: The patient is awake, alert, in no apparent distress. LUNGS: Decent air entry. There is no prolonged expiratory phase. Dependent crackles are present. HEART: Normal rate, regular. ABDOMEN: Soft, nontender, nondistended. Bowel sounds are positive. MUSCULOSKELETAL: No cyanosis or clubbing. No pitting in the bilateral lower extremities. NEUROLOGIC: Grossly nonfocal. LABORATORY DATA: WBC 9.0, hemoglobin 11.6, platelets 83,000 and up trending. Sodium is finally down trending nicely to 158. Potassium 3.4, chloride 120 and stable. Creatinine continues to improve to 1.33. Basic metabolic profile is otherwise unremarkable. Respiratory culture is growing Pseudomona s, Enterobacter, and Staph aureus. Blood cultures negative x1. Urine culture is also unremarkable. ASSESSMENT: 1. Acute hypoxic respiratory failure, improving. 2. Acute on chronic systolic heart failure. 3. Chronic atrial fibrillation. 4. Peptic ulcer disease. 5. Acute blood loss anemia. 6. Community-acquired pneumonia secondary to Pseudomonas and methicillin-susceptible Staphylococcus aureus. 7. Pleural effusion. 8. Hypokalemia. PLAN: We will continue replacing the patient's potassium and free water. We will initiate tube feed s today. I will back off slightly to 100 mL per hour on a D5 water. We will do what we can to start mobilizing him. He is currently working with physical therapy. We will see if they can get him int o a chair on a daily basis. Pulmonary Critical Care will continue to follow, but he will likely be d owngraded today to the [facility]
[2017-05-01 10:28] LABS: INR-International Normal Ratio 1.4
[2017-05-01 11:44] LABS: ALT (SGPT) 28 U/L (8-55); AST (SGOT) 49 U/L (5-34); Albumin 1.9 g/dL (3.4-4.8); Alkaline Phosphatase 92 U/L (40-150); Bilirubin, Direct Greater than 10.0 mg/dL (0.1-0.3); Bilirubin, Total 15.4 mg/dL (0.2-1.2); Protein, Total 7.5 g/dL (5.8-8.1)
--- NOTE | 2017-05-01 13:56 | PDOC.PN ---
- Subjective Encounter Start Date: 05/01/17 Encounter Start Time: 11:20 Pt seen for followup re: hypernatremia. More alert today, denies chest pain. - Objective Resuscitation Status: Resuscitation Status DNR:Do Not Resuscitate MAR Reviewed: Yes Vital Signs & Weight: Vital Signs (12 hours) Temp Pulse Resp Pulse Ox 05/01/17 12:00 97.9 F 05/01/17 11:56 94 L 05/01/17 11:53 72 32 H 05/01/17 08:03 94 05/01/17 08:00 97.8 F 94 32 H 92 L 05/01/17 07:00 97.8 F 05/01/17 04:00 98.6 F 05/01/17 03:00 94 40 H 97 Weight Admit Weight 206 lb Weight 191 lb 12.8 oz Most Recent Monitor Data Heart Rate from ECG 80 NIBP 137/75 NIBP BP-Mean 85 Respiration from ECG 24 SpO2 90 I&O: 04/30/17 05/01/17 05/02/17 06:59 06:59 06:59 Intake Total 2577.7 2143.6 Output Total 2755 2890 625 Balance -177.3 -746.4 -625 Result Diagrams: 05/01/17 04:30 05/01/17 04:30 EKG Reviewed by me: Yes (Tele: vicki rust) Phys Exam - Physical Examination Constitutional: NAD HEENT: moist MMs Neck: supple James crackles Cardiovascular: irregular Gastrointestinal: soft Musculoskeletal: edema present Neurological: moves all 4 limbs Psychiatric: normal affect Deviation from normal: leg wounds+ Dx/Plan (1) Hypernatremia Code(s): E87.0 - HYPEROSMOLALITY AND HYPERNATREMIA Status: Acute (2) Hypokalemia Code(s): E87.6 - HYPOKALEMIA Status: Acute (3) CAP (community acquired pneumonia) Code(s): J18.9 - PNEUMONIA, UNSPECIFIED ORGANISM Status: Acute (4) Esophagogastric ulcer Code(s): K25.9 - GASTRIC ULCER, UNSP ACUTE OR CHRONIC, W/O HEMOR OR PERF Status: Acute (5) ALEXSANDRA (acute kidney injury) Code(s): N17.9 - ACUTE KIDNEY FAILURE, UNSPECIFIED Status: Acute (6) Elevated troponin Code(s): R74.8 - ABNORMAL LEVELS OF OTHER SERUM ENZYMES Status: Acute (7) DM2 (diabetes mellitus, type 2) Status: Chronic (8) Dyslipidemia Code(s): E78.5 - HYPERLIPIDEMIA, UNSPECIFIED Status: Chronic (9) Gout Code(s): M10.9 - GOUT, UNSPECIFIED Status: Chronic (10) Hypertension Code(s): I10 - ESSENTIAL (PRIMARY) HYPERTENSION Status: Chronic Qualifiers: Hypertension type: unspecified Qualified Code(s): I10 - Essential (primary ) hypertension (11) GI bleed Code(s): K92.2 - GASTROINTESTINAL HEMORRHAGE, UNSPECIFIED Status: Resolved - Plan plan discussed w/ family * . Sodium improving. Replace potassium. Continue antibiotics as below. Continue diuretics. Continue digoxin. Review of Systems - Review of Systems Respiratory: negative: Cough, Dry, Shortness of Breath, Hemoptysis, SOB with Excertion, Pleuritic Pain, Sputum, Wheezing Cardiovascular: negative: chest pain, palpitations, orthopnea, paroxysmal nocturnal dyspnea, edema, light headedness - Medications/Allergies Allergies/Adverse Reactions: Allergies Allergy/AdvReac Type Severity Reaction Status Date / Time No Known Allergies Allergy Verified 04/22/17 20:19 Medications: Current Medications Acetaminophen (Tylenol) 325 mg PO Q6H PRN PRN Reason: Headache/Fever or Pain Last Admin: 04/27/17 22:01 Dose: 325 mg Albuterol/Ipratropium (Duoneb) 3 ml NEB [id number] [facility] Last Admin: 05/01/17 11:57 Dose: Not Given Digoxin (Lanoxin) 0.125 mg SLOW IVP DAILY [facility] Last Admin: 05/01/17 08:03 Dose: 0.125 mg Fentanyl (Sublimaze) 25 mcg SLOW IVP Q1H PRN PRN Reason: Pain Last Admin: 04/30/17 22:50 Dose: 25 mcg Furosemide (Lasix) 40 mg SLOW IVP 0600,1400 [facility] Last Admin: 05/01/17 05:39 Dose: 40 mg Diltiazem HCl 125 mg/Miscellaneous Medication 1 each/ Sodium Chloride 125 mls @ 2.5 mls/hr IVPB INF ANA PRN Reason: Protocol Last Admin: 04/30/17 11:38 Dose: 125 mls Dextrose/Water (D5w) 1,000 mls @ 75 mls/hr IV .[id number] [facility] Last Admin: 05/01/17 11:57 Dose: 1,000 mls Pantoprazole Sodium (Protonix) 40 mg IVP Q12HR [facility] Last Admin: 05/01/17 08:04 Dose: 40 mg Potassium Chloride (Klor-Con) 40 meq PO Q4H [facility] Stop: 05/01/17 18:31 Last Admin: 05/01/17 11:56 Dose: 40 meq Sodium Chloride (Flush - Normal Saline) 10 ml IVF Q12HR [facility] Last Admin: 05/01/17 08:04 Dose: 10 ml Sodium Chloride (Flush - Normal Saline) 10 ml IVF PRN PRN PRN Reason: Saline Flush
[2017-05-01 15:17] VITALS: BMI 25.2
--- NOTE | 2017-05-01 18:59 | PRG ---
DATE OF SERVICE: 05/01/2017 SUBJECTIVE: Mr. Rivero is confused and disoriented. Unable to give review of systems. OBJECTIVE: VITAL SIGNS: Blood pressure 127/72, pulse 80 to 98. LUNGS: Some rhonchi. CARDIAC: Normal S1, normal S2. ASSESSMENT: 1. Advanced congestive heart failure. 2. Respiratory insufficiency. 3. History of gastrointestinal bleed. PLAN: The patient's current status is do not resuscitate. Prognosis appears very poor. Supportive care is appropriate.
[2017-05-02] MEDS: Diltiazem HCl 125 MG, Admixture Fee 1 EACH in Sodium Chloride 0.9% 100 ML IVPB SCH (04:00)
[2017-05-02 04:36] LABS: Anion Gap 14 mmol/L (10-20); BUN (Urea Nitrogen) 43 mg/dL (8.4-25.7); Calc. Creatinine Clearance 76 mL/min (70-130); Calcium 8.2 mg/dL (7.8-10.44); Carbon Dioxide 26 mmol/L (23-31); Chloride 119 mmol/L (98-107); Estimated GFR-MDRD 77; Glucose 159 mg/dL (80-115); Potassium 3.7 mmol/L (3.5-5.1); Sodium 155 mmol/L (136-145)
[2017-05-02 04:53] LABS: Anisocytosis MODERATE=16-30 cells (100X) (0-5/hpf); Band 7 % (5-11); Hemoglobin 11.6 g/dL (14.0-18.0); Lymphocytes 11 % (21-51); MDiff Complete? YES; Mean Corpuscular HGB CONC 29.6 g/dL (32.0-36.0); Mean Corpuscular Hemoglobin 27.4 pg (27.0-31.0); Mean Corpuscular Volume 92.5 fl (80.0-94.0); Mean Platelet Volume 9.8 fL (7.4-10.4); Monocytes 4 % (0-10); Neutrophil 78 % (42-75); PLT Morphology Comment Appears Decreased; Platelet Count 92 thou/uL (130-400); RBC Distribution Width 21.3 % (11.5-14.5); Red Blood Cell (RBC) Count 4.25 mill/uL (4.70-6.10); Target Cells MODERATE= 6-15 cells (100X) (0-1/hpf); White Blood Cell (WBC) Count 8.1 thou/uL (4.8-10.8)
[2017-05-02] MEDS: Furosemide 40 MG/4 ML VIAL SLOW IVP SCH ×2 (05:27→14:46)
[2017-05-02] MEDS: Pantoprazole 40 MG VIAL IVP SCH ×2 (07:52→20:56)
[2017-05-02] MEDS: Digoxin 0.5 MG/2 ML AMP SLOW IVP SCH (07:52)
[2017-05-02] MEDS: Dextrose 5% in Water 1,000 ML IV SCH (14:49)
--- NOTE | 2017-05-02 18:09 | PDOC.PN ---
- Subjective Encounter Start Date: 05/02/17 Encounter Start Time: 09:40 Pt seen for followup re: hypernatremia. More alert today, answering questions. No chest pain or shortness of breath. - Objective Resuscitation Status: Resuscitation Status DNR:Do Not Resuscitate MAR Reviewed: Yes Vital Signs & Weight: Vital Signs (12 hours) Temp Pulse Pulse Resp BP BP Pulse Ox 05/02/17 15:24 97.7 F 96 20 162/79 H 92 L 05/02/17 13:40 99.7 F H 100 49 H 92 L 05/02/17 11:10 120 H 40 H 91 L 05/02/17 11:00 98.7 F 05/02/17 09:40 105 H 143/63 H 05/02/17 08:00 98.4 F 105 H 30 H 99 05/02/17 07:52 105 H 05/02/17 07:50 98.4 F 05/02/17 07:08 94 L 05/02/17 07:06 105 H 45 H 92 L Pulse Ox 05/02/17 15:24 05/02/17 13:40 05/02/17 11:10 05/02/17 11:00 05/02/17 09:40 92 L 05/02/17 08:00 05/02/17 07:52 05/02/17 07:50 05/02/17 07:08 05/02/17 07:06 Weight Admit Weight 206 lb Weight 191 lb 12.8 oz Most Recent Monitor Data Heart Rate from ECG 95 NIBP 153/85 NIBP BP-Mean 113 Respiration from ECG 49 SpO2 79 I&O: 05/01/17 05/02/17 05/03/17 06:59 06:59 06:59 Intake Total 2143.6 3368.3 581.4 Output Total 2890 1825 1350 Balance -746.4 1543.3 -768.6 Result Diagrams: 05/03/17 04:48 05/03/17 04:48 EKG Reviewed by me: Yes (Tele: vicki rust) Phys Exam - Physical Examination Constitutional: NAD HEENT: moist MMs Neck: supple Respiratory: clear to auscultation bilateral James crackles Gastrointestinal: soft Musculoskeletal: edema present Psychiatric: normal affect Deviation from normal: leg wounds present Dx/Plan (1) Hypernatremia Code(s): E87.0 - HYPEROSMOLALITY AND HYPERNATREMIA Status: Acute (2) CAP (community acquired pneumonia) Code(s): J18.9 - PNEUMONIA, UNSPECIFIED ORGANISM Status: Acute (3) Esophagogastric ulcer Code(s): K25.9 - GASTRIC ULCER, UNSP ACUTE OR CHRONIC, W/O HEMOR OR PERF Status: Acute (4) Elevated troponin Code(s): R74.8 - ABNORMAL LEVELS OF OTHER SERUM ENZYMES Status: Acute (5) DM2 (diabetes mellitus, type 2) Status: Chronic (6) Dyslipidemia Code(s): E78.5 - HYPERLIPIDEMIA, UNSPECIFIED Status: Chronic (7) Gout Code(s): M10.9 - GOUT, UNSPECIFIED Status: Chronic (8) Hypertension Code(s): I10 - ESSENTIAL (PRIMARY) HYPERTENSION Status: Chronic Qualifiers: Hypertension type: unspecified Qualified Code(s): I10 - Essential (primary ) hypertension (9) GI bleed Code(s): K92.2 - GASTROINTESTINAL HEMORRHAGE, UNSPECIFIED Status: Resolved (10) Hypokalemia Code(s): E87.6 - HYPOKALEMIA Status: Resolved (11) ALEXSANDRA (acute kidney injury) Code(s): N17.9 - ACUTE KIDNEY FAILURE, UNSPECIFIED Status: Resolved - Plan plan discussed w/ family, PT/OT * . Sodium improving. Continue PPI. Review of Systems - Medications/Allergies Allergies/Adverse Reactions: Allergies Allergy/AdvReac Type Severity Reaction Status Date / Time No Known Allergies Allergy Verified 04/22/17 20:19 Medications: Current Medications Acetaminophen (Tylenol) 325 mg PO Q6H PRN PRN Reason: Headache/Fever or Pain Last Admin: 04/27/17 22:01 Dose: 325 mg Albuterol/Ipratropium (Duoneb) 3 ml NEB [id number] ANA Last Admin: 05/02/17 14:58 Dose: 3 ml Digoxin (Lanoxin) 0.125 mg SLOW IVP DAILY [facility] Last Admin: 05/02/17 07:52 Dose: 0.125 mg Fentanyl (Sublimaze) 25 mcg SLOW IVP Q1H PRN PRN Reason: Pain Last Admin: 04/30/17 22:50 Dose: 25 mcg Furosemide (Lasix) 40 mg SLOW IVP 0600,1400 [facility] Last Admin: 05/02/17 14:46 Dose: 40 mg Diltiazem HCl 125 mg/Miscellaneous Medication 1 each/ Sodium Chloride 125 mls @ 2.5 mls/hr IVPB INF ANA PRN Reason: Protocol Last Admin: 05/02/17 04:00 Dose: 125 mls Dextrose/Water (D5w) 1,000 mls @ 75 mls/hr IV .[id number] ANA Last Admin: 05/02/17 14:49 Dose: 1,000 mls Pantoprazole Sodium (Protonix) 40 mg IVP Q12HR [facility]NA Last Admin: 05/02/17 07:52 Dose: 40 mg Sodium Chloride (Flush - Normal Saline) 10 ml IVF Q12HR ANA Last Admin: 05/02/17 07:53 Dose: 10 ml Sodium Chloride (Flush - Normal Saline) 10 ml IVF PRN PRN PRN Reason: Saline Flush
--- NOTE | 2017-05-02 19:28 | PRG ---
DATE OF SERVICE: 05/02/2017 Mr. Rivero was evaluated. He was sitting on a neuro chair next to bed. He was viable in his lab. He is pleasant and cooperative. He is in no distress but he looks extremely weak. He has signs of diaphragm weakness and is tachypne ic with small tidal volume, respiratory pattern. OBJECTIVE: VITAL SIGNS: He is afebrile, heart rate in the 90s, respiratory rate in the 30s to low 40s, oximetry is in the low 90s. Blood pressure this afternoon 162/79. LUNGS: Remarkable for rhonchi bilaterally, they are mild. HEART: Regular rhythm. ABDOMEN: Soft. IMPRESSION: 1. Advanced cardiomyopathy. 2. Respiratory insufficiency with failure to adequately clear secretions. 3. History of gastrointestinal blood loss. His weakness is the biggest factor right now with regards to his care and chance of survival. Other problems include atrial fibrillation, blood loss anemia, pneumonia with Pseudomonas and MRSA, p leural effusion, electrolyte imbalance. I am not sure he will survive this. He is now a DO NOT RESUSCITATE patient. There is no plan to alberta ntubate him. I suspect his secretions have become the biggest issue. His family is in the room and I answered all their questions.
[2017-05-03 05:08] LABS: #Lymphocytes 0.6 thou/uL (1.20-3.40); #Monocytes 0.1 thou/uL (0.11-0.59); #Neutrophils 5.6 thou/uL (1.40-6.50); %Basophils 0.1 % (0.0-1.0); %Eosinophils 0.5 % (0.0-10.0); %Lymphocytes 9.5 % (21.0-51.0); %Neutrophils 87.9 % (42.0-75.0); Hemoglobin 11.5 g/dL (14.0-18.0); Mean Corpuscular HGB CONC 29.8 g/dL (32.0-36.0); Mean Corpuscular Hemoglobin 27.5 pg (27.0-31.0); Mean Corpuscular Volume 92.1 fl (80.0-94.0); Mean Platelet Volume 11.8 fL (7.4-10.4); Platelet Count 96 thou/uL (130-400); RBC Distribution Width 21.4 % (11.5-14.5); White Blood Cell (WBC) Count 6.4 thou/uL (4.8-10.8)
[2017-05-03 05:12] LABS: Anion Gap 11 mmol/L (10-20); BUN (Urea Nitrogen) 37 mg/dL (8.4-25.7); Calc. Creatinine Clearance 78 mL/min (70-130); Calcium 8.3 mg/dL (7.8-10.44); Carbon Dioxide 29 mmol/L (23-31); Chloride 120 mmol/L (98-107); Estimated GFR-MDRD 79; Glucose 112 mg/dL (80-115); Potassium 3.1 mmol/L (3.5-5.1); Sodium 157 mmol/L (136-145)
[2017-05-03] MEDS: Dextrose 5% in Water 1,000 ML IV SCH (05:43)
[2017-05-03] MEDS: Furosemide 40 MG/4 ML VIAL SLOW IVP SCH ×2 (05:44→17:16)
[2017-05-03] MEDS ORDERED: Potassium Chloride 40 MEQ in Sodium Chloride 0.9% 500 ML IVPB SCH (08:00)
[2017-05-03] MEDS: Pantoprazole 40 MG VIAL IVP SCH ×2 (08:09→20:34)
[2017-05-03] MEDS: Digoxin 0.5 MG/2 ML AMP SLOW IVP SCH (08:10)
--- NOTE | 2017-05-03 08:31 | RAD ---
SINGLE VIEW OF THE CHEST: COMPARISON: 04/28/17. HISTORY: Respiratory distress. FINDINGS: A single view of the chest shows an enlarged but stable cardiomediastinal silhouette. The endotrache al tube has been removed. The NG Tube is unchanged in position. The pacemaker is stable in position . There are improving multifocal infiltrates in the lungs. There may be a small left pleural effusi on. IMPRESSION: Improving multifocal pneumonia. POS: [facility]
[2017-05-03] MEDS: Diltiazem HCl 125 MG, Admixture Fee 1 EACH in Sodium Chloride 0.9% 100 ML IVPB SCH (09:51)
[2017-05-03] MEDS ORDERED: Furosemide 40 MG/4 ML VIAL SLOW IVP SCH (12:45)
[2017-05-03] MEDS ORDERED: Dextrose 5% in Water 1,000 ML IV SCH (14:50)
[2017-05-03] MEDS ORDERED: Scopolamine 1.5 mg/72 hour Patch TD SCH (15:00)
--- NOTE | 2017-05-03 16:02 | PRG ---
DATE OF SERVICE: 05/03/2017 SUBJECTIVE: Mr. Rivero get tired. His respiratory rates in the 40s, tidal volumes are below 200 mL m y guess. OBJECTIVE: VITAL SIGNS: He is afebrile, heart rate in the 90s, oximetry is 89% to 85% on 15 liter flow. Blood pressure 132/86. NECK: Remarkable for rhonchi consistent with retained secretions. HEART: Regular rhythm. ABDOMEN: Soft. LABORATORY: Sodium 157, potassium 3.1, chloride 120, bicarbonate 29, BUN 37, creatinine 1.12. White count 6.4, hemoglobin 11.5, platelets 96,000. Chest radiograph was done today is reviewed by me. This shows patchy alveolar infiltrates on the right and increased interstitial markings on the left w ith atelectasis at the left base. Compare to a film on 04/28/2017, it sounds actually improved in my opinion. IMPRESSION: Respiratory failure with respiratory muscle fatigue. I have explained to the family in the room that it is very likely he will succumb to this in 12 to 24 hours. Adding diuretics will just make his secretions thick and has scopolamine patch. We pulled his NG tub e for comfort. He will have ice chips for comfort, which made him very happy. I asked him if he nee ded anything and he told me he was okay, but he quickly goes back to sleep. Serial lab work will pro bably not change the outcome here as we are dealing predominantly with severe deconditioning in my op inion. He is relatively young at 66 years of age. He also has a severe cardiomyopathy and has becom e extremely weakened by these frequent admissions and recent intubations. I do not think he can fany sherif from this as I have explained to the family.
[2017-05-03] MEDS: Fentanyl 100 MCG/2 ML VIAL SLOW IVP PRN ×2 (16:33→20:28)
--- NOTE | 2017-05-03 17:37 | PDOC.PN ---
- Subjective Encounter Start Date: 05/03/17 Encounter Start Time: 11:00 Pt seen for followup re: hypernatremia. Pt unable to answer questions, in moderate distress. - Objective Resuscitation Status: Resuscitation Status DNR:Do Not Resuscitate MAR Reviewed: Yes Vital Signs & Weight: Vital Signs (12 hours) Temp Pulse Resp BP Pulse Ox 05/03/17 15:30 101.6 F H 115 H 44 H 93/69 05/03/17 12:18 85 L 05/03/17 12:00 99.4 F 98 40 H 132/86 89 L 05/03/17 08:10 96 05/03/17 07:45 98.0 F 96 41 H 88 L 05/03/17 07:43 98.0 F 96 41 H 124/78 88 L 05/03/17 07:25 90 L 05/03/17 07:22 96 44 H 90 L Weight Admit Weight 206 lb Weight 191 lb 12.8 oz Most Recent Monitor Data Heart Rate from ECG 95 NIBP 153/85 NIBP BP-Mean 113 Respiration from ECG 49 SpO2 79 I&O: 05/02/17 05/03/17 05/04/17 06:59 06:59 06:59 Intake Total 3368.3 2811.9 30 Output Total 1825 4150 Balance 1543.3 -1338.1 30 Result Diagrams: 05/03/17 04:48 05/03/17 04:48 EKG Reviewed by me: Yes (Tele: vicki rust) Phys Exam - Physical Examination In moderate distress HEENT: moist MMs Neck: supple James crackles Cardiovascular: irregular Gastrointestinal: soft Neurological: moves all 4 limbs Psychiatric: normal affect Skin: no rash Dx/Plan (1) Hypernatremia Code(s): E87.0 - HYPEROSMOLALITY AND HYPERNATREMIA Status: Acute (2) CAP (community acquired pneumonia) Code(s): J18.9 - PNEUMONIA, UNSPECIFIED ORGANISM Status: Acute (3) Esophagogastric ulcer Code(s): K25.9 - GASTRIC ULCER, UNSP ACUTE OR CHRONIC, W/O HEMOR OR PERF Status: Acute (4) Elevated troponin Code(s): R74.8 - ABNORMAL LEVELS OF OTHER SERUM ENZYMES Status: Acute (5) DM2 (diabetes mellitus, type 2) Status: Chronic (6) Dyslipidemia Code(s): E78.5 - HYPERLIPIDEMIA, UNSPECIFIED Status: Chronic (7) Gout Code(s): M10.9 - GOUT, UNSPECIFIED Status: Chronic (8) Hypertension Code(s): I10 - ESSENTIAL (PRIMARY) HYPERTENSION Status: Chronic Qualifiers: Hypertension type: unspecified Qualified Code(s): I10 - Essential (primary ) hypertension (9) GI bleed Code(s): K92.2 - GASTROINTESTINAL HEMORRHAGE, UNSPECIFIED Status: Resolved (10) Hypokalemia Code(s): E87.6 - HYPOKALEMIA Status: Resolved (11) ALEXSANDRA (acute kidney injury) Code(s): N17.9 - ACUTE KIDNEY FAILURE, UNSPECIFIED Status: Resolved - Plan plan discussed w/ family * . Pt continues to decline. Likely for comfort measures. PCCM following. prognosis poor. Review of Systems - Review of Systems Respiratory: Cough, SOB with Excertion. negative: Dry, Shortness of Breath, Hemoptysis, Pleuritic Pain, Sputum, Wheezing Cardiovascular: negative: chest pain, palpitations, orthopnea, paroxysmal nocturnal dyspnea, edema, light headedness - Medications/Allergies Allergies/Adverse Reactions: Allergies Allergy/AdvReac Type Severity Reaction Status Date / Time No Known Allergies Allergy Verified 04/22/17 20:19 Medications: Current Medications Acetaminophen (Tylenol) 325 mg PO Q6H PRN PRN Reason: Headache/Fever or Pain Last Admin: 04/27/17 22:01 Dose: 325 mg Albuterol/Ipratropium (Duoneb) 3 ml NEB [id number] [facility] Last Admin: 05/03/17 16:59 Dose: Not Given Digoxin (Lanoxin) 0.125 mg SLOW IVP DAILY [facility] Last Admin: 05/03/17 08:10 Dose: 0.125 mg Fentanyl (Sublimaze) 25 mcg SLOW IVP Q1H PRN PRN Reason: Pain Last Admin: 05/03/17 16:33 Dose: 25 mcg Diltiazem HCl 125 mg/Miscellaneous Medication 1 each/ Sodium Chloride 125 mls @ 2.5 mls/hr IVPB INF ANA PRN Reason: Protocol Last Admin: 05/03/17 09:51 Dose: 125 mls Dextrose/Water (D5w) 1,000 mls @ 50 mls/hr IV .Q20H [facility] Last Admin: 05/03/17 16:32 Dose: 1,000 mls Pantoprazole Sodium (Protonix) 40 mg IVP Q12HR ANA Last Admin: 05/03/17 08:09 Dose: 40 mg Scopolamine (Transderm Scop) 1.5 mg TD Q3D ANA Last Admin: 05/03/17 16:33 Dose: 1.5 mg Sodium Chloride (Flush - Normal Saline) 10 ml IVF Q12HR ANA Last Admin: 05/03/17 08:09 Dose: 10 ml Sodium Chloride (Flush - Normal Saline) 10 ml IVF PRN PRN PRN Reason: Saline Flush Last Admin: 05/02/17 20:59 Dose: 10 ml
[2017-05-04 00:46] VITALS: BP 89/56; TEMP 99.6
--- NOTE | 2017-05-05 13:25 | DIS ---
SUMMARY DATE OF ADMISSION: 04/22/2017 Patient on 05/04/2017. DISCHARGE DIAGNOSES: 1. Acute respiratory failure. 2. Community-acquired pneumonia. 3. Gastrointestinal bleed. 4. Atrial fibrillation with rapid ventricular response. 5. Hypernatremia. 6. Acute on chronic systolic congestive heart failure. 7. Hypokalemia. HOSPITAL COURSE: Mr. Rivero was a pleasant 66-year-old gentleman, who was admitted to [facility] on 04/22/2017 for GI bleed. He was intubated for airway protection at the time of admission. He was seen by Gastroenterology Service and underwent emergent EGD on 04/22/2017. He wa s found to have a large ulcer at the GE junction and bland ulcers in the duodenum. He also had a rep eat EGD on 04/27/2017, which showed improved findings. He was seen by Pulmonology Service. He was started on antibiotics for community-acquired pneumonia. Respiratory cultures grew Pseudomonas, Enterococcus and Staphylococcus aureus. He developed atrial fibrillation with rapid ventricular response and was seen by Cardiology Service. He received medications for atrial fibrillation, with improvement in heart rate. He was extubated on 04/29/2017. He continued to be on a monitored unit. On 05/02/2017, he declined. After discussion between the patient's family and Pulmonary Critical Car e Service, the patient was made DNR. He continued to decline and on 05/04/2017.
== END 2017-05-04 04:44 | disposition expired | DRG 377 ==
LOC: ERS 13:26 → CCU 16:12 → IMCU/EMU 05-02 14:40
PROVIDERS: ADMIT Internal Medicine; ATTEND Internal Medicine
PROC: 30233K1 Transfusion of Nonautologous Frozen Plasma into Peripheral Vein, Percutaneous Approach (ICD-10-PCS; 2017-04-22)
PROC: 0BH17EZ Insertion of Endotracheal Airway into Trachea, Via Natural or Artificial Opening (ICD-10-PCS; 2017-04-22)
PROC: 5A1955Z Respiratory Ventilation, Greater than 96 Consecutive Hours (ICD-10-PCS; 2017-04-22)
PROC: 0W3P8ZZ Control Bleeding in Gastrointestinal Tract, Via Natural or Artificial Opening Endoscopic (ICD-10-PCS; principal; 2017-04-27)
PROC: 3E0G8GC Introduction of Other Therapeutic Substance into Upper GI, Via Natural or Artificial Opening Endoscopic (ICD-10-PCS; 2017-04-27)
PROC: 0BP1XDZ Removal of Intraluminal Device from Trachea, External Approach (ICD-10-PCS; 2017-04-28)
PROC: 0DB38ZX Excision of Lower Esophagus, Via Natural or Artificial Opening Endoscopic, Diagnostic (ICD-10-PCS; 2017-04-28)
PROC: 5A09357 Assistance with Respiratory Ventilation, Less than 24 Consecutive Hours, Continuous Positive Airway Pressure (ICD-10-PCS; 2017-04-28)
DX: K25.4 Chronic or unspecified gastric ulcer with hemorrhage (principal); J15.212 Pneumonia due to Methicillin resistant Staphylococcus aureus; J96.01 Acute respiratory failure with hypoxia; I50.23 Acute on chronic systolic (congestive) heart failure; G93.40 Encephalopathy, unspecified; J15.1 Pneumonia due to Pseudomonas; J90 Pleural effusion, not elsewhere classified; E87.0 Hyperosmolality and hypernatremia; E87.2 Acidosis; D62 Acute posthemorrhagic anemia; I13.0 Hypertensive heart and chronic kidney disease with heart failure and stage 1 through stage 4 chronic kidney disease, or unspecified chronic kidney disease; I42.9 Cardiomyopathy, unspecified; J98.11 Atelectasis; K26.9 Duodenal ulcer, unspecified as acute or chronic, without hemorrhage or perforation; I50.9 Heart failure, unspecified; I48.2 Chronic atrial fibrillation; N18.3 Chronic kidney disease, stage 3 (moderate); E87.8 Other disorders of electrolyte and fluid balance, not elsewhere classified; K44.9 Diaphragmatic hernia without obstruction or gangrene; E87.6 Hypokalemia; K27.9 Peptic ulcer, site unspecified, unspecified as acute or chronic, without hemorrhage or perforation; G47.31 Primary central sleep apnea; R79.1 Abnormal coagulation profile; Z66 Do not resuscitate; Z95.810 Presence of automatic (implantable) cardiac defibrillator; E78.6 Lipoprotein deficiency; M10.9 Gout, unspecified
CPT/HCPCS: 31500; 36415; 36430; 36556; 51702; 71045; 80048; 80053; 80076; 80162; 81003; 81015; 82140; 82553; 82728; 82805; 83540; 83550; 83605; 83630; 83690; 83735; 83880; 84100; 84484; 85025; 85610; 85730; 86850; 86900; 86901; 87040; 87070; 87077; 87086; 87186; 87205; 87324; 87328; 87329; 87449; 87493; 87899; 88305; 88312; 88313; 90471; 90682; 93005; 93010; 93306; 94002; 94003; 94640; 94660; 94760; 96365; 96366; 96368; 96374; 99292; A4216; C1751; C9113; G0008; G8978-GP-CM; G8979-GP-CK; J0171; J0696; J1160; J1940; J2270; J2354; J2543; J2704; J3010; J3475; J3480; J7050; J7070; J7620; P9059; Q2036